=== PATIENT | female | born 1955 | race Caucasian/White ===

== ENCOUNTER 2019-11-12 20:03 | Emergency (ER) | payer SELFPAY ==
--- NOTE | 2019-11-12 20:14 | ED.PSYCH ---
HPI - Psych General Chief Complaint: Psychiatric Symptoms Stated Complaint: psych Time Seen by Provider: 11/12/19 20:05 Source: patient, RN notes reviewed and police Mode of arrival: EMS Limitations: no limitations History of Present Illness HPI Narrative: Pt is a 63 y/o female who presents to the ED, via EMS from home, with c/o behavioral changes that occurred earlier this afternoon. Pt has a hx of anxiety and schizophrenia. Pt thinks is and he is really alive. Due to pt?s psychosis, pt has a court order for the pt not to be at the residence that she shared with her spouse. Today the pt showed up at the house to get her belongings and her spouse called the police. Pt thought the police officers were not real police officers. Pt states that the men were at the house to kill her. Pt states that she was sitting in her living room whenever several men came into her house that she did not recognize. Pt states that she was served and was told that she needed to get out of the house. Pt states that her recently passed and she has been looking for his certificate. She notes that she went to the police station [employer], but there was nobody there. She notes that she went back home and the police came to her house and were aggressive towards her. Pt states that she told the police to shoot her. She states that she was frightened by the men and she requested that the men shoot her. She reports having a rash on her chest d/t having poison oak from carrying logs. Per police, pt's spouse is still alive and they state they talked to the spouse prior to the pt arriving to the ED. Pt was recently kicked out of her home. Pt and her spouse are in a divorce settlement. Police state that pt has been delusional. Police state the pt's spouse lives at home, but the pt does not live with him. Police note that the pt would come to her 's house and steal things. Pt tried to flee away from the police while at her 's house and again when police tried to get the pt into the ambulance. Police confirm the pt told the police officers to shoot her. Police state the pt's behavior has become more erratic. Pt also denies a cough, nasal discharge, nausea, vomiting, diarrhea, fever, chills, visual hallucinations, auditory hallucinations, homicidal ideation, and suicidal ideation. Pt states that she would like to refuse blood work. complaint: other (behavioral changes) Onset (ago): hour(s) Duration: constant Associated psychiatric symptoms: none Associated symptoms: denies other symptoms Related Data Allergies Allergy/AdvReac Type Severity Reaction Status Date / Time ETHER ALLEWRGY Allergy Unknown Uncoded 04/28/09 07:42 Review of Systems Review of Systems: All systems reviewed & are unremarkable except as noted in HPI and below Constitutional: Constitutional: Denies chills and Denies fever(s) ENT: Denies nasal discharge Respiratory: Respiratory: Denies cough Gastrointestinal: Gastrointestinal: Denies diarrhea, Denies nausea and Denies vomiting Integumentary/Breasts: Skin/Breast: Reports rash (on chest) Psychiatric: Psychiatric: Reports behavioral changes, Denies auditory hallucinations, Denies visual hallucinations, Denies homicidal ideation and Denies suicidal ideation PMFSH Past Medical History Medical History (Updated 11/13/19 @ 05:34 by Grayson Carrera MD) Anxiety Psychosis Schizophrenia Surgical History Surgical History (Updated 11/12/19 @ 20:21 by Carol Woods) H/O arthroscopy of left knee Hx of tonsillectomy Social History Social History (Updated 11/12/19 @ 20:21 by Carol Woods) Smoking status: Never smoker Second hand tobacco smoke exposure: No Alcohol intake: current Exam Const: General: healthy appearing, no acute distress, well developed and alert Orientation/consciousness: patient oriented x3 Limitations: no limitations HENMT: Head: normocephalic and atraumatic General nose exam: N
[2019-11-12 20:24] VITALS: BP 181/104; PULSE 85; RESP 20; TEMP 36.7; O2SAT 97
[2019-11-12 20:40] LABS: Basophils Absolute Auto 0.1 K/mm3 (0.0-0.1); Basophils Percent Auto 0.7 % (0.2-1.2); Eosinophils Absolute Auto 0.4 K/mm3 (0-0.3); Eosinophils Percent Auto 3.9 % (0-4.4); Hematocrit 39.2 % (37.0-47.0); Hemoglobin 12.6 g/dL (12.0-15.0); Immature Granulocyte Absolute 0.08 K/mm3 (0.00-0.031); Immature Granulocyte Percent A 0.8 % (0-0.5); Lymphocytes Absolute Auto 2.03 K/mm3 (0.9-3.2); Lymphocytes Percent Auto 20.1 % (18.3-44.2); Mean Corpuscular HGB Conc 32.1 g/dl (32-36); Mean Corpuscular Hemoglobin 29.8 pg (26-34); Mean Corpuscular Volume 92.7 fl (80-100); Mean Platelet Volume 9.3 fl (7.4-10.4); Monocytes Absolute Auto 0.5 K/mm3 (0.1-0.6); Monocytes Percent Auto 4.6 % (2.6-8.5); Neutrophils Absolute Auto 7.1 K/mm3 (1.3-6.7); Neutrophils Percent Auto 69.9 % (45.5-73.1); Platelet Count Result 462 k/mm3 (150-375); Red Blood Count 4.23 M/mm3 (4.2-5.4); Red Cell Distribution Width 14.2 % (11.5-14.5); White Blood Count 10.1 K/mm3 (4.5-10.0)
[2019-11-12 20:53] LABS: Alanine Aminotransferase 20 U/L (4-35); Albumin Level 4.7 g/dL (3.5-5.1); Alkaline Phosphatase 147 U/L (38-126); Aspartate Amino Transferase 22 U/L (14-36); Bilirubin,Total 0.3 mg/dL (0.2-1.3); Blood Urea Nitrogen 18 mg/dL (7-17); Calcium 9.2 mg/dL (8.4-10.2); Carbon Dioxide 26 mmol/L (22-30); Chloride 104 mmol/L (98-107); Estimated CRCL calculation 61 ml/min; Estimated Glomerular Filt Rate 56; Glucose 124 mg/dL (65-105); Potassium 4.1 mmol/L (3.4-5.0); Sodium 139 mmol/L (137-145)
[2019-11-12 20:54] LABS: Ethanol < 10 mg/dL (<10)
[2019-11-12 21:49] LABS: Add Urine Microscopic? YES; Appearance Urine Clear (Clear); Bacteria Urine Trace /hpf; Bilirubin Urine Negative (Negative); Blood Urine Negative (Negative); Color Urine Yellow (Yellow); Glucose Urine UA Negative (Negative); Ketones Urine Negative (Negative); Leukocyte Esterase Ur 1+ LEU/UL (Negative); Mucus Urine Rare /lpf; Nitrate Urine Negative (Negative); Protein Urine Negative (Negative); Specific Grav Ur 1.025 (1.001-1.035); Squamous Epithelial Cell Urine Few /hpf (Few); Urobilinogen Urine Negative mg/dL (<2.0)
[2019-11-12 22:09] LABS: Barbiturate Screen Urine Negative (Negative); Benzodiazepines Screen Urine Negative (Negative)
[2019-11-12 22:21] LABS: Amphetamine Screen Urine Negative (Negative)
[2019-11-12 22:24] LABS: Cannabinoid Screen Urine Negative (Negative); Cocaine Screen Urine Negative (Negative); Opiate Screen Urine Negative (Negative); Phencyclidine Screen Urine Negative (Negative)
[2019-11-12 22:37] LABS: Methadone Screen Urine Negative (Negative)
--- NOTE | 2019-11-12 22:39 | PC.NURSE ---
[facility] [phone] they will send someone out to evaluate pt
--- NOTE | 2019-11-13 02:00 | PC.NURSE ---
[facility] ([place] CALLED AND STATED THAT THEY HAVE NO [facility]EMALES BEDS AVAILABLE AT THIS TIME.
[2019-11-13 02:05] VITALS: BP 169/104; PULSE 86; RESP 16; TEMP 36.7; O2SAT 98
--- NOTE | 2019-11-13 02:06 | PC.NURSE ---
[facility] CALLED FOR INFORMATION ON PATIENT. SENT MEDICAL STABILITY FORM TO BE FILLED OUT AND FAXED BACK.
--- NOTE | 2019-11-13 02:07 | PC.NURSE ---
UNABLE TO GET A PAST MEDICAL HX OUT OF PATIENT OR ANY HOME MEDICATIONS FROM PATIENT AT THIS TIME. MADE AWARE.
--- NOTE | 2019-11-13 03:13 | PC.NURSE ---
[facility] STATES THAT PATIENTS BLOOD PRESSURE IS TOO HIGH AT THIS TIME. STATED THAT PT'S BP NEEDS TO BE LESS THAN 160/100 TO BE ACCEPTED. YESENIA FROM [facility] STATED THAT SHE WOULD CONTACT DOCTOR AT [facility].
[2019-11-13 03:23] VITALS: BP 129/71; PULSE 80; RESP 17; O2SAT 100
--- NOTE | 2019-11-13 04:31 | PC.NURSE ---
PT ACCEPTED TO [facility], DR PANTOJA.
[2019-11-13 04:40] VITALS: BP 133/74; PULSE 88; RESP 19; TEMP 37; O2SAT 100
--- NOTE | 2019-11-13 04:41 | PC.NURSE ---
REPORT GIVEN TO [facility] AT [facility], STATED TO CALL FOR AMBULANCE AT 0700, STATED BED WOULD BE READY THEN.
[2019-11-13 07:11] VITALS: BP 140/85; PULSE 80; RESP 14; O2SAT 100
== END 2019-11-13 07:57 ==
PROVIDERS: Emergency Provider Emergency Medicine; PCP Family Medicine
DX: F29 Unspecified psychosis not due to a substance or known physiological condition (principal); F41.9 Anxiety disorder, unspecified; F20.9 Schizophrenia, unspecified
CPT/HCPCS: 36415; 80053; 80307; 81001; 84443; 85025; 87086; 87088; 99285

== ENCOUNTER 2023-03-10 05:43 | Inpatient (IN) | payer MEDICARE, SELFPAY ==
[2023-03-10] VITALS (26 sets, daily range): BP systolic 72–132; BP diastolic 40–91; PULSE 85–118; RESP 10–20; TEMP 35.9–37.1; O2SAT 78–100
--- NOTE | ~2023-03-10 | US_ITS ---
US venous doppler [facility] DATE: 03/11/2023 10:51 INDICATION: History of deep venous thrombosis TECHNIQUE: Real-time and color flow imaging and Doppler analysis of the veins of the lower extremitie s COMPARISON: None FINDINGS: Right lower extremity: Right greater saphenous vein is patent. There is spontaneous and phasic flow and normal augmentation and color flow signal and normal compression of the right common femoral, femoral and popliteal veins . Thrombus is identified within the left greater saphenous vein, common femoral and femoral and poplite al IMPRESSION: Deep venous thrombosis of left lower extremity. Thrombus within the left greater saphenou s vein No evidence of deep venous fibrosis of right lower extremity Reviewed, dictated and finalized at [facility]. Reviewed, dictated and finalized at location [facility]. IMPRESSION: Deep venous thrombosis of left lower extremity. Thrombus within the left greater saphenous vein No evidence of deep venous fibrosis of right lower extremity
--- NOTE | ~2023-03-10 | CT_ITS ---
EXAMINATION: CT chest abdomen pelvis wo con DATE: 03/11/2023 10:31 INDICATION: Liver masses. TECHNIQUE: Computed tomography (CT) of the chest, abdomen, and pelvis was performed without intraveno us contrast. Automated exposure control and iterative reconstruction technique were employed. The dos e-length product was 1831.66 mGy-cm. COMPARISON: Ultrasound kidneys 03/10/2023, ultrasound pelvis 03/11/23 FINDINGS: CHEST CT: The lungs demonstrate mild atelectasis. Calcified left lung nodules and calcified left hilar lymph no sonia are consistent with old granulomatous disease. There are trace pleural effusions. The heart size is normal. There are coronary artery calcifications. No pericardial effusion. A right internal jugula r central venous catheter is seen with tip at the superior cavoatrial junction. There is severe cervi elizabeth spondylosis and moderate thoracic spondylosis. ABDOMEN/PELVIS CT: The liver demonstrates focal steatosis adjacent to the falciform ligament. The gallbladder is normal in size and contains a gallstone. 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 Calcifications in the spleen are consistent with old granulomatous disease. The pancreas and left adr enal gland are normal. There is a 13 mm mass in right adrenal gland measuring low attenuation, consis tent with an adenoma. There is mild right hydronephrosis. There is mild left hydronephrosis. There is asymmetric edema in left perinephric space. There is aortocaval, left para-aortic, bilateral externa l iliac lymphadenopathy. There is an umbilical hernia containing fat. There are no dilated loops of b owel. The appendix is not visualized. The bladder is decompressed by a Smith catheter. There is bladd er wall thickening. The uterus is enlarged. There is a subcutaneous mass in lower anterior abdominal wall, likely scar tissue. There is edema in the pelvic body wall and in the thighs, left worse than r ight. There is a small volume of ascites. There is severe lumbar spondylosis. IMPRESSION: 1. Retroperitoneal and pelvic lymphadenopathy suspicious for metastatic disease. 2. Mild bilateral hydronephrosis. 3. Enlarged uterus. Ultrasound demonstrates thickening of the endometrial complex suspicious for endo metrial carcinoma. 4. Small volume of ascites. 5. Asymmetric thigh edema secondary to left lower limb deep vein thrombosis as seen by ultrasound. 6. Wall thickening, which may be seen with cystitis. Correlate with urinalysis. 7. No correlate for the liver abnormalities seen by ultrasound, which may be secondary to the decreas ed sensitivity of a noncontrast CT. Abdomen MRI without and with contrast is recommended. Reviewed, dictated and finalized at location [facility]. IMPRESSION: 1. Retroperitoneal and pelvic lymphadenopathy suspicious for metastatic disease . 2. Mild bilateral hydronephrosis. 3. Enlarged uterus. Ultrasound demonstrates thickening of the endometrial compl ex suspicious for endometrial carcinoma. 4. Small volume of ascites. 5. Asymmetric thigh edema secondary to left lower limb deep vein thrombosis as seen by ultrasound. 6. Wall thickening, which may be seen with cystitis. Correlate with urinalysis. 7. No correlate for the liver abnormalities seen by ultrasound, which may be se condary to the decreased sensitivity of a noncontrast CT. Abdomen MRI without a nd with contrast is recommended.
--- NOTE | ~2023-03-10 | XR_ITS ---
Portable chest x-ray Comparison: None Clinical History: Shortness of breath Findings: Right-sided central venous line is in satisfactory positions. Lungs are clear, without foc al consolidation or pleural effusion. Cardiomediastinal silhouette is unremarkable. Bones and soft t issues are unremarkable. Impression: Clear lungs. Support line, as above. Reviewed, dictated and finalized at location M. Impression: Clear lungs. Support line, as above.
--- NOTE | ~2023-03-10 | US_ITS ---
EXAMINATION: US pelvic complete DATE: 03/11/2023 10:51 INDICATION: Endometrial thickening. TECHNIQUE: Multiple transabdominal sonographic images of the pelvis were obtained. COMPARISON: None. FINDINGS: The uterus measures 12.7 x 12.7 x 7.2 cm. There is a 4.8 cm parauterine mass that is most likely a morales bserosal fibroid. There is no free fluid in the pelvis. The endometrial complex measures 3.0 cm in th ickness. The ovaries are not visualized. IMPRESSION: 1. Thickened endometrial complex suspicious for endometrial carcinoma. 2. Uterine fibroid. 3. Ovaries not visualized. Reviewed, dictated and finalized at location E.
--- NOTE | ~2023-03-10 | CT_ITS ---
EXAMINATION: CT brain wo con DATE: 03/11/2023 12:25 INDICATION: Mental status change. Liver metastases. TECHNIQUE: Computed tomography (CT) of the head was performed without intravenous contrast. The mA wa s adjusted according to patient size. Iterative reconstruction technique was employed. Exam dose: 60 5.33 mGy-cm total exam DLP. COMPARISON: 06/21/2015 CT brain FINDINGS: No fracture or bone destruction of the cranial vault. The mastoid air cells and included pa ranasal sinuses are unremarkable. No intracranial mass lesion or hemorrhage or cerebrovascular accident. Prominent bilateral carotid si phon internal carotid artery calcifications. No midline shift or mass effect effect. No subdural or e pidural hematoma. IMPRESSION: Cerebral atherosclerosis; negative other significant intracranial abnormality Reviewed, dictated and finalized at [facility]. Reviewed, dictated and finalized at location A.
--- NOTE | ~2023-03-10 | US_ITS ---
EXAMINATION: US renal BI DATE: 03/10/2023 16:18 INDICATION: Abnormal kidney function tests. TECHNIQUE: Multiple ultrasound grayscale images of the kidneys were obtained. COMPARISON: None. FINDINGS: The right kidney measures 9.6 x 5.7 x 5.4 cm. The left kidney measures 8.4 x 5.1 x 3.9 cm. The kidney s demonstrate normal parenchymal echogenicity. There is a 2.0 cm cyst in left kidney. There is no hyd ronephrosis. The bladder is decompressed by a Smith catheter. There are hypoechoic masses in the live r measuring up to 3.3 cm. There are wall calcifications in the gallbladder. There is thickening in th e endometrial complex. IMPRESSION: 1. Mild atrophy of left kidney. No hydronephrosis. 2. Liver masses suspicious for metastatic disease. Abdomen CT or MRI without and with contrast is rec ommended. 3. Thickened endometrial complex. The differential diagnosis includes endometrial hyperplasia, polyp, and carcinoma. Pelvis ultrasound is recommended. Reviewed, dictated and finalized at location E. IMPRESSION: 1. Mild atrophy of left kidney. No hydronephrosis. 2. Liver masses suspicious for metastatic disease. Abdomen CT or MRI without an d with contrast is recommended. 3. Thickened endometrial complex. The differential diagnosis includes endometri al hyperplasia, polyp, and carcinoma. Pelvis ultrasound is recommended.
--- NOTE | ~2023-03-10 | CT_ITS ---
EXAMINATION: 1. US retroperitoneal limited 2. CT biopsy renal DATE: 03/17/2023 11:19 INDICATION: Acute kidney injury. TECHNIQUE: The procedure including the risks, benefits, and alternatives was discussed with the patie nt. Risks discussed included bleeding and infection. The patient verbalized understand of the risks a nd agreed to proceed. A timeout was performed to verify the patient's name, date of , and pro cedure to be performed. I performed real-time ultrasound of the kidneys, but a suitable biopsy window was not identified. The patient was then taken to the CT suite. The skin overlying the right kidney was prepped and draped in usual sterile fashion. Anesthetic was administered with 1% lidocaine subcu taneously. A 16 gauge outer needle was advanced under CT guidance to the kidney. An 18 gauge core bi opsy needle was then used to obtain 3 core biopsy specimens. The exam was terminated without waiting for the pathologist to assess the adequacy of the samples at the patient's request. The dose-length p roduct was 174.34 mGy-cm. The needle was removed and the entry site was cleaned and dressed. There w ere no immediate complications. FINDINGS: Ultrasound images demonstrate bilateral hydronephrosis. CT images demonstrate the outer needle tip adjacent to the right kidney. Again seen is bilateral hydr onephrosis. IMPRESSION: 1. CT-guided random right kidney core needle biopsy. 2. Mild bilateral hydronephrosis. Reviewed, dictated and finalized at location A. IMPRESSION: 1. CT-guided random right kidney core needle biopsy. 2. Mild bilateral hydronephrosis.
--- NOTE | 2023-03-10 06:28 | ECG_ITS ---
Measurements Intervals [place] Rate: 93 P: 41 MA: 161 QRS: 24 QRSD: 80 T: 32 QT: 357 QTc: 445 Interpretive Statements SINUS RHYTHM BORDERLINE ST-T WAVE ABNORMALITY- DIFFUSE LEADS BASELINE ARTIFACT- I, III, AVR, AVL, V2 BORDERLINE ECG NO PREVIOUS ECG AVAILABLE FOR COMPARISON Electronically Signed On 03-10-2023 6:53:00 CDT by Rome Gonsalez D.O.
[2023-03-10 07:01] LABS: Basophils Absolute Auto 0.1 K/mm3 (0.0-0.1); Basophils Percent Auto 0.5 % (0.2-1.2); Eosinophils Absolute Auto 0.1 K/mm3 (0-0.3); Eosinophils Percent Auto 0.5 % (0-4.4); Hematocrit 29.7 % (37.0-47.0); Hemoglobin 9.4 g/dL (12.0-15.0); Immature Granulocyte Percent A 1.5 % (0-0.5); Lymphocytes Absolute Auto 0.81 K/mm3 (0.9-3.2); Lymphocytes Percent Auto 6.3 % (18.3-44.2); Mean Corpuscular HGB Conc 31.6 g/dl (32-36); Mean Corpuscular Hemoglobin 26.9 pg (26-34); Mean Corpuscular Volume 85.1 fl (80-100); Mean Platelet Volume 8.8 fl (7.4-10.4); Monocytes Absolute Auto 0.8 K/mm3 (0.1-0.6); Monocytes Percent Auto 6.5 % (2.6-8.5); Neutrophils Absolute Auto 10.9 K/mm3 (1.3-6.7); Neutrophils Percent Auto 84.7 % (45.5-73.1); Platelet Count Result 534 k/mm3 (150-375); Red Blood Count 3.49 M/mm3 (4.2-5.4); Red Cell Distribution Width 29.4 % (11.5-14.5); White Blood Count 12.9 K/mm3 (4.5-10.0)
[2023-03-10 07:22] LABS: Alanine Aminotransferase 20 U/L (6-35); Albumin Level 3.7 g/dL (3.5-5.1); Alkaline Phosphatase 255 U/L (38-126); Anion Gap 13 mmol/L (8-16); Aspartate Amino Transferase 93 U/L (14-36); Bilirubin,Total 0.7 mg/dL (0.2-1.3); Blood Urea Nitrogen 54 mg/dL (7-17); Calcium 8.4 mg/dL (8.4-10.2); Carbon Dioxide 25 mmol/L (22-30); Chloride 86 mmol/L (98-107); Estimated CRCL calculation 12 ml/min; Estimated Glomerular Filt Rate 8; Glucose 94 mg/dL (65-110); Sodium 124 mmol/L (137-145)
[2023-03-10 07:23] LABS: Platelet Estimate Increased (Adequate)
[2023-03-10 07:24] LABS: Anisocytosis 1+ (NORMAL); Platelet Clumps Present; Schistocytes None Seen (NORMAL)
[2023-03-10 07:25] LABS: Microcytosis 1+ (NORMAL)
[2023-03-10 07:32] LABS: NT Pro B Type Natriuretic Pept 1880 pg/mL (19.9-100)
--- NOTE | 2023-03-10 07:45 | ED.GENADULT ---
HPI - General Adult General Chief complaint: Weakness Stated complaint: Renal Failure Time Seen by Provider: 03/10/23 06:01 History of Present Illness HPI narrative: Patient is a 67-year-old female who presents to the ER with concerns of weakness and renal failure. Patient reports that her ex- just drove her from [facility] to here and dropped her off. She had recently been hospitalized for renal failure and underwent hemodialysis for fluid removal. She reports she has been in otherwise good health chronically. Chart review shows that patient does have history of mental illness and has been seen here before. Patient reports that she has paperwork about her hospitalization in [place] however with her consent have gone through her person belongings and the only paperwork is [address] One is for her divorce and one for outstanding debt to [employer]. Patient reports prior to her hospitalization she was held against her will in a half-way cell for couple of weeks due to a case of mistaken identity. This cannot be confirmed. I asked patient if she was supposed to go to a mcc after her discharge from the hospital, she reports that this was discussed but did not come to fruition. Patient does not seem to be particularly able to care for herself as she was unable to get herself out of the car when she arrived here and she has been incontinent on herself with skin breakdown. Related Data Home Medications Medication Instructions Recorded Confirmed Unable to Obtain Home Medications 03/10/23 03/10/23 Allergies Allergy/AdvReac Type Severity Reaction Status Date / Time Anesthetics - Georgina Type- Allergy Nausea Verified 03/10/23 11:41 Parabens Iodinated Contrast Media Allergy Wheezing Verified 03/10/23 11:41 ETHER ALLEWRGY Allergy Unknown Wheezing Uncoded 03/10/23 11:41 Review of Systems Review of Systems: All systems reviewed & are unremarkable except as noted in HPI and below Constitutional: Constitutional: Denies chills, Denies fever(s) and Reports weakness ENT: Denies nasal congestion and Denies sore throat Cardiovascular: Cardiovascular: Denies chest pain, Denies rapid heart rate and Denies radiating jaw, neck or arm pain Respiratory: Respiratory: Denies cough and Denies dyspnea Gastrointestinal: Gastrointestinal: Denies abdominal pain, Denies nausea and Denies vomiting Genitourinary: Genitourinary: Denies nocturia, Denies dysuria and Reports urinary incontinence Neurologic: Denies syncope, Denies headache(s) and Denies focal weakness PMF Past Medical History Medical History (Updated 03/10/23 @ 18:41 by Grayson Carrera MD) Anxiety Psychosis Schizophrenia Surgical History Surgical History (Updated 11/12/19 @ 20:21 by Carol Woods) H/O arthroscopy of left knee Hx of tonsillectomy Family History Family History Mother Cerebrovascular accident Sibling Hepatitis C Father Acute myocardial infarction Social History Social History Smoking status: Never smoker Second hand tobacco smoke exposure: No Alcohol intake: never Alcohol use details: 1.5 glass of wine per day. Substance use type: other Other substance usage details: CBD Lack of Transportation: No Lack of Food: Never True Current Housing: I Have Housing Concerned About Future Housing: No Difficulty Paying Gas/Electric Bills: No Difficulty Paying for Meds: No Currently Unemployed: No Education: Master's Degree or Higher Difficulty w/ Childcare or Family Care: No Spiritual care concerns: No Exam Narrative: GENERAL: Well-appearing, morbidly obese, and in no acute distress. HEAD: Normocephalic, atraumatic. EYES: PERRL and EOMI. ENT: Mucous membranes moist. CHEST: Clear to auscultation. No respiratory distress. HEART: Regular rate and rhythm. Normal jay
[2023-03-10 07:47] LABS: INR 1.6; Prothrombin Time 20.3 Seconds (11.1-14.7)
[2023-03-10 07:48] LABS: Partial Thromboplastin Time 54.3 SECONDS (22.3-36.8)
--- NOTE | 2023-03-10 08:50 | PC.NURSE ---
pt not producing urine.
--- NOTE | 2023-03-10 12:30 | PM.IMHP ---
H&P: HPI History of Present Illness Date/Time: 03/10/23 12:30 Chief Complaint: Weakness Narrative: ED-HPI narrative: Patient is a 67-year-old female who presents to the ER with concerns of weakness and renal failure.? Patient reports that her ex- just drove her from [facility] to here and dropped her off.? She had recently been hospitalized for renal failure and underwent hemodialysis for fluid removal.? She reports she has been in otherwise good health chronically.? Chart review shows that patient does have history of mental illness and has been seen here before.? Patient reports that she has paperwork about her hospitalization in [place] however with her consent have gone through her person belongings and the only paperwork is [address].? One is for her divorce and one for outstanding debt to [employer].? Patient reports prior to her hospitalization she was held against her will in a shelter cell for couple of weeks due to a case of mistaken identity.? This cannot be confirmed.? I asked patient if she was supposed to go to a penitentiary after her discharge from the hospital, she reports that this was discussed but did not come to fruition.? Patient does not seem to be particularly able to care for herself as she was unable to get herself out of the car when she arrived here and she has been incontinent on herself with skin breakdown. Patient with a history of end-stage renal disease on hemodialysis and psychotic illness schizophrenia patient is poor historian unable to provide detailed review of symptoms or history, patient complains shortness of breath and generalized edema as patient has not received dialysis since he left [place] 3-4 days ago, upon arrival patient BUN is 54 and creatinine 5.6 potassium is 4, will give low-dose of IV Lasix 20 mg to help diurese the patient, patient will be seen by Nephrology and will need dialysis. Patient does have temporary catheter and patient will need permanent catheter with dialysis, patient denies any chest pain shortness of breath or palpitation, complains of being tired and weak, is clinically stable patient will benefit acute rehab will continue to monitor. Patient is admitted as inpatient will send in hospital for 2 midnights with volume overload, end-stage renal disease on hemodialysis Review of Systems Review of Systems: All systems reviewed & are unremarkable except as noted in HPI and below [facility] Past Medical History Medical History (Updated 03/10/23 @ 17:52 by Edouard Dimas MD) Anxiety Psychosis Schizophrenia Surgical History Surgical History (Updated 11/12/19 @ 20:21 by Carol Woods) H/O arthroscopy of left knee Hx of tonsillectomy Family History Family History Mother Cerebrovascular accident Sibling Hepatitis C Father Acute myocardial infarction Social History Social History Smoking status: Never smoker Second hand tobacco smoke exposure: No Alcohol intake: never Alcohol use details: 1.5 glass of wine per day. Substance use type: other Other substance usage details: CBD Lack of Transportation: No Lack of Food: Never True Current Housing: I Have Housing Concerned About Future Housing: No Difficulty Paying Gas/Electric Bills: No Difficulty Paying for Meds: No Currently Unemployed: No Education: Master's Degree or Higher Difficulty w/ Childcare or Family Care: No Spiritual care concerns: No Meds Home Medications and Allergies Home Medications Medication Instructions Recorded Confirmed Type Unable to Obtain Home Medications 03/10/23 03/10/23 History Allergies Allergy/AdvReac Type Severity Reaction Status Date / Time Anesthetics - Georgina Type- Allergy Nausea Verified 03/10/23 11:41 Parabens Iodinated Contrast Media Allergy Wheezing Verified 03/10/23 11:41 ETHER ALLEWRGY Omar
--- NOTE | 2023-03-10 13:12 | PCCCNOTE ---
ER referral for [facility] placement, patient admitted to floor prior to seeing. Admitted to 24-1, attempted to see on the floor but patient was sleeping.
[2023-03-10] MEDS: FUROSEMIDE INJ 40 MG/4 ML VIAL 20 MG IV PUSH (14:33)
[2023-03-10] MEDS: ACETAMINOPHEN 325 MG TABLET 650 MG PO (17:30)
[2023-03-10] MEDS: PIPERACILLIN/TAZ 2.25G/NS 50ML 2.25 GM/50 ML BAG IVPB (20:39)
--- NOTE | 2023-03-10 22:02 | PM.EVENT ---
Event Note Event Note Event Note: Rapid response was called to patient's room after she became unresponsive while staring out in space. Upon my arrival patient had non-rebreather on an assessment was in progress. Subjective: blank staring into space Objective: Patient is in bed extending into a space blank stare known responding non-rebreather mask on Vitals BP 76/48 pulse 118 General: Patient is laying in bed noted to have significant edema 4+ bilateral lower extremities Chest: Right clavicular phos Port-A-Cath in place Respiratory: Clear to auscultation bilaterally no wheezes rhonchi or crackles Cardiovascular: S1-S2 heard no murmur rubs or gallops Abdomen: Nontender nondistended no hepatosplenomegaly no rebound tenderness no rigidity Extremities: 4+ edema Central nervous system: Face is symmetric pupils are equal and reactive to light bilaterally EOM intact no focal sensorimotor deficit Skin: No cyanosis Assessment and plan: 1. Altered mental status: Patient had a brief episode of unresponsiveness nerve with blank stare into the space which resolved after non-rebreather face mask was placed on. Will continue to monitor no signs of focalization. 2. End-stage renal disease: On hemodialysis
[2023-03-10] MEDS: MIDODRINE HCL 2.5 MG TABLET 5 MG PO (22:25)
[2023-03-10] MEDS: MIDODRINE HCL 10 MG TABLET PO (22:25)
[2023-03-11] VITALS (18 sets, daily range): BP systolic 88–108; BP diastolic 43–58; PULSE 89–101; RESP 16–18; TEMP 35.5–37; O2SAT 96–97
--- NOTE | 2023-03-11 02:28 | PC.NURSE ---
pt removed equipment monitor phototypesetting and refused to put it back on
[2023-03-11] MEDS: PIPERACILLIN/TAZ 2.25G/NS 50ML 2.25 GM/50 ML BAG IVPB ×2 (04:10→20:15)
[2023-03-11 05:25] LABS: Albumin Level 2.9 g/dL (3.5-5.1); Anion Gap 10 mmol/L (8-16); Blood Urea Nitrogen 61 mg/dL (7-17); Calcium 7.6 mg/dL (8.4-10.2); Carbon Dioxide 26 mmol/L (22-30); Chloride 88 mmol/L (98-107); Estimated CRCL calculation 10 ml/min; Estimated Glomerular Filt Rate 6; Glucose 77 mg/dL (65-110); Magnesium 1.8 mg/dL (1.6-2.3); Potassium 4.6 mmol/L (3.4-5.0); Sodium 124 mmol/L (137-145)
[2023-03-11 05:28] LABS: Hematocrit 24.9 % (37.0-47.0); Mean Corpuscular HGB Conc 32.1 g/dl (32-36); Mean Corpuscular Hemoglobin 26.6 pg (26-34); Mean Corpuscular Volume 82.7 fl (80-100); Mean Platelet Volume 9.1 fl (7.4-10.4); Platelet Count Result 497 k/mm3 (150-375); Red Blood Count 3.01 M/mm3 (4.2-5.4); Red Cell Distribution Width 29.2 % (11.5-14.5); White Blood Count 13.1 K/mm3 (4.5-10.0)
[2023-03-11 06:00] LABS: Hepatitis B Surface Antigen Negative (Negative)
[2023-03-11 06:06] LABS: HAV RESULT Negative (Negative); Hepatitis B Core IgM Result Negative (Negative)
[2023-03-11 06:22] LABS: Hepatitis B Surface Anti Res Positive; Hepatitis C Virus Antibody Negative (Negative)
--- NOTE | 2023-03-11 09:07 | PM.IMPN ---
Progress Note: A&P Assessment and Plan (1) Volume overload: Code(s): E87.70 - Fluid overload, unspecified Status: Acute Assessment and Plan: ED-HPI narrative: Patient is a 67-year-old female who presents to the ER with concerns of weakness and renal failure.? Patient reports that her ex- just drove her from [facility] to here and dropped her off.? She had recently been hospitalized for renal failure and underwent hemodialysis for fluid removal.? She reports she has been in otherwise good health chronically.? Chart review shows that patient does have history of mental illness and has been seen here before.? Patient reports that she has paperwork about her hospitalization in [place] however with her consent have gone through her person belongings and the only paperwork is [address].? One is for her divorce and one for outstanding debt to [employer]? Patient reports prior to her hospitalization she was held against her will in a penitentiary cell for couple of weeks due to a case of mistaken identity.? This cannot be confirmed.? I asked patient if she was supposed to go to a assisted after her discharge from the hospital, she reports that this was discussed but did not come to fruition.? Patient does not seem to be particularly able to care for herself as she was unable to get herself out of the car when she arrived here and she has been incontinent on herself with skin breakdown. Patient with a history of end-stage renal disease on hemodialysis and psychotic illness schizophrenia patient is poor historian unable to provide detailed review of symptoms or history, patient complains shortness of breath and generalized edema as patient has not received dialysis since he left [place] 3-4 days ago, upon arrival patient BUN is 54 and creatinine 5.6 potassium is 4, will give low-dose of IV Lasix 20 mg to help diurese the patient, patient will be seen by Nephrology and will need dialysis. Patient does have temporary catheter and patient will need permanent catheter with dialysis, patient denies any chest pain shortness of breath or palpitation, complains of being tired and weak, is clinically stable patient will benefit acute rehab will continue to monitor. 03/11/2023: Overnight had an unresponsive episode. Hypotensive during that period. Will start midodrine q.8 hour. Mild leukocytosis. Blood culture x2 has been obtained which is pending at this time. H&H down to 8. Will add albumin infusion for hypotension. Hyponatremia with 124 is stable. This should help with treatment with dialysis. Nephrology on board for dialysis potentially today as tolerated. Renal ultrasound with liver masses suspicious for metastatic disease. Abdominal CT or MRI recommended thickened endometrial complex. Will order pelvic ultrasound. Allergic to contrast so will perform CT chest abdomen pelvis. No hydronephrosis noted chest x-ray with clear lungs. Patient on Zosyn empirically. Patient has a temporary dialysis catheter. She also reports history of DVT diagnosed 4 to 6 ago weeks ago. Will repeat ultrasound venous duplex none of those tests are available for me to review. These were all done in [place]. Her home medications are not obtained. She has anemia will get occult blood. Had on Protonix daily. She reports acute renal failure needing dialysis. Her creatinine was 1 back in 2020 here which is available in our records. She was set up as an outpatient basis however she moved to [place] unclear if she has set of anywhere manager social responsibility consultation. Unclear etiology for acute renal failure. (2) ESRD (end stage renal disease) on dialysis: Code(s): N18.6 - End stage renal disease; Z99.2 - Dependence on renal dialysis Status: Acute Assessment and Plan: Patient will be seen nephrology and will schedule dialysis possibly tomorrow, continue to monitor Subjective Date/time seen: 03/11/23 09:07 Review of Systems Review of Art
--- NOTE | 2023-03-11 11:13 | PM.CNNEP ---
Assessment and Plan Assessment and plan (1) Renal failure: Code(s): N19 - Unspecified kidney failure Status: Acute Assessment and Plan: the patient has renal failure. It is unclear if this is acute or chronic. She was here in 2019 and her creatinine was normal. The circumstances surrounding her imprisonment and hospitalization in [place] are unclear. We are trying to get records from [facility]. She will not allow the hospital/staff to contact her ex-. Taken at face value, it might be that she was dehydrated at the end of her imprisonment and went to the hospital and had renal failure. Perhaps she had rhabdomyolysis question it sounds like she did get some dialysis treatments. Certainly now her labs look like she needs another treatment today will go ahead and give her a dialysis treatment. (2) Volume overload: Code(s): E87.70 - Fluid overload, unspecified Status: Acute Assessment and Plan: The patient has lots of swelling. Etiology of this is unclear. Venous Dopplers are pending. She did have a CT of the abdomen which shows liver metastases. Official reports are pending. One might think that this is an issue with liver failure; cardiac issues can do this as well. Sleep apnea, valvular disorders, or poor LV function. Will check an echocardiogram. (3) Schizophrenia: Code(s): F20.9 - Schizophrenia, unspecified Status: Acute Assessment and Plan: Will try to get a list of her home medications from the hospital (4) Hypotension: Code(s): I95.9 - Hypotension, unspecified Status: Acute Assessment and Plan: blood pressure is low. This would support either heart or liver failure since she has so much swelling. Cortisol deficiency or hypothyroidism could do this as well. She is getting some midodrine. 15 mg q.8 hours might be too high a dose. Will try 10 mg Q 8 for now. We can give her some albumin and dialysis to support her blood pressure so that we can at least get her BUN creatinine down. (5) Mental status alteration: Code(s): R41.82 - Altered mental status, unspecified Status: Acute Assessment and Plan: the patient had a brief period of staring into space last evening. This may have been related to the low blood pressure. She does have appearance of liver Mets on her CT. So will get a CT brain to make sure she does not have something going on structurally in that region Such as Mets or bleeding. She will probably need an MRI of the brain at 1 point as well. History of Present Illness Reason for Consult Consult date: 03/11/23 Chief Complaint Chief complaint: ESRD, Volume Overload History of Present Illness Narrative: Lane is a very pleasant 67-year-old lady who has schizophrenia, low blood pressure, recent renal failure. The patient states that she was in [facility]. She was apparently arrested for mistaken identity and put in nursing home. She was in nursing home for several weeks and says that she did not get food or water for weeks. She ended up in the hospital in [place] where she had renal failure. A PermCath was placed and she had a few dialysis treatments. She apparently lives in [place] so her ex- brought her up to this area so the she could continue dialysis as an outpatient. He dropped her off at the emergency room here. In the emergency room she was evaluated and found to have lots of swelling. Labs showed high BUN and creatinine but normal potassium. She was on a little bit of oxygen. She was admitted. Overnight the patient had a spell where she stared blankly for a few minutes. At that time her blood pressure was even lower than it had been. She was given some midodrine. This morning she seems better. She denies diabetes or prior hypertension. She denies heart attack or stroke. She was healthy before all of this. Review of S
[2023-03-11 12:21] LABS: Immature Reticulocyte Fraction 27.4 % (3.0-15.9); Reticulocyte Hemoglobin Conten 31.6 pg (28.2-35.7); Reticulocyte Percent 3.71 % (0.7-4.3); Reticulocytes Absolute 0.12 M/mm3 (0.02-0.1)
[2023-03-11 12:29] LABS: Creatine Kinase 94 U/L (30-135); Lactate Dehydrogenase 391 U/L (120-246)
[2023-03-11] MEDS: PANTOPRAZOLE SODIUM IV 40 MG VIAL IV PUSH (12:36)
[2023-03-11] MEDS: MIDODRINE HCL 10 MG TABLET PO ×2 (12:36→17:17)
[2023-03-11 12:37] LABS: Complement C3 93 mg/dL (88-165)
[2023-03-11 13:32] LABS: Erythrocyte Sedimentation Rate > 140 mm/hr (0-20)
--- NOTE | 2023-03-11 13:41 | PM.PNNEP ---
Subjective Date/time seen: 03/11/23 13:41 Interval history: Patient is on dialysis and tolerating it well. She was seen at 1:20 p.m. Objective Data Vital Signs Vital Signs: Vital Signs - 24 hr 03/10/23 13:50 03/10/23 17:13 03/10/23 19:30 Temperature 96.7 F L 98.1 F Pulse Rate 94 101 H Respiratory Rate 16 16 Blood Pressure 91/40 L 85/52 L 91/50 L Pulse Oximetry 100 100 Oxygen Delivery Oxygen Flow Rate 03/10/23 20:58 03/10/23 21:04 03/10/23 20:57 Temperature 98.7 F Pulse Rate 118 H 114 H 118 H Respiratory Rate 20 18 Blood Pressure 72/40 L 89/57 L 72/40 L Pulse Oximetry 78 L 78 L Oxygen Delivery Nasal Cannula Oxygen Flow Rate 2 03/10/23 21:05 03/10/23 21:08 03/11/23 00:00 Temperature Pulse Rate 95 Respiratory Rate 16 Blood Pressure 87/57 L Pulse Oximetry 99 99 Oxygen Delivery Non-Rebreather Mask Nasal Cannula Oxygen Flow Rate 15 2 03/10/23 20:00 03/11/23 04:52 Temperature 98 F Pulse Rate 95 91 Respiratory Rate 16 18 Blood Pressure 93/48 L Pulse Oximetry 99 96 Oxygen Delivery Nasal Cannula Oxygen Flow Rate 2 Intake/Output Intake/Output: Intake & Output 03/08/23 03/09/23 03/10/23 03/11/23 23:59 23:59 23:59 23:59 Intake Total 290 220 Output Total 10 Balance 280 220 Meds/Results Medications: Active Medications Generic Name Dose Route Start Last Admin Trade Name Diogenesq PRN Reason Stop Dose Admin Acetaminophen 650 mg 03/10/23 09:24 03/10/23 17:30 Acetaminophen 325 Mg Tablet PO 650 mg Q4H PRN Administration Mild Pain (1-3) or Fever Hydrocodone Bitart/Acetaminophen 1 tab 03/10/23 09:24 Hydrocodone/Acetaminophen (*Crx) 5-325 Mg Tablet PO Q4H PRN Pain Rated 4-6 Piperacillin Sod/Tazobactam Sod 2.25 gm in 50 mls @ 100 mls/hr 03/10/23 20:00 03/11/23 12:40 Zosyn 2.25 Gm/Ns 50 Ml IVPB Not Given Q8H LEX Albumin Human 50 mls @ 50 mls/hr 03/11/23 12:00 Albutein IVPB Q6HR LEX Albumin Human 50 mls @ 999 mls/hr 03/11/23 11:26 Albutein IVPB 03/12/23 11:25 Q10M PRN HYPOTENSION Midodrine 10 mg 03/11/23 09:00 03/11/23 12:36 Midodrine Hcl 10 Mg Tablet PO 10 mg TID LEX Administration Ondansetron HCl 4 mg 03/10/23 09:24 Ondansetron Inj 4 Mg/2 Ml Vial IV PUSH Q4H PRN Nausea Pantoprazole Sodium 40 mg 03/11/23 09:45 03/11/23 12:36 Pantoprazole Sodium Iv 40 Mg Vial IV PUSH 40 mg QAM LEX Administration Perflutren Lipid Microsphere 0 ml 03/11/23 11:26 Perflutren Lipid Microspheres 1.5 Ml Vial Diluted To 10 Ml Total Volume IV PUSH 03/13/23 11:27 ONCE PRN adequate visualization Protocol Radiology Results: ITS Impressions Chest X-Ray 03/10/23 07:13 Impression: Clear lungs. Support line, as above. Renal Ultrasound 03/10/23 16:23 IMPRESSION: 1. Mild atrophy of left kidney. No hydronephrosis. 2. Liver masses suspicious for metastatic disease. Abdomen CT or MRI without and with contrast is recommended. 3. Thickened endometrial complex. The differential diagnosis includes endometrial hyperplasia, polyp, and carcinoma. Pelvis ultrasound is recommended. Head CT 03/11/23 13:16 IMPRESSION: Cerebral atherosclerosis; negative other significant intracranial abnormality Labs Labs: Laboratory Results - last 24 hr 03/11/23 03/11/23 04:42 12:06 WBC 13.1 H RBC 3.01 L Hgb 8.0 L Hct 24.9 L MCV 82.7 MCH 26.6 MCHC 32.1 RDW 29.2 H Plt Count 497 H MPV 9.1 ESR > 140 H Absolute Retic 0.12 H Percent Retic 3.71 Immature Retic Fraction 27.4 H Retic Hgb Content 31.6 Sodium 124 L Potassium 4.6 Chloride 88 L Carbon Dioxide 26 Anion Gap 10 BUN 61 H Creatinine 6.60 H Estim Creat Clear Calc 10 Estimated GFR 6 L Glucose 77 Calcium 7.6 L Phosphorus 6.0 H Magnesium 1.8 Lactate Dehydrogenase 391 H Total Creatine Kinase 94 Albumin 2.9 L R
[2023-03-11 13:53] LABS: Iron 29 ug/dL (37-170)
--- NOTE | 2023-03-11 13:56 | PC.NURSE ---
Unable to obtain urine specimens at this time. Patient not producing urine.
[2023-03-11 14:01] LABS: Percent Iron Saturation 16 % (20-50)
[2023-03-11 14:04] LABS: Vitamin D 25 Hydroxy < 12.8 ng/mL
[2023-03-11] MEDS: SODIUM CHLORIDE 0.9% IV 1,000 ML 999 ML IV CONT (14:52)
[2023-03-11] MEDS: ALBUMIN HUMAN 25% 12.5 GM/50ML 50 ML IVPB ×3 (14:53→23:54)
[2023-03-11 15:48] LABS: Basophils Absolute Auto 0.1 K/mm3 (0.0-0.1); Basophils Percent Auto 0.8 % (0.2-1.2); Eosinophils Absolute Auto 0.1 K/mm3 (0-0.3); Eosinophils Percent Auto 0.6 % (0-4.4); Hematocrit 27.3 % (37.0-47.0); Hemoglobin 8.6 g/dL (12.0-15.0); Immature Granulocyte Absolute 0.16 K/mm3 (0.00-0.031); Immature Granulocyte Percent A 1.1 % (0-0.5); Lymphocytes Absolute Auto 0.89 K/mm3 (0.9-3.2); Lymphocytes Percent Auto 6.3 % (18.3-44.2); Mean Corpuscular HGB Conc 31.5 g/dl (32-36); Mean Corpuscular Hemoglobin 26.5 pg (26-34); Mean Platelet Volume 8.5 fl (7.4-10.4); Monocytes Absolute Auto 0.9 K/mm3 (0.1-0.6); Monocytes Percent Auto 6.5 % (2.6-8.5); Neutrophils Absolute Auto 11.9 K/mm3 (1.3-6.7); Neutrophils Percent Auto 84.7 % (45.5-73.1); Platelet Count Result 470 k/mm3 (150-375); Red Blood Count 3.25 M/mm3 (4.2-5.4); Red Cell Distribution Width 29.6 % (11.5-14.5); White Blood Count 14.1 K/mm3 (4.5-10.0)
[2023-03-11 15:57] LABS: INR 1.5; Prothrombin Time 19.3 Seconds (11.1-14.7)
[2023-03-11 16:00] LABS: Partial Thromboplastin Time 51.1 SECONDS (22.3-36.8)
[2023-03-11 16:04] LABS: Platelet Estimate Increased (Adequate)
[2023-03-11 16:05] LABS: Anisocytosis 2+ (NORMAL); Ovalocytes 1+ (NORMAL); Schistocytes None Seen (NORMAL); Target Cells 1+ (NORMAL)
[2023-03-11 16:46] LABS: Free T4 Free Thyroxine Reflex 0.75 ng/dL (0.78-2.19)
[2023-03-11] MEDS: HEPARIN SOD/D5W 100 UNITS/ML 25,000 UNITS/250 ML BAG 15 UNITS IV CONT (17:12)
--- NOTE | 2023-03-11 18:05 | PC.NURSE ---
Spoke to Pharmacist Javier regarding Albumin administration. Last dose was received at 1453 and wanted to clarify if next scheduled dose at 1800 should be re-timed. Per pharmacist, hang next dose at 1900.
[2023-03-11 18:53] LABS: IFOB Positive Control Positive; Immunochemical Fecal Occult Bl Positive (N)
[2023-03-11 19:25] LABS: Appearance Urine Turbid (Clear); Bilirubin Urine 1+ (Negative); Blood Urine 2+ (Negative); Color Urine Red (Yellow); Glucose Urine UA Negative (Negative); Ketones Urine 1+ mg/dL (Negative); Leukocyte Esterase Ur Negative LEU/UL (Negative); Nitrate Urine Negative (Negative); Protein Urine 3+ mg/dL (Negative); Urobilinogen Urine 0.2 mg/dL (<2.0)
[2023-03-11 19:31] LABS: Toxigenic C. Diff NEGATIVE (NEGATIVE)
[2023-03-11] MEDS: ACETAMINOPHEN 325 MG TABLET 650 MG PO (19:31)
[2023-03-11 19:32] LABS: Add Urine Microscopic? YES; RBC Urine >100 /hpf (0-2); Squamous Epithelial Cell Urine Few /hpf (Few); WBC Urine 0-5 /hpf (0-3)
[2023-03-11 19:33] LABS: Bacteria Urine Trace /hpf
[2023-03-11 19:47] LABS: Creatinine Urine 67.3 mg/dL
[2023-03-11 20:07] LABS: Sodium Urine Random 108 meq/L
[2023-03-11 21:01] LABS: Total Protein Urine Random > 600 mg/dL
[2023-03-12] VITALS (8 sets, daily range): BP systolic 89–103; BP diastolic 52–55; PULSE 85–92; RESP 18–20; TEMP 36–36.4; O2SAT 97–98
[2023-03-12 00:17] LABS: Partial Thromboplastin Time 156.5 SECONDS (22.3-36.8)
--- NOTE | 2023-03-12 00:59 | PC.NURSE ---
per PTT results, heparin infusion held for 1 hour starting at 00:30
[2023-03-12] MEDS: PIPERACILLIN/TAZ 2.25G/NS 50ML 2.25 GM/50 ML BAG IVPB ×3 (05:17→20:34)
[2023-03-12] MEDS: ALBUMIN HUMAN 25% 12.5 GM/50ML 50 ML IVPB ×3 (05:18→17:26)
[2023-03-12 07:12] LABS: Basophils Absolute Auto 0.1 K/mm3 (0.0-0.1); Basophils Percent Auto 0.9 % (0.2-1.2); Eosinophils Absolute Auto 0.3 K/mm3 (0-0.3); Eosinophils Percent Auto 2.6 % (0-4.4); Hematocrit 23.9 % (37.0-47.0); Hemoglobin 7.4 g/dL (12.0-15.0); Immature Granulocyte Absolute 0.28 K/mm3 (0.00-0.031); Immature Granulocyte Percent A 2.4 % (0-0.5); Lymphocytes Absolute Auto 0.85 K/mm3 (0.9-3.2); Lymphocytes Percent Auto 7.3 % (18.3-44.2); Mean Corpuscular Hemoglobin 26.3 pg (26-34); Mean Corpuscular Volume 85.1 fl (80-100); Mean Platelet Volume 8.5 fl (7.4-10.4); Monocytes Absolute Auto 0.8 K/mm3 (0.1-0.6); Monocytes Percent Auto 6.7 % (2.6-8.5); Neutrophils Absolute Auto 9.3 K/mm3 (1.3-6.7); Neutrophils Percent Auto 80.1 % (45.5-73.1); Platelet Count Result 453 k/mm3 (150-375); Red Blood Count 2.81 M/mm3 (4.2-5.4); Red Cell Distribution Width 29.9 % (11.5-14.5); White Blood Count 11.7 K/mm3 (4.5-10.0)
[2023-03-12 07:34] LABS: Alanine Aminotransferase 15 U/L (6-35); Albumin Level 3.1 g/dL (3.5-5.1); Alkaline Phosphatase 191 U/L (38-126); Anion Gap 10 mmol/L (8-16); Aspartate Amino Transferase 70 U/L (14-36); Bilirubin,Total 0.6 mg/dL (0.2-1.3); Blood Urea Nitrogen 38 mg/dL (7-17); Calcium 7.5 mg/dL (8.4-10.2); Carbon Dioxide 29 mmol/L (22-30); Chloride 92 mmol/L (98-107); Creatine Kinase 81 U/L (30-135); Estimated CRCL calculation 15 ml/min; Estimated Glomerular Filt Rate 9; Glucose 104 mg/dL (65-110); Magnesium 1.8 mg/dL (1.6-2.3); Potassium 3.5 mmol/L (3.4-5.0); Sodium 131 mmol/L (137-145)
[2023-03-12 07:37] LABS: Partial Thromboplastin Time 100.5 SECONDS (22.3-36.8)
[2023-03-12 07:40] LABS: Anisocytosis 2+ (NORMAL); Hypochromasia 1+ (NORMAL); Macrocytosis 1+ (NORMAL); Platelet Clumps Present
[2023-03-12 07:41] LABS: Platelet Estimate Increased (Adequate); Schistocytes Rare (NORMAL); Target Cells 1+ (NORMAL)
[2023-03-12] MEDS: LEVOTHYROXINE SODIUM 50 MCG TABLET PO (08:41)
[2023-03-12] MEDS: MIDODRINE HCL 10 MG TABLET PO ×3 (08:42→17:26)
[2023-03-12] MEDS: PANTOPRAZOLE SODIUM IV 40 MG VIAL IV PUSH (08:42)
--- NOTE | 2023-03-12 10:05 | WPDGICN ---
Assessment and Plan Assessment and plan (1) Acute on chronic blood loss anemia: Code(s): D62 - Acute posthemorrhagic anemia Status: Acute Assessment and Plan: probably anemia is from end stage renal disease, also possible endometrial cancer (will need rn obgyn evaluation) she is on heparin gtt at this point, hold off on endoscopy evaluation until can be put on hold for few hours no overt gib and she has other reason to be anemic (2) ESRD (end stage renal disease) on dialysis: Code(s): N18.6 - End stage renal disease; Z99.2 - Dependence on renal dialysis Status: Acute Assessment and Plan: on dialysis (3) DVT of leg (deep venous thrombosis): Code(s): I82.409 - Acute embolism and thrombosis of unspecified deep veins of unspecified lower extremity Status: Acute Assessment and Plan: on heparin drip (4) Abnormal endometrial ultrasound: Code(s): R93.5 - Abnormal findings on diagnostic imaging of other abdominal regions, including retroperitoneum Status: Acute Assessment and Plan: will need rn obgyn evaluation (5) Volume overload: Code(s): E87.70 - Fluid overload, unspecified Status: Acute (6) Schizophrenia: Code(s): F20.9 - Schizophrenia, unspecified Status: Acute GI Consult Note Consult date/time: 03/12/23 10:05 Reason for consult: fobt+, anemia HPI: Flores Mora is a 67 year old female with a history of renal disease on hemodialysis and schizophrenia. Based on records her ex- just drove her from [facility] to here and dropped her off.? She had recently been hospitalized for renal failure and underwent hemodialysis for fluid removal. Patient reports prior to her hospitalization she was held against her will in a shelter cell for several weeks weeks due to a case of mistaken identity.? This cannot be confirmed. A PermCath was placed and she had a few dialysis treatments.?Finally her ex- brought her up to this area so the she could continue dialysis as an outpatient and he dropped her off at the emergency room here. She was found to have significant edema, high BUN and creatinine and continue with dialysis, hgb 7-8, also DVT left leg and now is on heparin gtt. FOBT + but no overt gib, she denies scopes. Imaging showed lymph nodes and consideration of mets as source and also enlarge uterus then pelvic ultrasound concerning for possible endometrial malignancy. Review of Systems Constitutional: Constitutional: Denies chills Eyes: Eyes: Denies blurry vision ENT: Reports Normal hearing present Cardiovascular: Cardiovascular: Reports leg edema Respiratory: Respiratory: Denies cough Gastrointestinal: Gastrointestinal: Denies abdominal pain Musculoskeletal: Musculoskeletal: Denies neck pain Integumentary/Breasts: Skin/Breast: Denies rash Neurologic: Denies confusion [facility] Past Medical History Medical History (Updated 03/12/23 @ 10:12 by Solis Piedra MD) Abnormal endometrial ultrasound Acute on chronic blood loss anemia Anxiety DVT of leg (deep venous thrombosis) Psychosis Schizophrenia Surgical History Surgical History H/O arthroscopy of left knee Hx of tonsillectomy Family History Family History Mother Cerebrovascular accident Sibling Hepatitis C Father Acute myocardial infarction Social History Social History Smoking status: Never smoker Second hand tobacco smoke exposure: No Alcohol intake: never Alcohol use details: 1.5 glass of wine per day. Substance use type: other Other substance usage details: CBD Lack of Transportation: No Lack of Food: Never True Current Housing: I Have Housing Concerned About Future Housing: No Difficulty Paying Gas/Electric Bills: No Difficulty Paying for Meds: No
[2023-03-12 10:24] LABS: Free T4 Free Thyroxine Reflex 0.66 ng/dL (0.78-2.19)
--- NOTE | 2023-03-12 10:43 | PM.PNNEP ---
Progress Note: A&P Assessment and Plan (1) Renal failure: Code(s): N19 - Unspecified kidney failure Status: Acute Assessment and Plan: the patient has renal failure. It is unclear if this is acute or chronic. renal sonogram shows mild atrophy on the left. ESR greater than 140. Complements are normal so far UA shows red color with lots of protein. Urine protein is greater than 9g/gCr urine electrolytes are non pre renal She was here in 2019 and her creatinine was normal. It is unclear whether this is acute or chronic renal insufficiency. He does have a smallish kidney on the left but otherwise no anatomical issues. She has multiple pelvic issues going on. 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 This cancer could be causing bilateral hydronephrosis. Her urine is reddish brown. This could be ATN or possible have some erosion of the cancer into her bladder. She has a high sed rate which could be from the cancer or could indicate an inflammatory disease. The large amount of protein in the urine also suggests some sort of a glomerulonephritis. At this point will get Urology involved. Consider scoping to see what is going on the bladder causing the red urine. Language Assistant has been consulted for the endometrial issue. Long discussion with the patient. (2) Volume overload: Code(s): E87.70 - Fluid overload, unspecified Status: Acute Assessment and Plan: The patient has lots of swelling. Venous Dopplers do show a DVT on the left but not on the right. she is getting anticoagulants for this. Etiology of bilateral edema Could be due to retroperitoneal carcinomatosis, liver issues with the masses there, or the renal failure. Her low blood pressure makes it more likely that the former 2 options would be more likely than the latter option alone. Will continue to try to remove fluid on dialysis and use albumin for support. (3) Schizophrenia: Code(s): F20.9 - Schizophrenia, unspecified Status: Acute Assessment and Plan: Will try to get a list of her home medications from the hospital (4) Hypotension: Code(s): I95.9 - Hypotension, unspecified Status: Acute Assessment and Plan: blood pressure is low. This would support either heart or liver failure since she has so much swelling. Cortisol level is normal. TSH is elevated. She was started on levothyroxine. She is on midodrine for blood pressure support. (5) Mental status alteration: Code(s): R41.82 - Altered mental status, unspecified Status: Acute Assessment and Plan: the patient had a brief period of staring into space Night before last. Possibly related to the low blood pressure? CT brain was negative for issues that would cause this. (6) Erythropoietin deficiency anemia: Code(s): D63.1 - Anemia in chronic kidney disease Status: Acute Assessment and Plan: hemoglobin dropped a little bit. Iron level is low. Will give her iron and Epogen. (7) Renal osteodystrophy: Code(s): N25.0 - Renal osteodystrophy Status: Acute Assessment and Plan: Phosphorus level is high. Will give calcium acetate since her calcium level is a little bit on the low side. Her vitamin-D is low as well so will give some of this. Subjective Date/time seen: 03/12/23 10:43 Interval history: The patient feels better than she has in days. She denies any chest pain or shortness of breath Review of Systems Cardiovascular: Cardiovascular: Reports no additional cardiovascular complaints Respiratory: Respiratory: Reports no additional respiratory complaints Gastrointestinal: Gastrointestinal: Reports no additional gastrointestinal complaints Genitourinary: Genitourinary: Reports no additional female genitourinary complaints Exam Narrative:
[2023-03-12] MEDS: ERGOCALCIFEROL 50,000 UNITS CAPSULE 50000 UNITS PO (11:34)
[2023-03-12] MEDS: IRON SUCROSE COMPLEX 200 MG in SODIUM CHLORIDE 0.9% IV 50 ML 120 MG IVPB (11:34)
[2023-03-12] MEDS: CALCIUM ACETATE 667 MG TABLET 1334 MG PO ×2 (11:35→17:26)
[2023-03-12] MEDS: HEPARIN SOD/D5W 100 UNITS/ML 25,000 UNITS/250 ML BAG 13 UNITS IV CONT (11:35)
--- NOTE | 2023-03-12 11:42 | PM.IMPN ---
Progress Note: A&P Assessment and Plan (1) Volume overload: Code(s): E87.70 - Fluid overload, unspecified Status: Acute Assessment and Plan: ED-HPI narrative: Patient is a 67-year-old female who presents to the ER with concerns of weakness and renal failure.? Patient reports that her ex- just drove her from [facility] to here and dropped her off.? She had recently been hospitalized for renal failure and underwent hemodialysis for fluid removal.? She reports she has been in otherwise good health chronically.? Chart review shows that patient does have history of mental illness and has been seen here before.? Patient reports that she has paperwork about her hospitalization in [place] however with her consent have gone through her person belongings and the only paperwork is [address].? One is for her divorce and one for outstanding debt to [employer].? Patient reports prior to her hospitalization she was held against her will in a fdc cell for couple of weeks due to a case of mistaken identity.? This cannot be confirmed.? I asked patient if she was supposed to go to a senior care after her discharge from the hospital, she reports that this was discussed but did not come to fruition.? Patient does not seem to be particularly able to care for herself as she was unable to get herself out of the car when she arrived here and she has been incontinent on herself with skin breakdown. Patient with a history of end-stage renal disease on hemodialysis and psychotic illness schizophrenia patient is poor historian unable to provide detailed review of symptoms or history, patient complains shortness of breath and generalized edema as patient has not received dialysis since he left [place] 3-4 days ago, upon arrival patient BUN is 54 and creatinine 5.6 potassium is 4, will give low-dose of IV Lasix 20 mg to help diurese the patient, patient will be seen by Nephrology and will need dialysis. Patient does have temporary catheter and patient will need permanent catheter with dialysis, patient denies any chest pain shortness of breath or palpitation, complains of being tired and weak, is clinically stable patient will benefit acute rehab will continue to monitor. 03/11/2023: Overnight had an unresponsive episode. Hypotensive during that period. Will start midodrine q.8 hour. Mild leukocytosis. Blood culture x2 has been obtained which is pending at this time. H&H down to 8. Will add albumin infusion for hypotension. Hyponatremia with 124 is stable. This should help with treatment with dialysis. Nephrology on board for dialysis potentially today as tolerated. Renal ultrasound with liver masses suspicious for metastatic disease. Abdominal CT or MRI recommended thickened endometrial complex. Will order pelvic ultrasound. Allergic to contrast so will perform CT chest abdomen pelvis. No hydronephrosis noted chest x-ray with clear lungs. Patient on Zosyn empirically. Patient has a temporary dialysis catheter. She also reports history of DVT diagnosed 4 to 6 ago weeks ago. Will repeat ultrasound venous duplex none of those tests are available for me to review. These were all done in [place]. Her home medications are not obtained. She has anemia will get occult blood. Had on Protonix daily. She reports acute renal failure needing dialysis. Her creatinine was 1 back in 2019 here which is available in our records. She was set up as an outpatient basis however she moved to [place] unclear if she has set of anywhere social security assessor consultation. Unclear etiology for acute renal failure. 03/12/2023: Patient presented with generalized weakness and management renal failure. 03/10/2023: An unresponsive episode. Hypotensive during that period. CT head negative for any acute findings. Started on midodrine q.8 hour. Mild leukocytosis. Blood culture x2 has been obtained which is pending at this time. H&H down to 8. Added albumin infusion for h
[2023-03-12 12:02] LABS: T4 Thyroxine 3.05 ug/dL (5.53-11.0)
[2023-03-12 14:31] LABS: Partial Thromboplastin Time 123.3 SECONDS (22.3-36.8)
--- NOTE | 2023-03-12 15:08 | PC.NURSE ---
Heparin gtt @ 0745 for titration and verified by second RN Tracy Mitchell. New bag initiated @ 1135 and rate stayed the same. PTT verified @ 1446 and titrated per protocol. Pharmacist Javier edited order to clarify titration protocol from units/hr to ml/hr. When ordered edited, initial bag scan deleted.
[2023-03-12] MEDS: ACETAMINOPHEN 325 MG TABLET 650 MG PO (20:36)
[2023-03-12 21:24] LABS: Partial Thromboplastin Time 63.2 SECONDS (22.3-36.8)
[2023-03-12] MEDS: HEPARIN SODIUM 5,000 UNITS/ML VIAL 3500 UNITS IV PUSH (22:15)
[2023-03-13] VITALS (22 sets, daily range): BP systolic 90–112; BP diastolic 38–62; PULSE 73–102; RESP 16–20; TEMP 35.2–37.1; O2SAT 97–98; BMI 51.2
[2023-03-13] MEDS: ALBUMIN HUMAN 25% 12.5 GM/50ML 50 ML IVPB ×4 (00:41→18:43)
[2023-03-13] MEDS: ACETAMINOPHEN 325 MG TABLET 650 MG PO ×5 (01:20→23:10)
[2023-03-13] MEDS: PIPERACILLIN/TAZ 2.25G/NS 50ML 2.25 GM/50 ML BAG IVPB (03:13)
[2023-03-13 03:23] LABS: Partial Thromboplastin Time 90.3 SECONDS (22.3-36.8)
[2023-03-13 03:24] LABS: Alanine Aminotransferase 17 U/L (6-35); Albumin Level 3.3 g/dL (3.5-5.1); Alkaline Phosphatase 201 U/L (38-126); Anion Gap 13 mmol/L (8-16); Aspartate Amino Transferase 56 U/L (14-36); Bilirubin,Total 0.6 mg/dL (0.2-1.3); Blood Urea Nitrogen 42 mg/dL (7-17); Calcium 7.6 mg/dL (8.4-10.2); Carbon Dioxide 23 mmol/L (22-30); Chloride 94 mmol/L (98-107); Estimated CRCL calculation 13 ml/min; Estimated Glomerular Filt Rate 8; Glucose 95 mg/dL (65-110); Magnesium 1.9 mg/dL (1.6-2.3); Phosphorus 3.7 mg/dL (2.5-4.5); Potassium 3.6 mmol/L (3.4-5.0); Sodium 130 mmol/L (137-145)
--- NOTE | 2023-03-13 07:41 | PM.PNNEP ---
Progress Note: A&P Assessment and Plan (1) Renal failure: Code(s): N19 - Unspecified kidney failure Status: Acute Assessment and Plan: the patient has renal failure. It is unclear if this is acute or chronic. renal sonogram shows mild atrophy on the left. ESR greater than 140. Complements are normal so far Serology and immunofixation are pending UA shows red color with lots of protein. Visually the urine looks muddy brown Urine protein is greater than 9g/gCr urine electrolytes are non pre renal She was here in 2019 and her creatinine was normal. It is unclear whether this is acute or chronic renal insufficiency. He does have a smallish kidney on the left but otherwise no anatomical issues. Obstruction is a possibility. hydronephrosis is present but mild. Will check with Urology. ATN is a possibility. Has muddy brown urine. Inflammatory disease is a possibility with her high sed rate. However the sed rate could be from the cancer. Will get another dialysis today. (2) Volume overload: Code(s): E87.70 - Fluid overload, unspecified Status: Acute Assessment and Plan: The patient has lots of swelling. Venous Dopplers do show a DVT on the left but not on the right. she is getting anticoagulants for this. Etiology of bilateral edema? Renal failure continue dialysis Heart failure echo was ordered Retroperitoneal process Will continue to try to remove fluid on dialysis and use albumin for support. (3) Schizophrenia: Code(s): F20.9 - Schizophrenia, unspecified Status: Acute Assessment and Plan: Will try to get a list of her home medications from the hospital (4) Hypotension: Code(s): I95.9 - Hypotension, unspecified Status: Acute Assessment and Plan: blood pressure is low. This would support either heart or liver failure since she has so much swelling. Cortisol level is normal. TSH is elevated. She was started on levothyroxine. She is on midodrine for blood pressure support. This limits how much fluid we can get off of her (5) Mental status alteration: Code(s): R41.82 - Altered mental status, unspecified Status: Acute Assessment and Plan: the patient had a brief period of staring into space Night before last. Possibly related to the low blood pressure? CT brain was negative for issues that would cause this. No recurrence (6) Erythropoietin deficiency anemia: Code(s): D63.1 - Anemia in chronic kidney disease Status: Acute Assessment and Plan: hemoglobin dropped a little bit. Iron level is low. On iron and Epogen. (7) Renal osteodystrophy: Code(s): N25.0 - Renal osteodystrophy Status: Acute Assessment and Plan: Phosphorus level is high. On calcium plus vitamin-D Subjective Date/time seen: 03/13/23 07:41 Interval history: Patient is awake. Feeling okay. No chest pain or shortness of Still has lots of swelling Exam Narrative: WDWN in NAD skin no rash or subQ nodules head ncat lungs clear cor reg no rub or gallop abd BS+ nontender and soft ext 2+ bilateral lower extremity edema. Objective Data Vital Signs Vital Signs: Vital Signs - 24 hr 03/12/23 08:39 03/12/23 08:00 03/12/23 12:00 Temperature Pulse Rate 87 85 Respiratory Rate Blood Pressure Pulse Oximetry 98 Oxygen Delivery Nasal Cannula Oxygen Flow Rate 2 03/12/23 14:00 03/12/23 16:00 03/12/23 20:26 Temperature 97.6 F 96.8 F L Pulse Rate 92 85 87 Respiratory Rate 19 20 Blood Pressure 90/54 L 103/55 L Pulse Oximetry 97 98 Oxygen Delivery Oxygen Flow Rate 03/12/23 20:00 03/12/23 20:00 03/13/23 00:00 Temperature Pulse Rate 90 90 87 Respiratory Rate 20 Blood Pressure Pulse Oximetry 98 Oxygen Delivery Nasal Cannula Oxygen Flow Rate 2 03/13/23 03:16 03/13/23 04:00 Te
[2023-03-13] MEDS: MIDODRINE HCL 10 MG TABLET PO ×3 (08:13→17:36)
[2023-03-13] MEDS: HEPARIN SOD/D5W 100 UNITS/ML 25,000 UNITS/250 ML BAG 13 UNITS IV CONT (08:58)
[2023-03-13 09:01] LABS: Hematocrit 24.4 % (37.0-47.0); Hemoglobin 7.6 g/dL (12.0-15.0); Mean Corpuscular HGB Conc 31.1 g/dl (32-36); Mean Corpuscular Hemoglobin 27.3 pg (26-34); Mean Corpuscular Volume 87.8 fl (80-100); Mean Platelet Volume 8.6 fl (7.4-10.4); Platelet Count Result 475 k/mm3 (150-375); Red Blood Count 2.78 M/mm3 (4.2-5.4); Red Cell Distribution Width 30.3 % (11.5-14.5); White Blood Count 10.4 K/mm3 (4.5-10.0)
[2023-03-13 09:18] LABS: Partial Thromboplastin Time 95.9 SECONDS (22.3-36.8)
[2023-03-13 09:39] LABS: Band Neutrophils Percent 3 % (0-6); Basophils Percent Manual 1 % (0-1); Eosinophils Absolute Manual 0.72 K/mm3 (0.02-0.5); Eosinophils Percent Manual 7 % (0-4); Lymphocytes Absolute Manual 0.72 K/mm3 (1.1-4.5); Monocytes Percent Manual 1 % (3-9); Neutrophils Absolute Manual 8.73 K/mm3 (1.7-7.2); Neutrophils Percent Manual 81 % (46-73); Nucleated Red Blood Cells 1 %; Platelet Estimate Increased (Adequate); Total Cells Counted 100
[2023-03-13 09:40] LABS: Hypochromasia 3+ (NORMAL); Polychromasia 1+ (NORMAL); Schistocytes None Seen (NORMAL)
[2023-03-13 09:41] LABS: Ovalocytes 1+ (NORMAL)
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
[2023-03-13] MEDS: SODIUM CHLORIDE 0.9% IV 1,000 ML 999 ML IV CONT (10:21)
--- NOTE | 2023-03-13 12:19 | WPDGIPROGNO ---
Progress Note: A&P Assessment and Plan (1) ESRD (end stage renal disease) on dialysis: Code(s): N18.6 - End stage renal disease; Z99.2 - Dependence on renal dialysis Status: Acute Assessment and Plan: on dialysis (2) Acute on chronic blood loss anemia: Code(s): D62 - Acute posthemorrhagic anemia Status: Acute Assessment and Plan: this probably is multifactorial from renal failure, edema, possible endometrial malignancy no previous colonoscopy but she is still on heparin gtt because new diagnosis of left leg DVT we can perform colonoscopy when can safely hold blood thinners- no overt gib right now (3) Abnormal endometrial ultrasound: Code(s): R93.5 - Abnormal findings on diagnostic imaging of other abdominal regions, including retroperitoneum Status: Acute Assessment and Plan: needs gynecology evaluation (4) Erythropoietin deficiency anemia: Code(s): D63.1 - Anemia in chronic kidney disease Status: Acute (5) Volume overload: Code(s): E87.70 - Fluid overload, unspecified Status: Acute (6) Schizophrenia: Code(s): F20.9 - Schizophrenia, unspecified Status: Acute Subjective Date/time seen: 03/13/23 12:19 Interval history: she is comfortable and getting dialysis right now, denies overt gib Review of Systems Review of Systems: All systems reviewed & are unremarkable except as noted in HPI and below Exam Const: General: comfortable Other: chronically ill appearing HENMT: Face/Nose/Sinus: Normal nares present Eyes: General: appearance normal, both eyes and all related structures Neck: Neck: no JVD Chest: Other: HD catheter in place in rt chest Resp: Auscultation: clear to auscultation bilaterally Cardio: Rate: regular rate Rhythm: regular rhythm GI: Inspection: non-distended GI Palp: Yes Soft to palpation and No Tenderness to palpation present (GI) Auscultation: normal bowel sounds Skin: General skin exam: normal color Neuro: Speech: normal speech Extrem: General: pedal edema (3 + edema) bilaterally Psych: Mental Status: mental status grossly normal Objective Data Vital Signs Vital Signs: Vital Signs - 24 hr 03/12/23 14:00 03/12/23 16:00 03/12/23 20:26 Temperature 97.6 F 96.8 F L Pulse Rate 92 85 87 Respiratory Rate 19 20 Blood Pressure 90/54 L 103/55 L Pulse Oximetry 97 98 Oxygen Delivery Oxygen Flow Rate 03/12/23 20:00 03/12/23 20:00 03/13/23 00:00 Temperature Pulse Rate 90 90 87 Respiratory Rate 20 Blood Pressure Pulse Oximetry 98 Oxygen Delivery Nasal Cannula Oxygen Flow Rate 2 03/13/23 03:16 03/13/23 04:00 03/13/23 08:43 Temperature 97.1 F L Pulse Rate 85 73 81 Respiratory Rate 20 Blood Pressure 102/58 L 95/53 L Pulse Oximetry 97 Oxygen Delivery Oxygen Flow Rate 03/13/23 09:00 03/13/23 08:35 03/13/23 09:20 Temperature 98.1 F Pulse Rate 86 85 79 Respiratory Rate 16 Blood Pressure 92/48 L 98/51 L 94/44 L Pulse Oximetry Oxygen Delivery Oxygen Flow Rate 03/13/23 08:35 03/13/23 09:40 03/13/23 10:00 Temperature Pulse Rate 85 79 Respiratory Rate Blood Pressure 94/47 L 92/48 L Pulse Oximetry Oxygen Delivery Oxygen Flow Rate 2 03/13/23 10:20 03/13/23 10:40 03/13/23 11:00 Temperature Pulse Rate 78 83 85 Respiratory Rate Blood Pressure 92/50 L 94/53 L 95/54 L Pulse Oximetry Oxygen Delivery Oxygen Flow Rate 03/13/23 11:20 03/13/23 11:40 03/13/23 12:00 Temperature Pulse Rate 89 89 92 Respiratory Rate Blood Pressure 91/49 L 92/46 L 112/49 L Pulse Oximetry Oxygen Delivery Oxygen Flow Rate 03/13/23 08:00 Temperature Pulse Rate 85 Respiratory Rate Blood Pressure Pulse Oximetry Oxygen Delivery Oxygen Flow Rate Intake/Output Intake/Output: Intake & Output 03/10/23 03/11/23 03/12/23 03/13/23 23:59 23:59 23:59 23:59 I
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
[2023-03-13] MEDS: CALCIUM ACETATE 667 MG TABLET 1334 MG PO ×2 (13:21→17:36)
[2023-03-13] MEDS: PANTOPRAZOLE SODIUM IV 40 MG VIAL IV PUSH (13:22)
--- NOTE | 2023-03-13 14:03 | PM.CNGS ---
Assessment and Plan Assessment and plan (1) DVT of leg (deep venous thrombosis): Code(s): I82.409 - Acute embolism and thrombosis of unspecified deep veins of unspecified lower extremity Status: Acute Assessment and Plan: currently no clear indication for filter placed, patient has been on anticoagulation without obvious bleeding, with continue heparin drip for now with cessation for procedures, plan to continue anticoagulation with Eliquis once procedures are done, we will follow along for now (2) Abnormal endometrial ultrasound: Code(s): R93.5 - Abnormal findings on diagnostic imaging of other abdominal regions, including retroperitoneum Status: Acute Assessment and Plan: head refrigeration engineer following, will likely need biopsy (3) ESRD (end stage renal disease) on dialysis: Code(s): N18.6 - End stage renal disease; Z99.2 - Dependence on renal dialysis Status: Acute Assessment and Plan: continue hemodialysis per Nephrology History of Present Illness Consult details Consult date: 03/13/23 Reason for consult: other (IVC filter) Requesting physician: Mohan Briones MD Narrative: The patient is a 67-year-old female with multiple medical issues including schizophrenia, end-stage renal disease, possible pelvic malignancy, bilateral hydronephrosis, now with DVT being anticoagulated. The patient with anemia and a slow downward trend in her H&H. Of note, the patient has no obvious bleeding. General surgery consulted for evaluation possible filter placement. Review of Systems Review of Systems: All systems reviewed & are unremarkable except as noted in HPI and below PMFSH Past Medical History Medical History Abnormal endometrial ultrasound Acute on chronic blood loss anemia Anxiety DVT of leg (deep venous thrombosis) Psychosis Schizophrenia Surgical History Surgical History H/O arthroscopy of left knee Hx of tonsillectomy Family History Family History Mother Cerebrovascular accident Sibling Hepatitis C Father Acute myocardial infarction Social History Social History Smoking status: Never smoker Second hand tobacco smoke exposure: No Alcohol intake: never Alcohol use details: 1.5 glass of wine per day. Substance use type: other Other substance usage details: CBD Lack of Transportation: No Lack of Food: Never True Current Housing: I Have Housing Concerned About Future Housing: No Difficulty Paying Gas/Electric Bills: No Difficulty Paying for Meds: No Currently Unemployed: No Education: Master's Degree or Higher Difficulty w/ Childcare or Family Care: No Spiritual care concerns: No Meds Home Medications and Allergies Home Medications Medication Instructions Recorded Confirmed Type Eliquis 5 mg PO BID 03/11/23 03/11/23 History calcium acetate 667 mg PO TID 03/11/23 03/11/23 History Allergies Allergy/AdvReac Type Severity Reaction Status Date / Time Anesthetics - Georgina Type- Allergy Nausea Verified 03/10/23 11:41 Parabens Iodinated Contrast Media Allergy Wheezing Verified 03/10/23 11:41 ETHER ALLEWRGY Allergy Unknown Wheezing Uncoded 03/10/23 11:41 Vital Signs Vital Signs - 24 hr 03/12/23 16:00 03/12/23 20:26 03/12/23 20:00 Temperature 36.0 C L Pulse Rate 85 87 90 Respiratory Rate 20 Blood Pressure 103/55 L Pulse Oximetry 98 Oxygen Delivery Oxygen Flow Rate 03/12/23 20:00 03/13/23 00:00 03/13/23 03:16 Temperature 36.2 C L Pulse Rate 90 87 85 Respiratory Rate 20 20 Blood Pressure 102/58 L Pulse Oximetry 98 97 Oxygen Delivery Nasal Cannula Oxygen Flow Rate 2 03/13/23 04:00 03/13/23 08:43 03/13/23 09:00 Temperature Pulse Rate 73 81 86 Respiratory Rate
[2023-03-13] MEDS: IRON SUCROSE COMPLEX 200 MG in SODIUM CHLORIDE 0.9% IV 50 ML 120 MG IVPB (14:34)
[2023-03-13] MEDS: TOLNAFTATE 1% POWDER 45 GM BTL 1 APPLIC TOPICAL ×2 (14:44→20:00)
--- NOTE | 2023-03-13 19:18 | WPDCN ---
Assessment and Plan Assessment and plan (1) Abnormal endometrial ultrasound: Code(s): R93.5 - Abnormal findings on diagnostic imaging of other abdominal regions, including retroperitoneum Status: Acute Assessment and Plan: A: Thickened endometrium, pelvic lymphadenopathy, multiple liver masses, DVT/bilateral PE, and elevated CA-125, all suspicious for endometrial malignancy. P: If endometrial sampling proves possible in the hospital bed, that could help facilitate her diagnosis and treatment. As above, she declined my exam today. I will see her tomorrow and try again. HPI Data of Consult Date/Time: 03/13/23 18:15 Requesting Physician: Emily Winters DO Primary Care Provider: Magno PickardMD Consult Narrative Narrative: 67 y/o nulligravida with end stage renal disease, mental illness, and a lower extremity DVT. She has an abnormally thickened endometrium and pelvic lymphadenopathy seen on CT, and a renal ultrasound exam which noted numerous hypoechoic foci in the liver suggestive of metastatic disease. I reviewed records from a recent hospital stay in [place] in January, where she was hospitalized for sepsis and bilateral pulmonary emboli, and had also been recently incarcerated. During that hospital stay, she was found to have a uterine mass. A CA-125 was reportedly elevated, though I cannot find the actual level documented. I was asked to see the patient to consider an endometrial sampling to aid in diagnosis. The patient says she has had no vaginal bleeding. She says she has pain in her lower abdomen. She declines an exam / endometrial sampling this evening, saying she has too much pain. She says she will make time for me tomorrow. Review of Systems Review of Systems: All systems reviewed & are unremarkable except as noted in HPI and below PMFSH Past Medical History Medical History Abnormal endometrial ultrasound Acute on chronic blood loss anemia Anxiety DVT of leg (deep venous thrombosis) Psychosis Schizophrenia Surgical History Surgical History H/O arthroscopy of left knee Hx of tonsillectomy Family History Family History Mother Cerebrovascular accident Sibling Hepatitis C Father Acute myocardial infarction Social History Social History Smoking status: Never smoker Second hand tobacco smoke exposure: No Alcohol intake: never Alcohol use details: 1.5 glass of wine per day. Substance use type: other Other substance usage details: CBD Lack of Transportation: No Lack of Food: Never True Current Housing: I Have Housing Concerned About Future Housing: No Difficulty Paying Gas/Electric Bills: No Difficulty Paying for Meds: No Currently Unemployed: No Education: Master's Degree or Higher Difficulty w/ Childcare or Family Care: No Spiritual care concerns: No Meds Home Medications and Allergies Home Medications Medication Instructions Recorded Confirmed Type Eliquis 5 mg PO BID 03/11/23 03/11/23 History calcium acetate 667 mg PO TID 03/11/23 03/11/23 History Allergies Allergy/AdvReac Type Severity Reaction Status Date / Time Anesthetics - [place]ina Type- Allergy Nausea Verified 03/10/23 11:41 Parabens Iodinated Contrast Media Allergy Wheezing Verified 03/10/23 11:41 ETHER ALLEWRGY Allergy Unknown Wheezing Uncoded 03/10/23 11:41 Vital Signs Vital Signs - 24 hr 03/12/23 20:26 03/12/23 20:00 03/12/23 20:00 Temperature 36.0 C L Pulse Rate 87 90 90 Respiratory Rate 20 20 Blood Pressure 103/55 L Pulse Oximetry 98 98 Oxygen Delivery Nasal Cannula Oxygen Flow Rate 2 03/13/23 00:00 03/13/23 03:16 03/13/23 04:00 Temperature 36.2 C L Pulse Rate 87 85 73 Respiratory Rate 20
[2023-03-14] VITALS (12 sets, daily range): BP systolic 104–126; BP diastolic 55–61; PULSE 77–93; RESP 16–20; TEMP 36.1–36.7; O2SAT 94–100
--- NOTE | 2023-03-14 | ECHO_ITS ---
Patient Info Name: Flores Mora Age: 67 years : 1955 Gender: Female Ht: 64 in Wt: 275 lbs BSA: 2.45 m2 HR: 83 bpm BP: 102 / 58 mmHg Heart Rhythm: Sinus Rhythm Technical Quality: Poor Exam Date: 03/14/2023 11:57 AM Exam Location: [facility] Patient Status: Inpatient Admit Date: 03/11/2023 Staff Ordering Physician: Oscar Barker MD Audiometric Technician: Yu Fan RDCS Attending Provider: Emily Winters DO Referring Physician: Mj MCCALL; Exam Type: CA echo dop color flow w con Study Info Indications - SEVERE EDEMA - HYPOTENSION Complete two-dimensional, color flow and Doppler transthoracic echocardiogram is performed with contrast to opacify the left ventricle and to improve the deliniation of the left ventricle endocardial borders. Contrast/Agitated Saline Contrast/Ag. Saline: Definity Amount: 4.00 ml Administered By: Yu Fan RDCS Existing IV Access: Yes IV Access Condition: patent with no signs of infiltration Reason for Poor Study: poor echocardiographic windows Summary 1. Left ventricular chamber dimension is normal. 2. Left ventricular systolic function is normal, estimated at 60-65%. 3. There is mildly increased left ventricular wall thickness. 4. The left ventricular diastolic function is grade I diastolic dysfunction. 5. Left atrial chamber dimension is mildly enlarged. 6. Right ventricular chamber dimension is mildly enlarged. 7. There is mild aortic valve calcification. 8. There is mild mitral valve regurgitation. 9. There is mild tricuspid valve regurgitation. 10. Mild pulmonary hypertension, estimated pulmonary arterial systolic pressure is 40 mmHg. Left Ventricle Left ventricular chamber dimension is normal. Left ventricular systolic function is normal, estimated at 60-65%. There is mildly increased left ventricular wall thickness. The left ventricular diastolic function is grade I diastolic dysfunction. Right Ventricle Right ventricular chamber dimension is mildly enlarged. Right ventricular systolic function is normal. Left Atria Left atrial chamber dimension is mildly enlarged. Right Atria Right atrial chamber dimension is normal. Atrial Septum Intact interatrial septum visualized by color flow imaging. Aortic Valve The aortic valve is probable trileaflet. There is trace aortic valve regurgitation. There is mild aortic valve calcification. Pulmonic Valve The pulmonic valve is normal. There is no pulmonic valve stenosis. There is trace pulmonic regurgitation. Mitral Valve The mitral valve has normal leaflets. There is no mitral valve stenosis. There is mild mitral valve regurgitation. Tricuspid Valve The tricuspid valve leaflets are normal. There is no significant tricuspid valve stenosis. There is mild tricuspid valve regurgitation. Mild pulmonary hypertension, estimated pulmonary arterial systolic pressure is 40 mmHg. Pericardium/Pleural The pericardium appears normal. Inferior Vena Cava Dilated inferior vena cava with >50% collapse upon inspiration consistent with normal right atrial pressure, 10 mmHg. Aorta The aortic root size at the sinus of Valsalva is normal. Left Ventricular Outflow Tract Name Value Normal LVOT 2D LVOT Diameter 2.18 cm
[2023-03-14] MEDS: ALBUMIN HUMAN 25% 12.5 GM/50ML 50 ML IVPB ×5 (00:22→23:49)
[2023-03-14] MEDS: LIDOCAINE 5% PATCH 1 PATCH TRANSDERM ×2 (02:22→08:48)
[2023-03-14] MEDS: HEPARIN SOD/D5W 100 UNITS/ML 25,000 UNITS/250 ML BAG 13 UNITS IV CONT ×2 (04:39→23:52)
[2023-03-14] MEDS: LEVOTHYROXINE SODIUM 50 MCG TABLET PO (05:38)
[2023-03-14] MEDS: ACETAMINOPHEN 325 MG TABLET 650 MG PO ×3 (05:38→20:29)
[2023-03-14 06:01] LABS: Hematocrit 24.2 % (37.0-47.0); Hemoglobin 7.4 g/dL (12.0-15.0); Mean Corpuscular HGB Conc 30.6 g/dl (32-36); Mean Corpuscular Hemoglobin 26.9 pg (26-34); Mean Platelet Volume 9.1 fl (7.4-10.4); Platelet Count Result 538 k/mm3 (150-375); Red Blood Count 2.75 M/mm3 (4.2-5.4); Red Cell Distribution Width 30.9 % (11.5-14.5); White Blood Count 15.8 K/mm3 (4.5-10.0)
[2023-03-14 06:08] LABS: Partial Thromboplastin Time 103.1 SECONDS (22.3-36.8)
[2023-03-14 06:14] LABS: Albumin Level 3.3 g/dL (3.5-5.1); Anion Gap 9 mmol/L (8-16); Blood Urea Nitrogen 25 mg/dL (7-17); Carbon Dioxide 30 mmol/L (22-30); Chloride 97 mmol/L (98-107); Estimated CRCL calculation 18 ml/min; Estimated Glomerular Filt Rate 12; Glucose 91 mg/dL (65-110); Magnesium 1.9 mg/dL (1.6-2.3); Phosphorus 2.7 mg/dL (2.5-4.5); Potassium 3.2 mmol/L (3.4-5.0); Sodium 136 mmol/L (137-145)
[2023-03-14] MEDS: TOLNAFTATE 1% POWDER 45 GM BTL 1 APPLIC TOPICAL ×2 (08:36→21:48)
[2023-03-14] MEDS: IRON SUCROSE COMPLEX 200 MG in SODIUM CHLORIDE 0.9% IV 50 ML 120 MG IVPB (08:36)
[2023-03-14] MEDS: MIDODRINE HCL 10 MG TABLET PO ×3 (08:36→18:06)
[2023-03-14] MEDS: PANTOPRAZOLE SODIUM IV 40 MG VIAL IV PUSH (08:36)
[2023-03-14] MEDS: CALCIUM ACETATE 667 MG TABLET 1334 MG PO ×3 (08:36→18:05)
[2023-03-14] MEDS: PERFLUTREN LIPID MICROSPHERES 1.5 ML VIAL DILUTED TO 10 ML TOTAL VOLUME IV PUSH (12:20)
--- NOTE | 2023-03-14 13:35 | PM.PNGS ---
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 complete, pt does not want filter at this point Subjective Subjective Date/Time Seen: 03/14/23 13:35 Interval history: no acute issues overnight, pt reports she does not really want any procedures done at this point, no acute bleeding Review of Systems Review of Systems: All systems reviewed & are unremarkable except as noted in HPI and below Exam Const: General: cooperative, comfortable, no acute distress, ill appearing and obese Resp: Auscultation: diminished lung sounds Cardio: Rate: regular rate Rhythm: regular rhythm GI: Inspection: normal to inspection and distended GI Palp: Yes abdominal tenderness, Yes Soft to palpation, Yes Tenderness to palpation present (GI), No Guarding due to palpation present (GI) and No Rigid due to palpation Objective Data Vital Signs Vital Signs: Vital Signs - 24 hr 03/13/23 14:24 03/13/23 16:00 03/13/23 19:38 Temperature 36.3 C L 36.8 C Pulse Rate 102 H 94 94 Respiratory Rate 16 20 Blood Pressure 108/56 L 90/62 L Pulse Oximetry 98 98 Oxygen Delivery Oxygen Flow Rate Fraction of Inspired Oxygen 03/13/23 20:00 03/14/23 04:48 03/13/23 20:00 Temperature 36.1 C L Pulse Rate 91 88 Respiratory Rate 20 Blood Pressure 104/59 L Pulse Oximetry 98 Oxygen Delivery Nasal Cannula Oxygen Flow Rate 1.5 Fraction of Inspired Oxygen 03/14/23 00:00 03/14/23 04:00 03/14/23 08:22 Temperature Pulse Rate 93 86 Respiratory Rate Blood Pressure Pulse Oximetry 94 Oxygen Delivery Room Air Oxygen Flow Rate Fraction of Inspired Oxygen 21 03/14/23 11:15 Temperature Pulse Rate Respiratory Rate Blood Pressure Pulse Oximetry Oxygen Delivery Room Air Oxygen Flow Rate Fraction of Inspired Oxygen Intake/Output Intake/Output: Intake & Output 03/11/23 03/12/23 03/13/23 03/14/23 23:59 23:59 23:59 23:59 Intake Total 660 2200 1180 640 Output Total 2450 50 3000 0 Balance -1790 2150 -1820 640 Meds/Results Medications: Active Medications Generic Name Dose Route Start Last Admin Trade Name Freq PRN Reason Stop Dose Admin Acetaminophen 650 mg 03/10/23 09:24 03/14/23 12:42 Acetaminophen 325 Mg Tablet PO 650 mg Q4H PRN Administration Pain or Fever Calcium Acetate 1,334 mg 03/12/23 12:00 03/14/23 12:43 Calcium Acetate 667 Mg Tablet PO 1,334 mg TIDWM LEX Administration Epoetin Kendrick-epbx 8,000 units/ 10,000 units 03/13/23 14:00 03/13/23 10:20 Epoetin Kendrick-epbx 2,000 units IV PUSH 10,000 units [id number]@1400 [facility] Administration Ergocalciferol 50,000 units 03/12/23 11:30 03/12/23 11:34 Ergocalciferol 50,000 Units Capsule PO 50,000 units [email or web address]@0900 LEX Administration Heparin Sodium (Porcine) 3,500 units 03/11/23 15:00 03/12/23 22:15 Heparin Sodium 5,000 Units/Ml Vial IV PUSH 3,500 units PRN PRN Administration aPTT 55 - 70 seconds Heparin Sodium (Porcine) 6,500 units 03/11/23 15:00 Heparin Sodium 5,000 Units/Ml Vial IV PUSH PRN PRN aPTT less than 55 seconds Albumin Human 50 mls @ 50 mls/hr 03/11/23 12:00 03/14/23 12:42 Albutein IVPB 50 mls/hr Q6HR LEX Administration Heparin Sodium/Dextrose 25,000 units in 250 mls @ 13 mls/hr 03/11/23 15:00 03/14/23 04:43 Heparin Sodium/D5w 100 Units/Ml IV CONT Not Given .[id number] [facility] Protocol 1,300 UNITS/HR Iron Sucrose 200 mg/ Sodium 60 mls @ 120 mls/hr 03/12/23 12:00 03/14/23 08:36 Chloride IVPB 03/16/23 09:29 120 mls/hr QAM LEX Administration Levothyroxine Sodium 50 mcg 03/12/23 07:45 03/14/23 05:38 Levothy
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
--- NOTE | 2023-03-14 14:35 | PM.PNNEP ---
Progress Note: A&P Assessment and Plan (1) Renal failure: Code(s): N19 - Unspecified kidney failure Status: Acute Assessment and Plan: the patient has renal failure. It is unclear if this is acute or chronic. renal sonogram shows mild atrophy on the left. ESR greater than 140. Complements are normal so far Serology and immunofixation are pending UA shows red color with lots of protein. Visually the urine looks muddy brown Urine protein is greater than 9g/gCr urine electrolytes are non pre renal She was here in 2019 and her creatinine was normal. It is unclear whether this is acute or chronic renal insufficiency. He does have a smallish kidney on the left but otherwise no anatomical issues. Obstruction is a possibility. hydronephrosis is present but mild. Await Urology input ATN is a possibility. Has muddy brown urine. The course is rather protracted for ATN though. Inflammatory disease is a possibility with her high sed rate. However the sed rate could be from the cancer. Await serology. Will get another dialysis tomorrow (2) Volume overload: Code(s): E87.70 - Fluid overload, unspecified Status: Acute Assessment and Plan: The patient has lots of swelling. Venous Dopplers do show a DVT on the left but not on the right. she is getting anticoagulants for this. Etiology of bilateral edema? Renal failure certainly contributing continue dialysis Heart failure echo is done and report is Pendintg Retroperitoneal process? Will continue to try to remove fluid on dialysis and use albumin for support. (3) Schizophrenia: Code(s): F20.9 - Schizophrenia, unspecified Status: Acute Assessment and Plan: Will try to get a list of her home medications from the hospital (4) Hypotension: Code(s): I95.9 - Hypotension, unspecified Status: Acute Assessment and Plan: blood pressure is low. This would support either heart or liver failure since she has so much swelling. Cortisol level is normal. TSH is elevated. She was started on levothyroxine. She is on midodrine for blood pressure support. Echo is pending Will use albumin and midodrine to try to get some fluid off. (5) Mental status alteration: Code(s): R41.82 - Altered mental status, unspecified Status: Acute Assessment and Plan: the patient had a brief period of staring into space Night before last. Possibly related to the low blood pressure? CT brain was negative for issues that would cause this. No recurrence (6) Erythropoietin deficiency anemia: Code(s): D63.1 - Anemia in chronic kidney disease Status: Acute Assessment and Plan: hemoglobin dropped a little bit. Iron level is low. On iron and Epogen. (7) Renal osteodystrophy: Code(s): N25.0 - Renal osteodystrophy Status: Acute Assessment and Plan: Phosphorus level is normal now On calcium plus vitamin-D Subjective Date/time seen: 03/14/23 14:35 Interval history: Patient is awake. Feeling okay. Lying flat in bed. She tried to get up in a chair and did so but with great difficulty. ?The swelling needs to go way ? Exam Narrative: WDWN in NAD skin no rash head ncat lungs clear bilaterally cor reg no rub or gallop abd BS+ nontender and soft ext 2+ bilateral lower extremity edema. Objective Data Vital Signs Vital Signs: Vital Signs - 24 hr 03/13/23 16:00 03/13/23 19:38 03/13/23 20:00 Temperature 98.2 F Pulse Rate 94 94 Respiratory Rate 20 Blood Pressure 90/62 L Pulse Oximetry 98 Oxygen Delivery Nasal Cannula Oxygen Flow Rate 1.5 Fraction of Inspired Oxygen 03/14/23 04:48 03/13/23 20:00 03/14/23 00:00 Temperature 97 F L Pulse Rate 91 88 93 Respiratory Rate 20 Blood Pressure 104/59 L Pulse Oximetry 98 Oxygen Delivery Oxygen Flow Rate Fraction
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
[2023-03-14] MEDS: HYDROcodone/acetaminophen (*CRX) 5-325 MG TABLET 1 TAB PO ×2 (18:05→23:36)
[2023-03-15] VITALS (21 sets, daily range): BP systolic 93–120; BP diastolic 43–67; PULSE 74–100; RESP 16–18; TEMP 36.5–37.1; O2SAT 94–97
[2023-03-15] MEDS: HYDROcodone/acetaminophen (*CRX) 5-325 MG TABLET 1 TAB PO ×4 (05:07→20:39)
[2023-03-15] MEDS: ALBUMIN HUMAN 25% 12.5 GM/50ML 50 ML IVPB ×3 (05:23→23:38)
[2023-03-15] MEDS: ACETAMINOPHEN 325 MG TABLET 650 MG PO ×2 (06:17→15:14)
[2023-03-15] MEDS: LEVOTHYROXINE SODIUM 50 MCG TABLET PO (06:20)
[2023-03-15 07:07] LABS: Basophils Absolute Auto 0.1 K/mm3 (0.0-0.1); Basophils Percent Auto 0.9 % (0.2-1.2); Eosinophils Absolute Auto 0.6 K/mm3 (0-0.3); Eosinophils Percent Auto 3.7 % (0-4.4); Hematocrit 24.9 % (37.0-47.0); Hemoglobin 7.4 g/dL (12.0-15.0); Immature Granulocyte Percent A 4.6 % (0-0.5); Lymphocytes Absolute Auto 1.74 K/mm3 (0.9-3.2); Lymphocytes Percent Auto 11.5 % (18.3-44.2); Mean Corpuscular HGB Conc 29.7 g/dl (32-36); Mean Corpuscular Hemoglobin 26.7 pg (26-34); Mean Corpuscular Volume 89.9 fl (80-100); Mean Platelet Volume 8.6 fl (7.4-10.4); Monocytes Percent Auto 6.5 % (2.6-8.5); Neutrophils Absolute Auto 11.1 K/mm3 (1.3-6.7); Neutrophils Percent Auto 72.8 % (45.5-73.1); Nucleated Red Blood Cells Perc 0.1 % (0.0-0.2); Platelet Count Result 493 k/mm3 (150-375); Red Blood Count 2.77 M/mm3 (4.2-5.4); Red Cell Distribution Width 31.6 % (11.5-14.5); White Blood Count 15.2 K/mm3 (4.5-10.0)
[2023-03-15 07:16] LABS: Alanine Aminotransferase 15 U/L (6-35); Albumin Level 3.6 g/dL (3.5-5.1); Alkaline Phosphatase 296 U/L (38-126); Anion Gap 11 mmol/L (8-16); Aspartate Amino Transferase 64 U/L (14-36); Bilirubin,Total 0.8 mg/dL (0.2-1.3); Blood Urea Nitrogen 32 mg/dL (7-17); Calcium 8.5 mg/dL (8.4-10.2); Carbon Dioxide 29 mmol/L (22-30); Chloride 96 mmol/L (98-107); Estimated CRCL calculation 14 ml/min; Estimated Glomerular Filt Rate 9; Glucose 89 mg/dL (65-110); Magnesium 1.9 mg/dL (1.6-2.3); Phosphorus 2.5 mg/dL (2.5-4.5); Potassium 3.5 mmol/L (3.4-5.0); Sodium 136 mmol/L (137-145)
[2023-03-15 07:19] LABS: Partial Thromboplastin Time 91.5 SECONDS (22.3-36.8)
[2023-03-15 08:13] LABS: Anisocytosis 2+ (NORMAL); Hypochromasia 2+ (NORMAL); Large Platelets Present; Ovalocytes 1+ (NORMAL); Platelet Clumps Present; Platelet Estimate Increased (Adequate); Schistocytes None Seen (NORMAL)
--- NOTE | 2023-03-15 08:53 | PCOTNOTE ---
The patient treatment was not able to be completed on 03/15 @ 8:53 patient went to HD. Will attempt again after lunch. Will plan to continue treatment per plan of care.
[2023-03-15] MEDS: SODIUM CHLORIDE 0.9% IV 1,000 ML 999 ML IV CONT (11:12)
--- NOTE | 2023-03-15 13:04 | PM.PNNEP ---
Progress Note: A&P Assessment and Plan (1) Renal failure: Code(s): N19 - Unspecified kidney failure Status: Acute Assessment and Plan: the patient has renal failure. It is unclear if this is acute or chronic. renal sonogram shows mild atrophy on the left. ESR greater than 140. Complements are normal so far Serology and immunofixation are pending UA shows red color with lots of protein. Visually the urine looks muddy brown Urine protein is greater than 9g/gCr urine electrolytes are non pre renal She was here in 2019 and her creatinine was normal. It is unclear whether this is acute or chronic renal insufficiency. He does have a smallish kidney on the left but otherwise no anatomical issues. Obstruction is a possibility. hydronephrosis is present but mild. Await Urology input ATN is a possibility. Has muddy brown urine. The course is rather protracted for ATN though. Inflammatory disease is a possibility with her high sed rate. However the sed rate could be from the cancer. Await serology. Dialysis is underway. (2) Volume overload: Code(s): E87.70 - Fluid overload, unspecified Status: Acute Assessment and Plan: The patient has lots of swelling. Venous Dopplers do show a DVT on the left but not on the right. she is getting anticoagulants for this. Etiology of bilateral edema? Renal failure certainly contributing continue dialysis Heart failure echo is done and report is Pendintg Retroperitoneal process? Trying to remove fluid with dialysis. (3) Schizophrenia: Code(s): F20.9 - Schizophrenia, unspecified Status: Acute Assessment and Plan: Will try to get a list of her home medications from the hospital (4) Hypotension: Code(s): I95.9 - Hypotension, unspecified Status: Acute Assessment and Plan: blood pressure is better today. Echo does not show much. Not much protein in the urine. CT shows the retroperitoneal involvement of likely metastatic cancer. Will continue to try to take fluid off using midodrine albumin to help. (5) Mental status alteration: Code(s): R41.82 - Altered mental status, unspecified Status: Acute Assessment and Plan: the patient had a brief period of staring into space Night before last. Possibly related to the low blood pressure? CT brain was negative for issues that would cause this. No recurrence (6) Erythropoietin deficiency anemia: Code(s): D63.1 - Anemia in chronic kidney disease Status: Acute Assessment and Plan: On iron and Epogen. (7) Renal osteodystrophy: Code(s): N25.0 - Renal osteodystrophy Status: Acute Assessment and Plan: Follow phosphorus Subjective Date/time seen: 03/15/23 13:04 Interval history: Patient is awake. she is having left abd pain. it comes and goes. same as it was. she wants pain meds She is on dialysis and tolerating it well. She was seen at 10:00 a.m.. Blood pressure is doing pretty well. Will go for 3L today if tolerated by her blood pressure. Will use albumin and she is on midodrine as well. Exam Narrative: WDWN in NAD skin no rash head ncat lungs clear bilaterally cor reg no rub or gallop abd BS+ tender where it hurt. She will not let me palpate it. ext 2+ bilateral lower extremity edema. Objective Data Vital Signs Vital Signs: Vital Signs - 24 hr 03/14/23 14:47 03/14/23 16:00 03/14/23 16:53 Temperature 98.1 F Pulse Rate 86 77 Respiratory Rate 16 Blood Pressure 107/55 L Pulse Oximetry 98 Oxygen Delivery Room Air 03/14/23 17:51 03/14/23 20:18 03/14/23 23:36 Temperature 97.5 F L 97.6 F 97.9 F Pulse Rate 89 84 84 Respiratory Rate 20 16 16 Blood Pressure 115/61 118/61 126/60 Pulse Oximetry 95 99 100 Oxygen Delivery 03/14/23 20:30 03/15/23 05:07 03/14/23 20:00 Temperature 97.8 F Pulse R
--- NOTE | 2023-03-15 13:34 | PM.IMPN ---
Progress Note: A&P Assessment and Plan (1) ESRD (end stage renal disease) on dialysis: Code(s): N18.6 - End stage renal disease; Z99.2 - Dependence on renal dialysis Status: Acute Assessment and Plan: Patient with a history of end-stage renal disease on hemodialysis and psychotic illness schizophrenia patient is poor historian unable to provide detailed review of symptoms or history, patient complains shortness of breath and generalized edema as patient has not received dialysis since she left [place] 3-4 days ago, upon arrival patient BUN is 54 and creatinine 5.6 nephrology consulted. Etiology of ESRD is unclear Intermittently Lasix as blood pressure allows Patient has temporary dialysis catheter. Care coordination working to get patient set up with an appropriate living situation and dialysis as an outpatient. (2) Volume overload: Code(s): E87.70 - Fluid overload, unspecified Status: Acute Assessment and Plan: Likely due to her compilation of chronic problems such as end-stage renal disease, diastolic heart failure, etc. Intermittent diuresis as blood pressure allows. Daily weight Monitor serum electrolytes. (3) Hypotension: Code(s): I95.9 - Hypotension, unspecified Status: Acute Assessment and Plan: 03/11/2023: Overnight had an unresponsive episode. Hypotensive during that period. Will start midodrine q.8 hour. continue to monitor pressures. (4) Metastatic cancer: Code(s): C79.9 - Secondary malignant neoplasm of unspecified site Status: Suspected Assessment and Plan: patient was found to have what appeared to be metastatic disease present on her liver during a renal ultrasound. CT abdomen pelvis suspicious for endometrial cancer. Pelvis ultrasound with thickened endometrial complex suspicious for endometrial carcinoma. SALES MERCHANDISING SPECIALIST consulted. Biopsy performed on 03/15/23. Pathology results pending. (5) DVT of leg (deep venous thrombosis): Code(s): I82.409 - Acute embolism and thrombosis of unspecified deep veins of unspecified lower extremity Status: Acute Assessment and Plan: She also reports history of DVT diagnosed 4 to 6 ago weeks ago. Bilateral lower extremity ultrasound positive for DVT in the left lower extremity. patient was started on Eliquis at the time but then transition to heparin while in the hospital and case of a Surgery resume Eliquis once discharged. (6) Erythropoietin deficiency anemia: Code(s): D63.1 - Anemia in chronic kidney disease Status: Acute Assessment and Plan: She has anemia. H&H slightly downtrending. No obvious blood in stool. FOBT did come back positive. Added on Protonix. GI consulted. Patient refused to have colonoscopy performed during this hospitalization. GI encouraged her to follow-up in their office if she changes her mind and they signed off on this patient. Continue to monitor H&H. (7) Schizophrenia: Code(s): F20.9 - Schizophrenia, unspecified Status: Acute Assessment and Plan: so far have not been able to get hold of patient's home medication list. Subjective Date/time seen: 03/15/23 13:34 Interval history: I saw the patient while she was getting dialysis. Patient states that she does have discomfort over her uterus and states I have female parts associated kind of pain . Patient states that her feet have been uncomfortable because she has been wearing socks and she does not like to wear socks. She does have pretty significantly swelling in the lower extremities bilaterally. She denies any nausea, vomiting, chest pain, shortness a breath, dizziness or lightheadedness. Review of Systems Review of Systems: All systems reviewed & are unremarkable except as noted in HPI and below Exam Narrative: GENERAL: Comfortable, no acute distress HENMT: moist mucous membranes EYES: EOM intact b/l NECK: no lymph
--- NOTE | 2023-03-15 13:39 | PCOTNOTE ---
Patient refused treatment this session. Patient stated not on dialysis days patient was supine in the bed with 15 degrees head elevation. Patient requested pain medication. Nursing was notified.
[2023-03-15] MEDS: CALCIUM ACETATE 667 MG TABLET 1334 MG PO ×2 (14:00→16:38)
[2023-03-15] MEDS: MIDODRINE HCL 10 MG TABLET PO ×2 (14:00→16:38)
[2023-03-15] MEDS: PANTOPRAZOLE SODIUM IV 40 MG VIAL IV PUSH (14:00)
[2023-03-15] MEDS: LIDOCAINE 5% PATCH 1 PATCH TRANSDERM (14:02)
[2023-03-15] MEDS: IRON SUCROSE COMPLEX 200 MG in SODIUM CHLORIDE 0.9% IV 50 ML 120 MG IVPB (14:03)
[2023-03-15] MEDS: TOLNAFTATE 1% POWDER 45 GM BTL 1 APPLIC TOPICAL ×2 (14:11→20:41)
[2023-03-15] MEDS: HEPARIN SOD/D5W 100 UNITS/ML 25,000 UNITS/250 ML BAG 13 UNITS IV CONT (16:39)
[2023-03-15 20:18] LABS: Kappa\\Lambda Light Chains 1.12 (0.26-1.65); Lambda Light Chain 112.6 mg/L (5.7-26.3)
[2023-03-16] VITALS (12 sets, daily range): BP systolic 104–128; BP diastolic 60–72; PULSE 60–101; RESP 16–18; TEMP 36.4–37.6; O2SAT 93–98
[2023-03-16] MEDS: HYDROcodone/acetaminophen (*CRX) 5-325 MG TABLET 1 TAB PO ×5 (00:52→18:06)
[2023-03-16] MEDS: ALBUMIN HUMAN 25% 12.5 GM/50ML 50 ML IVPB ×4 (05:26→23:35)
[2023-03-16 05:38] LABS: Hematocrit 26.6 % (37.0-47.0); Hemoglobin 7.9 g/dL (12.0-15.0); Mean Corpuscular HGB Conc 29.7 g/dl (32-36); Mean Corpuscular Volume 90.8 fl (80-100); Mean Platelet Volume 8.9 fl (7.4-10.4); Platelet Count Result 478 k/mm3 (150-375); Red Blood Count 2.93 M/mm3 (4.2-5.4); Red Cell Distribution Width 32.4 % (11.5-14.5); White Blood Count 17.8 K/mm3 (4.5-10.0)
[2023-03-16 05:47] LABS: Partial Thromboplastin Time 94.3 SECONDS (22.3-36.8)
[2023-03-16 06:02] LABS: Alanine Aminotransferase 16 U/L (6-35); Albumin Level 3.5 g/dL (3.5-5.1); Alkaline Phosphatase 411 U/L (38-126); Anion Gap 10 mmol/L (8-16); Aspartate Amino Transferase 80 U/L (14-36); Bilirubin,Total 0.9 mg/dL (0.2-1.3); Blood Urea Nitrogen 20 mg/dL (7-17); Calcium 8.5 mg/dL (8.4-10.2); Carbon Dioxide 34 mmol/L (22-30); Chloride 95 mmol/L (98-107); Estimated CRCL calculation 19 ml/min; Estimated Glomerular Filt Rate 13; Glucose 110 mg/dL (65-110); Magnesium 1.8 mg/dL (1.6-2.3); Phosphorus 1.3 mg/dL (2.5-4.5); Potassium 3.3 mmol/L (3.4-5.0); Sodium 139 mmol/L (137-145)
[2023-03-16] MEDS: LEVOTHYROXINE SODIUM 50 MCG TABLET PO (06:20)
[2023-03-16 07:04] LABS: Hepatitis B Core Ab Total Nonreactive (Nonreactive)
--- NOTE | 2023-03-16 08:22 | PM.PNNEP ---
Progress Note: A&P Assessment and Plan (1) Renal failure: Code(s): N19 - Unspecified kidney failure Status: Acute Assessment and Plan: the patient has renal failure. It is unclear if this is acute or chronic. renal sonogram shows mild atrophy on the left. ESR greater than 140. Complements are normal so far Serology and immunofixation are pending UA shows red color with lots of protein. Visually the urine looks muddy brown Urine protein is greater than 9g/gCr urine electrolytes are non pre renal She was here in 2019 and her creatinine was normal. It is unclear whether this is acute or chronic renal insufficiency. He does have a smallish kidney on the left but otherwise no anatomical issues. Obstruction is a possibility. hydronephrosis is present but mild. Await Urology input ATN and and inflammation could be occurring as well. Dialysis is underway. (2) Volume overload: Code(s): E87.70 - Fluid overload, unspecified Status: Acute Assessment and Plan: The patient has lots of swelling. It has improved with dialysis. Venous Dopplers do show a DVT on the left but not on the right. she is getting anticoagulants for this. Etiology of bilateral edema? Renal failure certainly contributing continue dialysis Heart failure echo is done and report shows findings but not enough to cause all the swelling. Retroperitoneal process? Trying to remove fluid with dialysis. (3) Schizophrenia: Code(s): F20.9 - Schizophrenia, unspecified Status: Acute Assessment and Plan: Will try to get a list of her home medications from the hospital (4) Hypotension: Code(s): I95.9 - Hypotension, unspecified Status: Acute Assessment and Plan: blood pressure is better today. Echo does not show much. Not much protein in the urine. CT shows the retroperitoneal involvement of likely metastatic cancer. Will continue to try to take fluid off using midodrine and albumin to help. Yesterday 3L were removed and the patient feels better. (5) Mental status alteration: Code(s): R41.82 - Altered mental status, unspecified Status: Acute Assessment and Plan: the patient had a brief period of staring into space Night before last. Possibly related to the low blood pressure? CT brain was negative for issues that would cause this. No recurrence (6) Erythropoietin deficiency anemia: Code(s): D63.1 - Anemia in chronic kidney disease Status: Acute Assessment and Plan: On iron and Epogen. (7) Renal osteodystrophy: Code(s): N25.0 - Renal osteodystrophy Status: Acute Assessment and Plan: Phosphorus level is low today. Will stop the calcium acetate. Subjective Date/time seen: 03/16/23 08:22 Interval history: Patient is awake. Patient looks a lot better. Is in less distress. She says her legs are a lot less swollen Exam Narrative: WDWN in NAD skin no rash or subQ nodules head ncat lungs clear bilaterally cor reg no rub or gallop abd BS+ tender where it hurt. She will not let me palpate it. ext 1-2+ bilateral lower extremity edema. Objective Data Vital Signs Vital Signs: Vital Signs - 24 hr 03/15/23 08:33 03/15/23 09:22 03/15/23 09:40 Temperature 98.0 F Pulse Rate 87 83 88 Respiratory Rate 18 Blood Pressure 119/65 118/63 109/51 L Pulse Oximetry Oxygen Delivery 03/15/23 10:00 03/15/23 10:20 03/15/23 10:40 Temperature Pulse Rate 91 96 92 Respiratory Rate Blood Pressure 107/54 L 102/57 L 120/59 L Pulse Oximetry Oxygen Delivery 03/15/23 11:00 03/15/23 11:20 03/15/23 11:40 Temperature Pulse Rate 98 93 98 Respiratory Rate Blood Pressure 103/56 L 114/52 L 94/43 L Pulse Oximetry Oxygen Delivery 03/15/23 12:20 03/15/23 12:00 03/15/23 13:05 Temperature 98.2 F Pulse Rate 97 97 95 Respi
[2023-03-16] MEDS: MIDODRINE HCL 10 MG TABLET PO ×3 (10:02→18:05)
[2023-03-16] MEDS: TOLNAFTATE 1% POWDER 45 GM BTL 1 APPLIC TOPICAL ×2 (10:04→20:23)
[2023-03-16] MEDS: LIDOCAINE 5% PATCH 1 PATCH TRANSDERM (10:05)
[2023-03-16] MEDS: POTASSIUM/PHOSPHORUS/SODIUM 1.5 GM PACKET 1 PACKET PO (10:08)
[2023-03-16] MEDS: PANTOPRAZOLE SODIUM IV 40 MG VIAL IV PUSH (10:10)
[2023-03-16] MEDS: IRON SUCROSE COMPLEX 200 MG in SODIUM CHLORIDE 0.9% IV 50 ML 120 MG IVPB (10:11)
--- NOTE | 2023-03-16 10:52 | PCPTNOTE ---
Patient refused treatment this session due to pain. Patient reported she did not want to do therapy today because of pain and that her doctor said she can refuse therapy today.
[2023-03-16] MEDS: HEPARIN SOD/D5W 100 UNITS/ML 25,000 UNITS/250 ML BAG 13 UNITS IV CONT (12:04)
--- NOTE | 2023-03-16 14:44 | PM.IMPN ---
Progress Note: A&P Assessment and Plan (1) ESRD (end stage renal disease) on dialysis: Code(s): N18.6 - End stage renal disease; Z99.2 - Dependence on renal dialysis Status: Acute Assessment and Plan: Patient with a history of end-stage renal disease on hemodialysis and psychotic illness schizophrenia patient is poor historian unable to provide detailed review of symptoms or history, patient complains shortness of breath and generalized edema as patient has not received dialysis since she left [place] 3-4 days ago, upon arrival patient BUN is 54 and creatinine 5.6 nephrology consulted. Etiology of ESRD is unclear Intermittently Lasix as blood pressure allows Patient has temporary dialysis catheter. Care coordination working to get patient set up with an appropriate living situation and dialysis as an outpatient. (2) Volume overload: Code(s): E87.70 - Fluid overload, unspecified Status: Acute Assessment and Plan: Likely due to her compilation of chronic problems such as end-stage renal disease, diastolic heart failure, etc. Intermittent diuresis as blood pressure allows. Daily weight Monitor serum electrolytes. (3) Hypotension: Code(s): I95.9 - Hypotension, unspecified Status: Acute Assessment and Plan: 03/11/2023: Overnight had an unresponsive episode. Hypotensive during that period. Will start midodrine q.8 hour. continue to monitor pressures. (4) Metastatic cancer: Code(s): C79.9 - Secondary malignant neoplasm of unspecified site Status: Suspected Assessment and Plan: patient was found to have what appeared to be metastatic disease present on her liver during a renal ultrasound. CT abdomen pelvis suspicious for endometrial cancer. Pelvis ultrasound with thickened endometrial complex suspicious for endometrial carcinoma. INDUSTRIAL ELECTRICIAN JOURNEYMAN consulted. Endometrial biopsy performed on 03/15/23. Pathology results pending. (5) DVT of leg (deep venous thrombosis): Code(s): I82.409 - Acute embolism and thrombosis of unspecified deep veins of unspecified lower extremity Status: Acute Assessment and Plan: She also reports history of DVT diagnosed 4 to 6 ago weeks ago. Bilateral lower extremity ultrasound positive for DVT in the left lower extremity. patient was started on Eliquis at the time but then transition to heparin while in the hospital and case of a Surgery resume Eliquis once discharged. (6) Erythropoietin deficiency anemia: Code(s): D63.1 - Anemia in chronic kidney disease Status: Acute Assessment and Plan: She has anemia. H&H slightly downtrending. No obvious blood in stool. FOBT did come back positive. Added on Protonix. GI consulted. Patient refused to have colonoscopy performed during this hospitalization. GI encouraged her to follow-up in their office if she changes her mind and they signed off on this patient. Continue to monitor H&H. (7) Schizophrenia: Code(s): F20.9 - Schizophrenia, unspecified Status: Acute Assessment and Plan: so far have not been able to get hold of patient's home medication list. Subjective Date/time seen: 03/16/23 14:44 Interval history: Patient lying in bed with ex- at her bedside. I answered both her Ex husbands questions regarding her care. I also discussed this case with Nephrology and they suspect the patient may possibly need a renal biopsy to determine why a she has acute on chronic kidney Failure. She states that she is still having some pain in her abdomen around where her uterus is. other than pain she does not have many complaints. She is still pretty edematous and dialysis is helping with this. She has not received scheduled Lasix due to ELPIDIO. patient has been accepted for placement and waiting insurance authorization at this time. Review of Systems Review of Systems: All systems reviewed & are unrema
--- NOTE | 2023-03-16 15:21 | P.PNCROSS_ITS ---
Event Note Event Note Event Note: the patient and I talked at length. It is still unclear why her kidneys are l jaime this. I think it would be a good idea to get a kidney biopsy to see the possibility of recovery. There might be a disorder that could use some treatment to make the kidneys better as well. we discussed the process of the biopsy. We also discussed the risk, i.e. bleeding, 1 in 100 chance of bleeding requiring a blood transfusion ( since her hemoglobin is so low this chance is higher), 1 in 500-1000 chance of bleeding enough to require somebody going in to stop the bleeding or removal of the kidney. we also discussed the benefits, assessment of the likelihood would of her kidney function improving and also discovery of a disease which might need a particular treatment. We discussed alternative which would be just to continue dialysis and hope that the kidneys recover. We discussed at length. the patient opts to get the kidney biopsy.
[2023-03-16] MEDS: ALBUTEROL SULFATE (*SP) AEROSOL 1 PUFF 2 PUFF INHALATION (16:16)
[2023-03-16 17:34] LABS: Complement Total CH50 58 U/mL (31-60)
[2023-03-16] MEDS: ACETAMINOPHEN 325 MG TABLET 650 MG PO (18:05)
[2023-03-16] MEDS: ONDANSETRON INJ 4 MG/2 ML VIAL IV PUSH (20:28)
[2023-03-17] VITALS (10 sets, daily range): BP systolic 107–154; BP diastolic 66–74; PULSE 88–104; RESP 16–22; TEMP 36.4–37.1; O2SAT 92–97
[2023-03-17] MEDS: HYDROcodone/acetaminophen (*CRX) 5-325 MG TABLET 1 TAB PO ×3 (00:46→19:33)
[2023-03-17] MEDS: ALBUTEROL SULFATE (*SP) AEROSOL 1 PUFF 2 PUFF INHALATION ×2 (00:57→16:01)
[2023-03-17 06:41] LABS: CA-125 183 U/mL (<35)
[2023-03-17 07:06] LABS: INR 1.1; Partial Thromboplastin Time 88.3 SECONDS (22.3-36.8); Prothrombin Time 14.8 Seconds (11.1-14.7)
[2023-03-17 07:46] LABS: Alanine Aminotransferase 16 U/L (6-35); Albumin Level 3.7 g/dL (3.5-5.1); Alkaline Phosphatase 507 U/L (38-126); Anion Gap 10 mmol/L (8-16); Aspartate Amino Transferase 80 U/L (14-36); Bilirubin,Total 1.1 mg/dL (0.2-1.3); Blood Urea Nitrogen 25 mg/dL (7-17); Calcium 8.4 mg/dL (8.4-10.2); Carbon Dioxide 35 mmol/L (22-30); Chloride 93 mmol/L (98-107); Estimated CRCL calculation 16 ml/min; Estimated Glomerular Filt Rate 10; Glucose 92 mg/dL (65-110); Magnesium 1.8 mg/dL (1.6-2.3); Phosphorus 1.9 mg/dL (2.5-4.5); Potassium 3.8 mmol/L (3.4-5.0); Sodium 138 mmol/L (137-145)
--- NOTE | 2023-03-17 08:12 | PCOTNOTE ---
Patient refused treatment this session due to pain and nausea. Patient stated I'm not doing this day, you can leave. Tell PT I don't want them either .
[2023-03-17 09:26] LABS: Hematocrit 26.9 % (37.0-47.0); Hemoglobin 7.9 g/dL (12.0-15.0); Mean Corpuscular HGB Conc 29.4 g/dl (32-36); Mean Corpuscular Hemoglobin 27.2 pg (26-34); Mean Corpuscular Volume 92.8 fl (80-100); Mean Platelet Volume 9.8 fl (7.4-10.4); Platelet Count Result 477 k/mm3 (150-375); Red Cell Distribution Width 33.8 % (11.5-14.5)
[2023-03-17] MEDS: TOLNAFTATE 1% POWDER 45 GM BTL 1 APPLIC TOPICAL ×2 (10:04→20:30)
[2023-03-17] MEDS: PANTOPRAZOLE SODIUM IV 40 MG VIAL IV PUSH (10:05)
--- NOTE | 2023-03-17 10:51 | PM.PNNEP ---
Progress Note: A&P Assessment and Plan (1) Renal failure: Code(s): N19 - Unspecified kidney failure Status: Acute Assessment and Plan: the patient has renal failure. It is unclear if this is acute or chronic. renal sonogram shows mild atrophy on the left. ESR greater than 140. Complements are normal so far Serology and immunofixation are pending UA shows red color with lots of protein. Visually the urine looks muddy brown Urine protein is greater than 9g/gCr urine electrolytes are non pre renal She was here in 2019 and her creatinine was normal. It is unclear whether this is acute or chronic renal insufficiency. He does have a smallish kidney on the left but otherwise no anatomical issues. Urology saw the patient on the and felt that she was not obstructed. ATN and and inflammation could be occurring as well. She is going to get a renal biopsy. Will do dialysis tomorrow. (2) Volume overload: Code(s): E87.70 - Fluid overload, unspecified Status: Acute Assessment and Plan: The patient has lots of swelling. It has improved with dialysis. Venous Dopplers do show a DVT on the left but not on the right. she is getting anticoagulants for this. Etiology of bilateral edema? Renal failure certainly contributing continue dialysis Heart failure echo is done and report shows findings but not enough to cause all the swelling. Retroperitoneal process? Working on getting the fluid off with dialysis. Will also try some diuretics. Will start these after the biopsy is done (3) Schizophrenia: Code(s): F20.9 - Schizophrenia, unspecified Status: Acute Assessment and Plan: Will try to get a list of her home medications from the hospital (4) Hypotension: Code(s): I95.9 - Hypotension, unspecified Status: Acute Assessment and Plan: blood pressure is better today. Echo does not show much. Not much protein in the urine. CT shows the retroperitoneal involvement of likely metastatic cancer. She is on midodrine. Albumin to help fluid removed (5) Mental status alteration: Code(s): R41.82 - Altered mental status, unspecified Status: Acute Assessment and Plan: No recurrence (6) Erythropoietin deficiency anemia: Code(s): D63.1 - Anemia in chronic kidney disease Status: Acute Assessment and Plan: On iron and Epogen. (7) Renal osteodystrophy: Code(s): N25.0 - Renal osteodystrophy Status: Acute Assessment and Plan: Phosphorus level is low today. Will stop the calcium acetate. Subjective Date/time seen: 03/17/23 10:51 Interval history: Patient is awake. She does not want to rehab today. She has some nausea today. She is still willing to do the biopsy. Leg swelling is improved Exam Narrative: WDWN in NAD skin no rash or subQ nodules head ncat lungs clear cor reg no rub or gallop abd BS+ nontender ext 1-2+ bilateral lower extremity edema. Objective Data Vital Signs Vital Signs: Vital Signs - 24 hr 03/16/23 12:30 03/16/23 12:00 03/16/23 16:00 Temperature 97.8 F 97.6 F Pulse Rate 69 92 94 Respiratory Rate 16 16 Blood Pressure 118/66 114/60 Pulse Oximetry 98 97 Oxygen Delivery Fraction of Inspired Oxygen 03/16/23 16:18 03/16/23 16:00 03/16/23 19:28 Temperature 97.7 F Pulse Rate 101 H 94 94 Respiratory Rate 18 16 Blood Pressure 113/66 Pulse Oximetry 98 Oxygen Delivery Fraction of Inspired Oxygen 03/16/23 20:00 03/16/23 23:33 03/16/23 20:00 Temperature 99.6 F Pulse Rate 94 88 89 Respiratory Rate 16 16 Blood Pressure 104/60 Pulse Oximetry 98 93 Oxygen Delivery Room Air Fraction of Inspired Oxygen 21 03/17/23 00:46 03/17/23 00:57 Temperature Pulse Rate 97 Respiratory Rate 22 H Blood Pressure 107/67 Pulse Oximetry Oxygen Delivery Fraction of Inspired
--- NOTE | 2023-03-17 11:01 | PCNWS ---
Weekly nutritional screen. Patient is tolerating current diet with adequate intake. No weight loss reported. No nutritional needs at this time.
[2023-03-17] MEDS: ALBUMIN HUMAN 25% 12.5 GM/50ML 50 ML IVPB ×2 (13:14→17:53)
--- NOTE | 2023-03-17 13:21 | PM.IMPN ---
Progress Note: A&P Assessment and Plan (1) ESRD (end stage renal disease) on dialysis: Code(s): N18.6 - End stage renal disease; Z99.2 - Dependence on renal dialysis Status: Acute Assessment and Plan: Patient with a history of end-stage renal disease on hemodialysis and psychotic illness schizophrenia patient is poor historian unable to provide detailed review of symptoms or history, patient complains shortness of breath and generalized edema as patient has not received dialysis since she left [place] 3-4 days ago, upon arrival patient BUN is 54 and creatinine 5.6 nephrology consulted. Etiology of ESRD is unclear Intermittently Lasix as blood pressure allows Patient has temporary dialysis catheter. Care coordination working to get patient set up with an appropriate living situation and dialysis as an outpatient. (2) Volume overload: Code(s): E87.70 - Fluid overload, unspecified Status: Acute Assessment and Plan: Likely due to her compilation of chronic problems such as end-stage renal disease, diastolic heart failure, etc. Intermittent diuresis as blood pressure allows. Daily weight Monitor serum electrolytes. (3) Hypotension: Code(s): I95.9 - Hypotension, unspecified Status: Acute Assessment and Plan: 03/11/2023: Overnight had an unresponsive episode. Hypotensive during that period. Will start midodrine q.8 hour. continue to monitor pressures. (4) Metastatic cancer: Code(s): C79.9 - Secondary malignant neoplasm of unspecified site Status: Suspected Assessment and Plan: patient was found to have what appeared to be metastatic disease present on her liver during a renal ultrasound. CT abdomen pelvis suspicious for endometrial cancer. Pelvis ultrasound with thickened endometrial complex suspicious for endometrial carcinoma. FINGER WAVER consulted. Endometrial biopsy performed on 03/15/23. Pathology results pending. (5) DVT of leg (deep venous thrombosis): Code(s): I82.409 - Acute embolism and thrombosis of unspecified deep veins of unspecified lower extremity Status: Acute Assessment and Plan: She also reports history of DVT diagnosed 4 to 6 ago weeks ago. Bilateral lower extremity ultrasound positive for DVT in the left lower extremity. patient was started on Eliquis at the time but then transition to heparin while in the hospital and case of a Surgery resume Eliquis once discharged. (6) Erythropoietin deficiency anemia: Code(s): D63.1 - Anemia in chronic kidney disease Status: Acute Assessment and Plan: She has anemia. H&H slightly downtrending. No obvious blood in stool. FOBT did come back positive. Added on Protonix. GI consulted. Patient refused to have colonoscopy performed during this hospitalization. GI encouraged her to follow-up in their office if she changes her mind and they signed off on this patient. Continue to monitor H&H. (7) Schizophrenia: Code(s): F20.9 - Schizophrenia, unspecified Status: Acute Assessment and Plan: so far have not been able to get hold of patient's home medication list. Subjective Date/time seen: 03/17/23 13:21 Interval history: Still waiting for placement for outpatient dialysis And rehab. Patient undergoing renal biopsy today. Discussed with Nephrology and they are okay with patient discharging as soon as outpatient therapy is set up. Patient is not wanting her with PT and OT due to her pain. otherwise no new changes. Review of Systems Review of Systems: All systems reviewed & are unremarkable except as noted in HPI and below Exam Narrative: GENERAL: Comfortable, no acute distress HENMT: moist mucous membranes EYES: EOM intact b/l NECK: no lymphadenopathy RESPIRATORY: clear to auscultation CARDIO: RRR GI: soft, nontender, bowel sounds present SKIN: yeasty maceration present under the skin folds of t
--- NOTE | 2023-03-17 14:25 | PCPTNOTE ---
Patient refused treatment this session. Patient reported she does not want PT services while at the hospital and that she will start therapy once she goes to a rehab facility. Attempted to educate patient on the importance of working with therapy while in the hospital, patient refuse education and continued to refuse. Patient stated again she does not want PT services while in the hospital, and that all she needed was to do the PT evaluation to go to rehab.
[2023-03-17 17:49] LABS: INR 1.1; Prothrombin Time 14.7 Seconds (11.1-14.7)
[2023-03-17 17:50] LABS: Partial Thromboplastin Time 42.8 SECONDS (22.3-36.8)
[2023-03-17] MEDS: FUROSEMIDE 80 MG TABLET PO (17:52)
[2023-03-17] MEDS: MIDODRINE HCL 10 MG TABLET PO (17:52)
[2023-03-17] MEDS: HEPARIN SOD/D5W 100 UNITS/ML 25,000 UNITS/250 ML BAG 13 UNITS IV CONT (18:16)
[2023-03-17] MEDS: DOCUSATE SODIUM 100 MG CAPSULE PO (20:29)
[2023-03-18] VITALS (18 sets, daily range): BP systolic 100–157; BP diastolic 52–77; PULSE 71–118; RESP 16–17; TEMP 35.8–37; O2SAT 93
--- NOTE | 2023-03-18 05:43 | PM.GYNPNOP ---
CIRCULAR SAW FILER - A/P Assessment and plan (1) Metastatic cancer: Code(s): C79.9 - Secondary malignant neoplasm of unspecified site Status: Suspected Assessment and Plan: Likely metastatic cancer. Cross covering for Dr. Garner. Endometrial biopsy done was nondiagnostic CA125 elevated. Rec. referral to Reactor Service Operator-Oncology at [facility] (Dr. Clifton) or [facility] upon discharge for further evaluation. Dr. Garner's office can help coordinate next week. Time Spent With Patient Time: Total time spent is greater than 50% in coordination of care (as documented) at patient's floor/unit and/or counseling patient: Time with patient: less than 15 minutes CIRCULAR SAW FILER- PN:Subj Post-Op Subjective Date/time seen: 03/18/23 05:43 CIRCULAR SAW FILER - PN: Obj Data Vital Signs Vital Signs: Vital Signs - 24 hr 03/17/23 08:00 03/17/23 13:15 03/17/23 10:01 Temperature 97.6 F 97.6 F Pulse Rate 88 99 Respiratory Rate 20 20 Blood Pressure 118/70 118/66 Pulse Oximetry 97 96 Oxygen Delivery Room Air 03/17/23 08:00 03/17/23 12:00 03/17/23 16:00 Temperature Pulse Rate 95 95 99 Respiratory Rate Blood Pressure Pulse Oximetry Oxygen Delivery 03/17/23 16:00 03/17/23 19:32 03/17/23 19:52 Temperature 97.6 F 97.6 F Pulse Rate 102 H 66 Respiratory Rate 20 16 Blood Pressure 120/71 132/69 151/43 H Pulse Oximetry 95 98 Oxygen Delivery 03/17/23 19:59 03/17/23 20:00 03/17/23 23:41 Temperature 97.7 F 98.7 F Pulse Rate 104 H 97 Respiratory Rate 16 16 Blood Pressure 133/74 154/66 H Pulse Oximetry 92 96 Oxygen Delivery Room Air 03/17/23 20:00 03/18/23 00:00 03/18/23 04:00 Temperature 98.3 F Pulse Rate 102 H 95 99 Respiratory Rate 16 Blood Pressure 129/71 Pulse Oximetry 93 Oxygen Delivery Intake/Output Intake/Output: Intake & Output 03/15/23 03/16/23 03/17/23 03/18/23 23:59 23:59 23:59 23:59 Intake Total 770 2122 700 400 Output Total 2211 25 50 50 Balance -1441 4893 650 350 Meds/Results Medications: Active Medications Generic Name Dose Route Start Last Admin Trade Name Freq PRN Reason Stop Dose Admin Acetaminophen 650 mg 03/10/23 09:24 03/16/23 18:05 Acetaminophen 325 Mg Tablet PO 650 mg Q4H PRN Administration Pain or Fever Hydrocodone Bitart/Acetaminophen 1 tab 03/14/23 14:22 03/17/23 19:33 Hydrocodone/Acetaminophen (*Crx) 5-325 Mg Tablet PO 1 tab Q4H PRN Administration Pain Rated 7-10 Albuterol 2 puff 03/16/23 15:15 03/17/23 16:01 Albuterol Sulfate (*Sp) Aerosol 1 Puff INHALATION 2 puff Q6HRT PRN Administration Shortness Of Breath Docusate Sodium 100 mg 03/17/23 21:00 03/17/23 20:29 Docusate Sodium 100 Mg Capsule PO 100 mg Q12HR LEX Administration Epoetin Kendrick 10,000 units 03/17/23 14:00 03/17/23 13:34 Epoetin Kendrick 10,000 Units/Ml Vial IV PUSH Not Given [id number] [facility] Ergocalciferol 50,000 units 03/12/23 11:30 03/12/23 11:34 Ergocalciferol 50,000 Units Capsule PO 50,000 units Meza@0900 LEX Administration Furosemide 80 mg 03/17/23 17:00 03/17/23 17:52 Furosemide 80 Mg Tablet PO 80 mg BID LEX Administration Heparin Sodium (Porcine) 3,500 units 03/11/23 15:00 03/12/23 22:15 Heparin Sodium 5,000 Units/Ml Vial IV PUSH 3,500 units PRN PRN Administration aPTT 55 - 70 seconds Heparin Sodium (Porcine) 6,500 units 03/11/23 15:00 Heparin Sodium 5,000 Units/Ml Vial IV PUSH PRN PRN aPTT less than 55 seconds Albumin Human 50 mls @ 50 mls/hr 03/11/23 12:00 03/18/23 03:00 Albutein IVPB Not Given Q6HR LEX Heparin Sodium/Dextrose 25,000 units in 250 mls @ 13 mls/hr 03/11/23 15:00 03/18/23 00:49 Heparin Sodium/D5w 100 Units/Ml IV CONT 1,300 units/hr .[id number] LEX 13 mls/hr Titration Protocol 1,300 UNITS/HR Albumin Human 50 mls @ 999 mls/hr 03/17/23 10:54 Albutein IVPB 03/18/23 10:53 Q10M PRN HYPOTENSION Levo
[2023-03-18] MEDS: ALBUMIN HUMAN 25% 12.5 GM/50ML 50 ML IVPB ×2 (07:34→11:55)
[2023-03-18] MEDS: LEVOTHYROXINE SODIUM 50 MCG TABLET PO (07:35)
[2023-03-18 07:36] LABS: Hematocrit 27.7 % (37.0-47.0); Hemoglobin 8.4 g/dL (12.0-15.0); Mean Corpuscular HGB Conc 30.3 g/dl (32-36); Mean Corpuscular Hemoglobin 28.4 pg (26-34); Mean Corpuscular Volume 93.6 fl (80-100); Mean Platelet Volume 9.2 fl (7.4-10.4); Platelet Count Result 357 k/mm3 (150-375); Red Blood Count 2.96 M/mm3 (4.2-5.4); Red Cell Distribution Width 33.8 % (11.5-14.5); White Blood Count 18.5 K/mm3 (4.5-10.0)
[2023-03-18 07:56] LABS: Alanine Aminotransferase 17 U/L (6-35); Albumin Level 3.9 g/dL (3.5-5.1); Alkaline Phosphatase 657 U/L (38-126); Anion Gap 11 mmol/L (8-16); Aspartate Amino Transferase 91 U/L (14-36); Bilirubin,Total 1.3 mg/dL (0.2-1.3); Blood Urea Nitrogen 31 mg/dL (7-17); Calcium 8.5 mg/dL (8.4-10.2); Carbon Dioxide 32 mmol/L (22-30); Chloride 92 mmol/L (98-107); Estimated CRCL calculation 12 ml/min; Estimated Glomerular Filt Rate 8; Glucose 103 mg/dL (65-110); Magnesium 1.9 mg/dL (1.6-2.3); Phosphorus 1.8 mg/dL (2.5-4.5); Potassium 3.8 mmol/L (3.4-5.0); Sodium 135 mmol/L (137-145)
[2023-03-18 08:03] LABS: Partial Thromboplastin Time 66.9 SECONDS (22.3-36.8)
[2023-03-18] MEDS: HYDROcodone/acetaminophen (*CRX) 5-325 MG TABLET 1 TAB PO (08:53)
--- NOTE | 2023-03-18 10:32 | PM.PNNEP ---
Progress Note: A&P Assessment and Plan (1) Renal failure: Code(s): N19 - Unspecified kidney failure Status: Acute Assessment and Plan: the patient has renal failure. It is unclear if this is acute or chronic. renal sonogram shows mild atrophy on the left. ESR greater than 140. Complements are normal so far Serology and immunofixation are pending UA shows red color with lots of protein. Visually the urine looks muddy brown Urine protein is greater than 9g/gCr urine electrolytes are non pre renal She was here in 2019 and her creatinine was normal. Still determining whether this is acute or chronic renal failure. The muddy brown urine makes 1 consider an acute process. She had a biopsy yesterday. This will help us with this issue. She is getting dialysis now and will continue 3 times a week. (2) Volume overload: Code(s): E87.70 - Fluid overload, unspecified Status: Acute Assessment and Plan: The patient has lots of swelling. It has improved with dialysis. Venous Dopplers do show a DVT on the left but not on the right. she is getting anticoagulants for this. Continue to remove fluid. (3) Schizophrenia: Code(s): F20.9 - Schizophrenia, unspecified Status: Acute Assessment and Plan: Will try to get a list of her home medications from the hospital (4) Hypotension: Code(s): I95.9 - Hypotension, unspecified Status: Acute Assessment and Plan: blood pressure is improved. One hundred twenty-nine right now! Echo does not show much. Not much protein in the urine. CT shows the retroperitoneal involvement of likely metastatic cancer. She is on midodrine. Albumin to help fluid removal (5) Mental status alteration: Code(s): R41.82 - Altered mental status, unspecified Status: Acute Assessment and Plan: No recurrence (6) Erythropoietin deficiency anemia: Code(s): D63.1 - Anemia in chronic kidney disease Status: Acute Assessment and Plan: She finished her iron and continues the Epogen. (7) Renal osteodystrophy: Code(s): N25.0 - Renal osteodystrophy Status: Acute Assessment and Plan: Phosphorus level is low still. She is off the calcium acetate. Subjective Date/time seen: 03/18/23 10:32 Interval history: Patient is awake. Patient is on dialysis and tolerating it well. Her blood pressure is okay. We are removing about 3500cc. She was seen at 10:15 a.m. The patient had her kidney biopsy yesterday. The procedure went well she says. This is pending. Exam Narrative: WDWN in NAD skin no rash or subQ nodules head ncat lungs clear bilaterally cor reg no rub or gallop abd BS+ nontender and soft ext 1-2+ bilateral lower extremity edema. Objective Data Vital Signs Vital Signs: Vital Signs - 24 hr 03/17/23 13:15 03/17/23 12:00 03/17/23 16:00 Temperature 97.6 F Pulse Rate 99 95 99 Respiratory Rate 20 Blood Pressure 118/66 Pulse Oximetry 96 Oxygen Delivery 03/17/23 16:00 03/17/23 19:32 03/17/23 19:52 Temperature 97.6 F 97.6 F Pulse Rate 102 H 66 Respiratory Rate 20 16 Blood Pressure 120/71 132/69 151/43 H Pulse Oximetry 95 98 Oxygen Delivery 03/17/23 19:59 03/17/23 20:00 03/17/23 23:41 Temperature 97.7 F 98.7 F Pulse Rate 104 H 97 Respiratory Rate 16 16 Blood Pressure 133/74 154/66 H Pulse Oximetry 92 96 Oxygen Delivery Room Air 03/17/23 20:00 03/18/23 00:00 03/18/23 04:00 Temperature 98.3 F Pulse Rate 102 H 95 99 Respiratory Rate 16 Blood Pressure 129/71 Pulse Oximetry 93 Oxygen Delivery 03/18/23 04:00 Temperature Pulse Rate 93 Respiratory Rate Blood Pressure Pulse Oximetry Oxygen Delivery Intake/Output Intake/Output: Intake & Output 03/15/23 03/16/23 03/17/23 03/18/23 23:59 23:59 23:59 23:59 Intake Total 770 2122 750 520 Output Total 1431
--- NOTE | 2023-03-18 10:59 | PM.DS ---
DS: Admitting Diagnosis Discharge Date 03/18/23 Admitting Diagnosis end stage renal disease DS: Discharge Diagnosis Discharge Diagnosis (1) ESRD (end stage renal disease) on dialysis: Code(s): N18.6 - End stage renal disease; Z99.2 - Dependence on renal dialysis Status: Acute Assessment and Plan: Patient with a history of end-stage renal disease on hemodialysis and psychotic illness schizophrenia patient is poor historian unable to provide detailed review of symptoms or history, patient complains shortness of breath and generalized edema as patient has not received dialysis since she left [place] 3-4 days ago, upon arrival patient BUN is 54 and creatinine 5.6 nephrology consulted. Etiology of ESRD is unclear Intermittently Lasix as blood pressure allows Patient has temporary dialysis catheter. Care coordination working to get patient set up with an appropriate living situation and dialysis as an outpatient. (2) Volume overload: Code(s): E87.70 - Fluid overload, unspecified Status: Acute Assessment and Plan: Likely due to her compilation of chronic problems such as end-stage renal disease, diastolic heart failure, etc. Intermittent diuresis as blood pressure allows. Daily weight Monitor serum electrolytes. (3) Hypotension: Code(s): I95.9 - Hypotension, unspecified Status: Acute Assessment and Plan: 03/11/2023: Overnight had an unresponsive episode. Hypotensive during that period. Will start midodrine q.8 hour. continue to monitor pressures. (4) Metastatic cancer: Code(s): C79.9 - Secondary malignant neoplasm of unspecified site Status: Suspected Assessment and Plan: patient was found to have what appeared to be metastatic disease present on her liver during a renal ultrasound. CT abdomen pelvis suspicious for endometrial cancer. Pelvis ultrasound with thickened endometrial complex suspicious for endometrial carcinoma. AIR MARSHAL consulted. Endometrial biopsy performed on 03/15/23. Pathology results to be followed up with customer quality specialist (5) DVT of leg (deep venous thrombosis): Code(s): I82.409 - Acute embolism and thrombosis of unspecified deep veins of unspecified lower extremity Status: Acute Assessment and Plan: She also reports history of DVT diagnosed 4 to 6 ago weeks ago. Bilateral lower extremity ultrasound positive for DVT in the left lower extremity. patient was started on Eliquis at the time but then transition to heparin while in the hospital and case of a Surgery resume Eliquis once discharged. (6) Erythropoietin deficiency anemia: Code(s): D63.1 - Anemia in chronic kidney disease Status: Acute Assessment and Plan: She has anemia. H&H slightly downtrending. No obvious blood in stool. FOBT did come back positive. Added on Protonix. GI consulted. Patient refused to have colonoscopy performed during this hospitalization. GI encouraged her to follow-up in their office if she changes her mind and they signed off on this patient. Continue to monitor H&H. (7) Schizophrenia: Code(s): F20.9 - Schizophrenia, unspecified Status: Acute Assessment and Plan: so far have not been able to get hold of patient's home medication list. DS: Summary Hospital Course Hospital Course: This is a 67-year-old female with a past medical history of recent diagnosis of DVT 4-6 weeks prior to ED presentation and schizophrenia the presented to the ED on 03/10/2023 due to weakness and renal failure. Is unclear if patient renal disease is acute or chronic. She recently [facility] where they found a DVT and placed a temporary catheter and she underwent dialysis there. When she traveled back to [place] she went 3-4 days without having dialysis and upon presentation her BUN and creatinine were 54/ 5.6. Her lower extremities extremely edematous. Nephrology consulted. Etiology of end-stage renal
[2023-03-18] MEDS: ALBUTEROL SULFATE (*SP) AEROSOL 1 PUFF 2 PUFF INHALATION (12:18)
[2023-03-18] MEDS: EPOETIN ALFA 10,000 UNITS/ML VIAL 10000 UNITS IV PUSH (12:30)
[2023-03-18] MEDS: polyethylene glycoL 3350 17 GM POWD.PACK PO (13:49)
[2023-03-18] MEDS: MIDODRINE HCL 10 MG TABLET PO (13:49)
[2023-03-18] MEDS: PANTOPRAZOLE SODIUM IV 40 MG VIAL IV PUSH (13:49)
[2023-03-18] MEDS: LIDOCAINE 5% PATCH 1 PATCH TRANSDERM (13:49)
[2023-03-18] MEDS: TOLNAFTATE 1% POWDER 45 GM BTL 1 APPLIC TOPICAL (13:51)
== END 2023-03-18 17:24 | DRG 987 ==
LOC: ANHED 06:55 → ANH2MED 10:16
PROVIDERS: Family Medicine; Internal Medicine; Internal Medicine Nephrology; Obstetrics & Gynecology; Admitting Provider Student in an Organized Health Care Education/Training Program; Emergency Provider Emergency Medicine; PCP Family Medicine; Visit Provider Internal Medicine Critical Care Medicine
DX: E87.79 Other fluid overload (principal); N18.6 End stage renal disease; I50.32 Chronic diastolic (congestive) heart failure; I13.0 Hypertensive heart and chronic kidney disease with heart failure and stage 1 through stage 4 chronic kidney disease, or unspecified chronic kidney disease; N17.9 Acute kidney failure, unspecified; Z68.42 Body mass index [BMI] 45.0-49.9, adult; D62 Acute posthemorrhagic anemia; N13.30 Unspecified hydronephrosis; I82.412 Acute embolism and thrombosis of left femoral vein; I82.432 Acute embolism and thrombosis of left popliteal vein; I82.492 Acute embolism and thrombosis of other specified deep vein of left lower extremity; Z91.158 Patient's noncompliance with renal dialysis for other reason; D63.1 Anemia in chronic kidney disease; F41.9 Anxiety disorder, unspecified; F20.9 Schizophrenia, unspecified; E66.01 Morbid (severe) obesity due to excess calories; Z99.2 Dependence on renal dialysis; E86.0 Dehydration; N25.0 Renal osteodystrophy; E87.1 Hypo-osmolality and hyponatremia; R93.5 Abnormal findings on diagnostic imaging of other abdominal regions, including retroperitoneum; I95.9 Hypotension, unspecified
CPT/HCPCS: 36415; 50200; 70450; 71045; 71250; 74176; 76775; 76856; 77012; 80053; 80069; 80074; 81001; 81050; 82274; 82306; 82533; 82550; 82570; 82728; 83540; 83550; 83615; 83735; 83880; 83883; 84100; 84156; 84300; 84436; 84439; 84443; 84480; 85025; 85027; 85046; 85610; 85652; 85730; 86038; 86160; 86162; 86304; 86334; 86335; 86704; 86706; 87040; 87340; 87493; 88300; 88305; 88313; 88329; 88342; 88346; 88348; 88350; 93005; 93970; 94640; 96374; 96375; 97110; 97161; 97165; 97530; 97535; 99285; A9270; C8929; C9113; G0257; G0378; J1644; J1756; J1940; J2405; J2543; J7030; P9047; Q4081; Q5105; Q9957

== ENCOUNTER 2023-03-20 14:05 | Inpatient (IN) | payer MEDICARE, SELFPAY ==
[2023-03-20] VITALS (35 sets, daily range): BP systolic 106–182; BP diastolic 53–135; PULSE 97–110; RESP 14–21; TEMP 36–36.2; O2SAT 88–97; BMI 50.2
--- NOTE | ~2023-03-20 | US_ITS ---
US renal BI 03/21/2023 15:44 Procedure: Realtime transabdominal ultrasound of the kidneys and bladder. Indication: Hydronephrosis. Comparison: CT dated 03/20/2023 Findings: Renal echotexture is diffusely heterogeneous with multiple ill-defined hypoechoic masses th roughout the liver. There is mild bilateral hydronephrosis. No solid renal masses. The right kidney m easures 9.3 cm and left kidney measures 9.1 cm. There is a Smith catheter in the bladder which is dec ompressed. There is ascites. Impression: 1: Multiple ill-defined hypoechoic masses of the liver, not appreciated on noncontrast CT dated 2022. Findings suspicious for metastatic disease. Recommend correlation with CT or MRI without and wi th contrast. 2: Mild bilateral hydronephrosis. 3: Ascites. Reviewed, dictated and finalized at location A. Impression: 1: Multiple ill-defined hypoechoic masses of the liver, not appreciated on nonc ontrast CT dated 03/20/2023. Findings suspicious for metastatic disease. Recomme nd correlation with CT or MRI without and with contrast. 2: Mild bilateral hydronephrosis. 3: Ascites.
--- NOTE | ~2023-03-20 | XR_ITS ---
EXAMINATION: XR fluoroscopy no charge DATE: 03/28/2023 15:00 CDT INDICATION: BILAT FLANK PAIN . TECHNIQUE: 3 fluoroscopic images of the abdomen and pelvis were obtained during fluoroscopy performed by the surgeon. I was not present in the operating room. Fluoroscopy exposure time was 4.9 seconds. Air Kerma 2.21 mGy. DAP [id number] mGym2. COMPARISON: CT abdomen pelvis 03/27/2023 FINDINGS: Degenerative change in the spine. Normal partially visualized bowel gas pattern. No radiopaque foreig n body. IMPRESSION: Imaging documentation of fluoroscopy. Please refer to the operative note for complete procedural deta ils . Reviewed, dictated and finalized at location K. IMPRESSION: Imaging documentation of fluoroscopy. Please refer to the operative note for co mplete procedural details .
--- NOTE | ~2023-03-20 | CT_ITS ---
EXAMINATION: CT abdomen pelvis wo con DATE: 03/27/2023 18:04 INDICATION: hematuria, clots TECHNIQUE: Computed tomography (CT) of the abdomen and pelvis was performed without intravenous contr ast. Automated exposure control and iterative reconstruction technique were employed. The dose-length product was 1662.27 mGy-cm. COMPARISON: None. FINDINGS: Lower thorax: Bibasilar atelectasis. Moderate left and small right pleural effusions. Enlarged subphr enic lymph nodes. Liver: Hepatomegaly and cirrhotic changes. Biliary/Gallbladder: Cholelithiasis. No bile duct dilation. Pancreas: Severe pancreatic atrophy. Spleen: Granulomatous calcifications Adrenals:No mass. Kidneys: Bilateral atrophy, greater on the left, left upper pole scar, mild bilateral hydronephrosis. GI tract: No small or large bowel dilation. Normal appendix. Mesentery/Peritoneum: Perihepatic, mesenteric, and left lateral conal fascia and paracolic gutter flu id. Retroperitoneum: No mass. Atherosclerotic abdominal aortic and/or arterial calcifications. Large jay toneal lymphadenopathy. Pelvis: Enlarged lobulated appearing uterus. Urinary bladder decompressed by a Smith catheter but prashant ears to contain hyperdense material. Pelvic lymphadenopathy. Soft Tissues: Severe subcutaneous edema in the trunk. Bilateral inguinal lymphadenopathy. Bones: No acute osseous finding. IMPRESSION: The bladder is decompressed by a Smith catheter and therefore is poorly evaluated. Hyperdense intralu kamini material may represent blood/clot as noted in the given history. Moderate left and small right pleural effusions. Cirrhosis. Portal gallbladder. Mild bilateral hydron ephrosis. Moderate ascites. Retroperitoneal, pelvic, and subphrenic lymphadenopathy. Grossly stable l arge pelvic mass likely representing an abnormal uterus. Reviewed, dictated and finalized at location K. IMPRESSION: The bladder is decompressed by a Smith catheter and therefore is poorly evaluat ed. Hyperdense intraluminal material may represent blood/clot as noted in the g iven history. Moderate left and small right pleural effusions. Cirrhosis. Portal gallbladder. Mild bilateral hydronephrosis. Moderate ascites. Retroperitoneal, pelvic, and subphrenic lymphadenopathy. Grossly stable large pelvic mass likely representin g an abnormal uterus.
--- NOTE | ~2023-03-20 | US_ITS ---
US arterial ankle brachial ind INDICATION: Discoloration of the lower extremities TECHNIQUE: Segmental pressures and plethysmographic and Doppler waveforms of the brachial and lower e xtremity arteries were obtained. COMPARISON: None. FINDINGS: Right and left brachial artery pressures of 86 mm Hg and 84 mm Hg, respectively, are concordant (norm al difference <= 30 mmHg). The right ankle-brachial index (MARIELA) is 1.14 (normal >= 0.9-1.0). The right great toe-brachial index (TBI) is 0.4 (normal >= 0.60). The left MARIELA is 1.97. The left TBI is 0.4. IMPRESSION: 1. Normal bilateral ankle-brachial indices. 2: Diminished bilateral toe brachial indices consistent with mild peripheral arterial disease. Reviewed, dictated and finalized at location A. IMPRESSION: 1. Normal bilateral ankle-brachial indices. 2: Diminished bilateral toe brachial indices consistent with mild peripheral a rterial disease.
--- NOTE | ~2023-03-20 | CT_ITS ---
EXAMINATION: CT abdomen pelvis wo con DATE: 03/20/2023 15:56 INDICATION: Abdominal pain TECHNIQUE: Computed tomography (CT) of the abdomen and pelvis was performed without intravenous contr ast. Automated exposure control and iterative reconstruction technique were employed. The dose-length product was 1635.07 mGy-cm. COMPARISON: 03/11/2023 FINDINGS: Bilateral small posteriorly layering pleural effusions with associated compressive atelectasis in the dependent lower lobes. Heart size is normal. Atherosclerotic coronary artery calcifications. Enlarge ment of the central pulmonary arteries consistent with pulmonary arterial hypertension. Small amount of ascites scattered throughout the abdomen and pelvis. Partially calcified gallstone within the norm al sized gallbladder which demonstrates diffuse mural calcification (porcelain gallbladder). No peric holecystic inflammatory stranding to suggest acute cholecystitis. Multiple splenic calcific lesions c onsistent with old granulomatous disease. Pancreas and bilateral adrenal glands are normal. Again see n is mild bilateral hydronephrosis. There is asymmetric cortical atrophy at the upper pole of the lef t kidney. There is also asymmetric left perinephric stranding and crescentic soft tissue density in t he left pararenal space predominantly anteriorly. Again seen is extensive retroperitoneal lymphadenop athy beginning caudally along the bilateral external iliac chains and extending cephalad with multipl e enlarged aortocaval and left periaortic lymph nodes. There are also a few mildly enlarged bilateral anterior subphrenic lymph nodes. No bowel obstruction. Normal appendix. Lobular margins to the enlar ged uterus. Bladder wall thickening further exaggerated by decompressed state. No free intraperineal gas. Subcutaneous edema about the flanks and more prominently at the pelvis and proximal thighs. Rabia re lumbar spondylosis. IMPRESSION: 1. Retroperitoneal, subphrenic and pelvic lymphadenopathy suspicious for either lymphoma or metastati c disease. 2. Small bilateral pleural effusions and small amount of ascites. 3. Unchanged mild bilateral hydronephrosis. 4. unchanged asymmetric nonspecific left perirenal stranding and thickened tissue in the left pararen al space which is of indeterminate etiology or significance. 5. Enlarged uterus with lobular contours which could be due to uterine fibroids however ultrasound re portedly demonstrated thickening of the endometrial complex which raises concern for endometrial carc inoma. 6. Thickened bladder wall during part to partially decompressed state but with differential including cystitis either acute or chronic. 7. 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 Reviewed, dictated and finalized at location A. IMPRESSION: 1. Retroperitoneal, subphrenic and pelvic lymphadenopathy suspicious for either lymphoma or metastatic disease. 2. Small bilateral pleural effusions and small amount of ascites. 3. Unchanged mild bilateral hydronephrosis. 4. unchanged asymmetric nonspecific left perirenal stranding and thickened tiss ue in the left pararenal space which is of indeterminate etiology or significan ce. 5. Enlarged uterus with lobular contours which could be due to uterine fibroids however ultrasound reportedly demonstrated thickening of the endometrial compl ex which raises concern for endometrial carcinoma. 6. Thickened bladder wall during part to partially decompressed state but with differential including cystitis either acute or chronic. 7. Cholelithiasis and diffuse gallbladder wall calcification (porcelain gallbla dder).
[2023-03-20 14:35] LABS: Appearance Urine Cloudy (Clear); Bilirubin Urine 2+ (Negative); Blood Urine 3+ (Negative); Color Urine Red (Yellow); Glucose Urine UA Trace mg/dL (Negative); Ketones Urine Trace mg/dL (Negative); Leukocyte Esterase Ur 1+ LEU/UL (Negative); Nitrate Urine Negative (Negative); Protein Urine 3+ mg/dL (Negative); Urobilinogen Urine 0.2 mg/dL (<2.0); pH Urine 8.5 (5.0-9.0)
[2023-03-20 14:45] LABS: Bacteria Urine 3+ /hpf; Need Manual Microscopic Reviewed; Non Pathogenic Casts 0-2; RBC Urine >100 /hpf (0-2); Squamous Epithelial Cell Urine None seen /hpf (Few); WBC Urine >100 /hpf
[2023-03-20 14:47] LABS: Add Urine Microscopic? YES
[2023-03-20] MEDS: MORPHINE SULFATE INJ (*CRX) 10 MG/ML AMP 4 MG IM (15:38)
[2023-03-20] MEDS: Please add drug allergy info to patient profile. 1 EACH XX (15:39)
[2023-03-20 15:41] LABS: Hematocrit 29.5 % (37.0-47.0); Hemoglobin 8.8 g/dL (12.0-15.0); Mean Corpuscular HGB Conc 29.8 g/dl (32-36); Mean Corpuscular Hemoglobin 28.7 pg (26-34); Mean Corpuscular Volume 96.1 fl (80-100); Mean Platelet Volume 9.6 fl (7.4-10.4); Platelet Count Result 302 k/mm3 (150-375); Red Blood Count 3.07 M/mm3 (4.2-5.4); Red Cell Distribution Width 34.2 % (11.5-14.5); White Blood Count 19.7 K/mm3 (4.5-10.0)
[2023-03-20 15:51] LABS: Alanine Aminotransferase 19 U/L (6-35); Albumin Level 3.7 g/dL (3.5-5.1); Alkaline Phosphatase 954 U/L (38-126); Anion Gap 14 mmol/L (8-16); Aspartate Amino Transferase 134 U/L (14-36); Bilirubin,Total 1.3 mg/dL (0.2-1.3); Blood Urea Nitrogen 35 mg/dL (7-17); Calcium 8.4 mg/dL (8.4-10.2); Carbon Dioxide 30 mmol/L (22-30); Chloride 90 mmol/L (98-107); Estimated CRCL calculation 15 ml/min; Estimated Glomerular Filt Rate 10; Glucose 97 mg/dL (65-110); Potassium 4.2 mmol/L (3.4-5.0); Sodium 134 mmol/L (137-145)
[2023-03-20 16:00] LABS: Band Neutrophils Percent 2 % (0-6); Eosinophils Absolute Manual 0.19 K/mm3 (0.02-0.5); Eosinophils Percent Manual 1 % (0-4); Lymphocytes Absolute Manual 2.16 K/mm3 (1.1-4.5); Monocytes Absolute Manual 1.18 K/mm3 (0.1-0.90); Monocytes Percent Manual 6 % (3-9); Neutrophils Absolute Manual 16.15 K/mm3 (1.7-7.2); Neutrophils Percent Manual 80 % (46-73); Total Cells Counted 100
[2023-03-20 16:01] LABS: Platelet Estimate Adequate (Adequate); Schistocytes None Seen (NORMAL)
[2023-03-20 16:02] LABS: Hypochromasia 1+ (NORMAL)
[2023-03-20 16:03] LABS: Anisocytosis 3+ (NORMAL)
[2023-03-20 16:04] LABS: Polychromasia 1+ (NORMAL)
--- NOTE | 2023-03-20 16:10 | ED.FEMALEGU ---
HPI - Female Genitourinary General Chief complaint: Urogenital-Female Stated complaint: hematuria Time Seen by Provider: 03/20/23 15:14 History of Present Illness HPI Narrative: Pt presents with complaints of suprapubic abdominal pain. Pt was recently admitted to hospital for 10 days and just discharged. Pt has ESRD, thickened endometrium with biopsy pending. Pt says morphine works for her pain but tramadol she is on is not working. Pt just came up from [place] but says she is from this area. Related Data Allergies Allergy/AdvReac Type Severity Reaction Status Date / Time povidone-iodine Allergy Intermediate Rash Verified 03/20/23 15:36 [From Betadine] ether Allergy Vomiting Verified 03/20/23 15:36 iohexol Allergy Anaphylaxis Verified 03/20/23 15:35 [From contrast - CT, X-RAY] Review of Systems Review of Systems: All systems reviewed & are unremarkable except as noted in HPI and below Exam Const: General: healthy appearing Nutritional Appearance: well nourished Orientation/consciousness: patient oriented x3 Limitations: behavioral limitations HENMT: Head: normal to inspection Eyes: EOM: EOMs intact bilaterally Chest: Chest palpation & inspection: normal inspection of the chest Resp: Effort & Inspection: normal respiratory effort Auscultation: clear to auscultation bilaterally Cardio: Rate: regular rate Rhythm: regular rhythm GI: GI Palp: Yes Soft to palpation and Yes Tenderness to palpation present (GI) (suprapubic) Auscultation: normal bowel sounds Skin: General skin exam: normal color Rashes: no rashes Neuro: General: patient oriented x3, moves all extremities, no meningeal signs, no focal motor deficits and CN's II-XI intact bilaterally Cranial nerves: Yes Nystagmus not present Speech: normal speech Extrem: General: normal to inspection and no clubbing, cyanosis or edema Psych: Appearance: grossly normal Mental Status: mental status grossly normal Affect: normal affect Attitude: cooperative Course Vital Signs Vital signs: Vital Signs Temperature 97.2 F L 03/20/23 14:06 Pulse Rate 103 H 03/20/23 14:06 Respiratory Rate 18 03/20/23 14:06 Blood Pressure 140/88 03/20/23 14:06 Pulse Oximetry 93 03/20/23 14:06 Oxygen Delivery Room Air 03/20/23 14:06 Temperature 97.2 F L 03/20/23 14:06 Pulse Rate 106 H 03/20/23 19:37 Respiratory Rate 16 03/20/23 19:37 Blood Pressure 117/62 03/20/23 19:37 Pulse Oximetry 92 03/20/23 19:37 Oxygen Delivery Room Air 03/20/23 14:06 MDM - Female Genitourinary MDM Narrative Medical decision making narrative: pt has elevated wbc and renal insufficiency on labs (similar to prior) pt has UTI. given antibiotics. discussed with Baylee Pena and agrees to admit Lab Data 03/20/23 15:37 03/20/23 15:37 Labs: Lab Results 03/20/23 03/20/23 Range/Units 14:19 15:37 WBC 19.7 H (4.5-10.0) K/mm3 RBC 3.07 L (4.2-5.4) M/mm3 Hgb 8.8 L (12.0-15.0) g/dL Hct 29.5 L (37.0-47.0) % MCV 96.1 (80-100) fl MCH 28.7 (26-34) pg MCHC 29.8 L (32-36) g/dl RDW 34.2 H (11.5-14.5) % Plt Count 302 (150-375) k/mm3 MPV 9.6 (7.4-10.4) fl Immature Gran % (Auto) Not Reportable Neut % (Auto) Not Reportable Lymph % (Auto) Not Reportable Mcmullen % (Auto) Not Reportable Eos % (Auto) Not Reportable Baso % (Auto) Not Reportable Lymph # (Auto) Not Reportable Mcmullen # (Auto) Not Reportable Eos # (Auto) Not Reportable Baso # (Auto) Not Reportable Abs Immat Gran (auto) Not Reportable Absolute Neuts (auto) Not Reportable Absolute Nucleated RBC Not Reportable Total Counted 100 Neutrophils % (Manual) 80 H (46-73) % Band Neutrophils % 2 (0-6) % Lymphocytes % (Manual) 11.0 L (18-44) % Monocytes % (Manual) 6 (3-9) % Eosinophils % (Manual) 1 (0-4) % Nucleated RBC % Not Reportable Abs Neuts (Manual) 16.15 H (1.7-7
--- NOTE | 2023-03-20 17:22 | PM.IMHP ---
H&P: HPI History of Present Illness Date/Time: 03/20/23 17:45 Chief Complaint: Hematuria. Narrative: This is a 67-year-old female who presented to the emergency department via EMS from [facility] for evaluation of hematuria. The patient is known to the hospitalist service from a recent admission and in fact she was discharged from this facility yesterday. She is originally from this area and spent the last several months in [place] and just prior to her return she reports being admitted at a hospital in [place] for acute kidney failure requiring temporary dialysis. Her ex- drove her back to the area several weeks ago and brought her to the hospital due to severe volume overload. She was found to have a left lower extremity DVT and was started on Eliquis. Endometrial biopsy was performed due to abnormal findings noted on CT and unfortunately the sample was not diagnostic. Dialysis catheter was inserted and she had a renal biopsy which showed evidence of acute tubular injury. Dialysis was initiated and she was discharged to [facility] yesterday after. She was discharged with a Smith catheter which was removed this morning and since that time she reports difficulties urinating and severe pain in her bladder with bloody urine containing clots. She was afebrile on arrival to the ED. Urine was grossly bloody and three-way Smith catheter has been inserted for CBI. She complains of dysuria and pain in the suprapubic region. She denies fever, chills, sweats, nausea, vomiting, and diarrhea. Review of Systems Review of Systems: Twelve systems were reviewed and are negative except for as per HPI. [facility] Past Medical History Medical History (Updated 03/21/23 @ 15:10 by Baylee Weinstein PA-C) Abnormal endometrial ultrasound Endometrial biopsy nondiagnostic in February 2023. Acute kidney injury Renal biopsy in February 2023 showed acute tubular injury. Anxiety Deep vein thrombosis of left lower extremity (02/2023) Morbid obesity Porcelain gallbladder Psychosis Schizophrenia Surgical History Surgical History (Updated 03/21/23 @ 15:10 by Baylee Weinstein PA-C) History of arthroscopy of left knee History of tonsillectomy Family History Family History Mother Cerebrovascular accident Sibling Hepatitis C Father Acute myocardial infarction Social History Social History (Updated 03/21/23 @ 15:11 by Baylee Weinstein PA-C) Social History: Surrogate medical decision maker: Hector Mora, ex-. Code status: Full code. Smoking status: Never smoker Second hand tobacco smoke exposure: No Alcohol intake: never Alcohol use details: 1.5 glass of wine per day. Substance use: never Substance use type: other Other substance usage details: CBD Lack of Transportation: No Lack of Food: Never True Current Housing: I Have Housing Concerned About Future Housing: No Difficulty Paying Gas/Electric Bills: No Difficulty Paying for Meds: No Currently Unemployed: No Education: Grade School Difficulty w/ Childcare or Family Care: No Additional living arrangements comments: Lives in [place]. Additional occupation/education comments: PhD in nursing. Spiritual care concerns: No Meds Home Medications and Allergies Home Medications Medication Instructions Recorded Confirmed Type Eliquis 5 mg PO BID 03/11/23 03/21/23 History calcium acetate 667 mg PO TID 03/11/23 03/21/23 History albuterol sulfate 90 mcg/actuation 2 puff inhalation Q6HRT PRN 03/18/23 03/21/23 Rx aerosol inhaler (Proventil HFA) Shortness Of Breath #1 g docusate sodium 100 mg capsule 100 mg PO Q12HR #60 caps 03/18/23 03/21/23 Rx furosemide 80 mg tablet 80 mg PO BID #30 tabs 03/18/23 03/21/23 Rx levothyroxine 50 mcg tablet 50 mcg PO DAILY@0630 #30 tabs 03/18/23 03/21/23 Rx (Synthroid) midodrine 10 mg tablet 10 mg PO TID #60 tabs 03/18/23 03/21/23 Rx pantopr
[2023-03-20] MEDS: MORPHINE SULFATE (*CRX) 4 MG/ML INJ IV PUSH (17:54)
--- NOTE | 2023-03-20 18:09 | PC.NURSE ---
Patient refusing to be turned and clean linens placed under patient. patient says I want to rest . Will attempt to clean patient up when patient ready.
[2023-03-21] VITALS (22 sets, daily range): BP systolic 92–181; BP diastolic 31–77; PULSE 70–120; RESP 12–20; TEMP 35.9–37.2; O2SAT 92–93
[2023-03-21] MEDS: HYDROcodone/acetaminophen (*CRX) 5-325 MG TABLET 1 TAB PO ×4 (00:56→21:02)
[2023-03-21] MEDS: MORPHINE SULFATE (*CRX) 4 MG/ML INJ IV PUSH ×2 (03:09→07:59)
--- NOTE | 2023-03-21 03:49 | ADMGEN ---
This patient, Flores Mora, was admitted to [facility] Surg Room 306-02. Patient/family oriented to hospital policies and general routines including ID bracelet, bed and alarms, visiting hours, pain management, procedures, bathroom and other care routines, personal items, smoking policy, room service/diet, and visiting hours. Information on how to activate the Rapid Response Team has been discussed. Patient/Family are encouraged to report perceived risks to care and to ask questions if they do not understand what they are told or what they should do.
[2023-03-21 06:02] LABS: Hematocrit 28.9 % (37.0-47.0); Hemoglobin 8.4 g/dL (12.0-15.0); Mean Corpuscular HGB Conc 29.1 g/dl (32-36); Mean Corpuscular Volume 96.3 fl (80-100); Mean Platelet Volume 9.7 fl (7.4-10.4); Platelet Count Result 302 k/mm3 (150-375); Red Cell Distribution Width 33.7 % (11.5-14.5)
[2023-03-21 06:08] LABS: Alanine Aminotransferase 19 U/L (6-35); Albumin Level 3.6 g/dL (3.5-5.1); Alkaline Phosphatase 1082 U/L (38-126); Anion Gap 12 mmol/L (8-16); Aspartate Amino Transferase 129 U/L (14-36); Bilirubin,Total 1.2 mg/dL (0.2-1.3); Blood Urea Nitrogen 36 mg/dL (7-17); Calcium 8.1 mg/dL (8.4-10.2); Carbon Dioxide 30 mmol/L (22-30); Chloride 91 mmol/L (98-107); Estimated CRCL calculation 12 ml/min; Estimated Glomerular Filt Rate 8; Glucose 96 mg/dL (65-110); Potassium 4.6 mmol/L (3.4-5.0); Sodium 133 mmol/L (137-145)
--- NOTE | 2023-03-21 10:30 | PCPTNOTE ---
Attempted PT evaluation, pt refused stating she was on bedrest. Pt educated that she was not on bedrest, but continued to refuse. Will follow.
--- NOTE | 2023-03-21 10:33 | PCOTNOTE ---
Pt. has adamantly refused therapy in the past, per nursing at this time, pt. unwilling to work with therapy. Following.
--- NOTE | 2023-03-21 12:12 | WPDURCON ---
Assessment and Plan Assessment and plan (1) Renal failure: Code(s): N19 - Unspecified kidney failure Status: Acute Assessment and Plan: No obstruction noted on CT scan, no need for surgical intervention. (2) Gross hematuria: Code(s): R31.0 - Gross hematuria Status: Acute Assessment and Plan: CBI off, urine is clear with cooley draining to gravity at the bedside. (3) Urinary tract infection: Code(s): N39.0 - Urinary tract infection, site not specified Status: Acute Assessment and Plan: Urine culture is pending, she remains on IV antibiotics, no urine culture was obtained at the last admission d/t starting antibiotics prior to obtaining one. She did have negative blood cultures from the last admission. (4) Metastatic cancer: Code(s): C79.9 - Secondary malignant neoplasm of unspecified site Status: Suspected Assessment and Plan: Unclear from what origin, but appears to be metastatic cancer from the endometrium of the uterus? Patient to see Oncology while here for further evaluation. The bladder and kidneys appear clear of masses or tumors. Gross hematuria appears to have been caused from anticoagulants versus infection? (5) Bilateral hydronephrosis: Code(s): N13.30 - Unspecified hydronephrosis Status: Acute Assessment and Plan: Keep cooley in for maximal drainage, pyelonephritis is noted on CT, no abscess, patient is afebrile, will continue antibiotics. Will repeat a REGGIE to see if any improvement in hydro since new cath was placed and clots were removed after CBI was started. The patient is not a candidate for a cystoscopy, d/t multiple co-morbidities at this time. If she should become more stable and ambulatory we could perform one in the office to further evaluate the gross hematuria. Keep cooley in place with monthly cath changes until she is well enough to f/u in the office for further testing. Failed voiding trail x 1. Urology Consult Note HPI Date Seen: 03/21/23 Time Seen: 09:55 Requesting Physician: Edouard Dimas MD Primary Care Provider: Magno PickardMD Consult Narrative Reason for consult: Pyelonephritis/UTI/Gross Hematuria Narrative: Flores Mora is a 67 year old female who presented to the ER via EMS yesterday from [facility] for evaluation of new onset of gross hematuria and urinary retention. She was previously hospitalized for 10 days for the same diagnosis including CKD. She had a cooley removal done prior to her discharge from the hospital but was unable to urinate, then developed gross hematuria and clots in her urine. SHe had [address] cooley placed with CBI started. A UA was obtained that is suggestive of a UTI, WBC is increased to 20 today up from 19.7 yesterday, creatinine is 5.50 which is neare her baseline. She had previous imaging and evaluation from Dr. Barker to rule out an obstruction that would cause her ELPIDIO/CKD. Her blood culture was negative from 03/15/23, a urine culture was not obtained at that time d/t starting antibiotics prior to one being obtained. A CT scan was repeated on 03/20/23 which shows no significant changes from the CT done on her previous admission but shows: 1. Retroperitoneal, subphrenic and pelvic lymphadenopathy suspicious for either lymphoma or metastatic disease. 2. Small bilateral pleural effusions and small amount of ascites. 3. Unchanged mild bilateral hydronephrosis. 4. unchanged asymmetric nonspecific left perirenal stranding and thickened tissue in the left pararenal space which is of indeterminate etiology or significance. 5. Enlarged uterus with lobular contours which could be due to uterine fibroids however ultrasound reportedly demonstrated thickening of the endometrial complex which raises concern for endometrial carcinoma. 6. Thickened bladder wall during part to partially decompressed state but with differential including cystitis either acute or chronic. 7. Choleli
[2023-03-21] MEDS: MORPHINE SULFATE (*CRX) 2 MG/ML INJ IV PUSH (14:07)
--- NOTE | 2023-03-21 14:25 | PM.IMPN ---
Progress Note: A&P Assessment and Plan (1) Gross hematuria: Code(s): R31.0 - Gross hematuria Status: Acute Assessment and Plan: The patient presented to the emergency department for evaluation of gross hematuria. Three-way Smith catheter will be inserted and she will be started on CBI. Urology has been consulted for their opinion. Recommended patient keep chronic Smith in place. H&H is stable. Continue to monitor. Per urology okay to restart Eliquis at this time. (2) Urinary tract infection: Code(s): N39.0 - Urinary tract infection, site not specified Status: Acute Assessment and Plan: Urine looks infected she has been started on ceftriaxone, pending urine culture. Adjust antibiotic therapy to culture results. Last UA also appeared infectious but culture came back negative. Would not be surprised if the same happened with this culture. Leukocytosis likely from patient receiving Procrit. (3) Renal failure: Code(s): N19 - Unspecified kidney failure Status: Acute Assessment and Plan: Patient receiving dialysis. Nephrology consulted. (4) Left leg DVT: Code(s): I82.402 - Acute embolism and thrombosis of unspecified deep veins of left lower extremity Status: Acute Assessment and Plan: Continue Eliquis. (5) Metastatic cancer: Code(s): C79.9 - Secondary malignant neoplasm of unspecified site Status: Suspected Assessment and Plan: CT of the abdomen and pelvis once again shows several abnormal findings including lymphadenopathy suspicious for either lymphoma or metastatic disease, enlarged uterus concerning for endometrial carcinoma, thickened bladder wall, and cholelithiasis and diffuse gallbladder wall calcification (porcelain gallbladder). Patient with inconclusive endometrial biopsy during her last stay. OBGYN recommended patient be seen by [facility] and that their office would set this up for the patient. Consulted Oncology Subjective Date/time seen: 03/21/23 14:25 Interval history: Patient resting in bed with no new complaints this time. She denies dizziness, lightheadedness, chest pain shortness a breath. She is not wanting to return to her fdc and have related this to the Care coordination Team. She has previously here for end-stage renal disease and treated with dialysis. Unsure if patient's renal failure is acute or chronic. She is set up with an outpatient dialysis center. Waiting for urine culture to return. Patient likely could be discharged once urine culture returns and she is appropriately treated for UTI. Exam Narrative: GENERAL: Comfortable, no acute distress, morbid obesity HENMT: moist mucous membranes EYES: EOM intact b/l NECK: no lymphadenopathy RESPIRATORY: clear to auscultation CARDIO: RRR GI: soft, nontender, bowel sounds present SKIN: no rashes EXTREMITIES: +4 pitting edema below the knee bilaterally, no redness or tenderness Objective Data Vital Signs Vital Signs: Vital Signs - 24 hr 03/20/23 14:31 03/20/23 14:45 03/20/23 14:46 Temperature Pulse Rate 101 H 100 99 Respiratory Rate 17 19 18 Blood Pressure 127/69 141/110 H Pulse Oximetry 94 89 L 90 Oxygen Delivery 03/20/23 15:00 03/20/23 15:01 03/20/23 15:15 Temperature Pulse Rate 98 100 101 H Respiratory Rate 19 18 18 Blood Pressure 150/97 H Pulse Oximetry 91 91 90 Oxygen Delivery 03/20/23 15:16 03/20/23 15:17 03/20/23 15:30 Temperature Pulse Rate 100 101 H 102 H Respiratory Rate 18 18 20 Blood Pressure 147/88 H Pulse Oximetry 91 91 93 Oxygen Delivery 03/20/23 15:33 03/20/23 15:57 03/20/23 15:58 Temperature Pulse Rate 102 H 100 99 Respiratory Rate 19 19 20 Blood Pressure 145/66 H 130/80 Pulse Oximetry 91 Oxygen Delivery 03/20/23 16:00 03/20/23 16:01 03/20/23 16:15 Temperature Pulse Rate 102 H 99 99 Respirat
[2023-03-21] MEDS: ALBUTEROL SULFATE (*SP) AEROSOL 1 PUFF 2 PUFF INHALATION (14:44)
--- NOTE | 2023-03-21 16:55 | PC.NURSE ---
1530 Liya MCKEON notified of pt on tele and has been sinus tach 114.
[2023-03-21] MEDS: EPOETIN ALFA 10,000 UNITS/ML VIAL 10000 UNITS IV PUSH (17:20)
--- NOTE | 2023-03-21 17:30 | PM.CNNEP ---
Assessment and Plan Assessment and plan (1) ELPIDIO (acute kidney injury): Code(s): N17.9 - Acute kidney failure, unspecified Status: Acute Assessment and Plan: apparently secondary to ATN RENAL BIOPSY: acute kidney injury with ~ 10% interstitial fibrosis and tubular atrophy what caused the ATN remains unclear however, theoretically, it is possible her renal function could recover still with rising BUN and creatinine between dialysis treatments in association with significant LE edema HD today and continue T/T/S outpatient dialysis schedule follow trend of labs and UOP for the potential renal recovery (2) Urinary tract infection: Code(s): N39.0 - Urinary tract infection, site not specified Status: Acute Assessment and Plan: admission UA suggestive follow culture results/data on antibiotics (3) Bilateral hydronephrosis: Code(s): N13.30 - Unspecified hydronephrosis Status: Acute Assessment and Plan: as noted by CT and ultrasound imaging cooley catheter in place (new catheter in place) Urology following (4) Gross hematuria: Code(s): R31.0 - Gross hematuria Status: Acute Assessment and Plan: secondary to cooley catheter, anticoagulation, and/or recent renal biopsy initiated on CBI on admission with improvement noted (currently off CBI) urine appears to be clear at this time Urology consultation/recommendations noted anticoagulation on hold (5) Metastatic cancer: Code(s): C79.9 - Secondary malignant neoplasm of unspecified site Status: Suspected Assessment and Plan: unclear on source but findings once again noted on imaging will likely need Oncology referral and definite tissue diagnosis I will continue to follow the patient with you while she remains hospitalized and make further recommendation as needed. Thank you for allowing me to participate in the care of this patient. History of Present Illness Reason for Consult Consult date: 03/21/23 Reason for consult: acute renal failure (dialysis dependent) Chief Complaint Chief complaint: UTI History of Present Illness Narrative: Most of the history that I have obtained is from review of the electronic medical record and discussion with the physician/nurses involved in the patient's care as somewhat difficult to get a full and complete history from the patient as she tends to jump from 1 topic to the next without elaborating on the specific questions that are asked. The patient is a 67-year-old female with a past medical history as outlined below who presented to [facility] Emergency room via EMS from her nursing facility for further evaluation of hematuria. It should be noted that the patient was just recently discharged from [facility] after being treated renal failure in association with volume overload. She responded well to aggressive fluid removal with dialysis and was eventually discharged to a nursing facility for ongoing PT/OT as well as outpatient dialysis. She is originally from this area but stent several months in [place] just prior to returning to this area. Prior to her return to this area, she was hospitalized in [place] for acute kidney failure requiring renal replacement therapy / dialysis. The specifics are not very clear but she eventually left from that area to return back to this area but her ex- dropped her off here at [facility] due to significant swelling/ edema / anasarca. Subsequent further workup and evaluation during that hospital stay demonstrated a left lower extremity DVT with initiation of anticoagulation as well as findings on imaging studies concerning for possible metastatic cancer/malignancy. As part of her evaluation of her kidney injury, she had a renal biopsy done but the results were pending by the time of her discharge. Following discharge from this hospital, she reports increasing difficul
--- NOTE | 2023-03-21 17:54 | PC.NURSE ---
Dr Dimas notified of e coli in urine resulted.
--- NOTE | 2023-03-21 17:57 | PDONCCN ---
HPI - Date of Consult Date/Time: 03/21/23 17:57 Requesting Physician: Edouard Dimas MD Primary Care Provider: Magno Pickard, - Consult Narrative Reason for consult: Concerns for metastatic endometrial cancer Narrative: Flores Mora is a 67 year old female whom I saw as inpatient for concerns of metastatic endometrial cancer. Patient was not interested in talking to me and asked for Dr. Kilgore and would like to have a follow up with him as outpatient. History is obtained from fellow physician's notes as well as review of the imaging and labs. 03/10/23-03/18/23 Patient was initially admitted 03/10/23-03/18/23 for acute renal failure. Her ex- drove her to this area from [place] on 03/10/23. Patient was treated with dialysis in [place] and had dialysis catheter when she presented on 03/10/23. She was found to be in renal failure with creatinine of 5.6 on 03/10/23. Nephrology was consulted and dialysis was initiated. On 03/11/23- CT chest/abd/pelvis W/O contrast was obtained which showed aortocaval, para-aortic, bilateral external iliac lymphadenopathy. 03/11/23- Pelvic ultrasound showed complex thickening in endometrium concerning for endometrial malignancy. 03/11/23- Bilateral LE ultrasound revealed Left greater saphenus vein thrombosis. 03/14/23- CA 125 is 183 03/15/23- Endometrial biopsy was performed but pathology was nondiagnostic 03/18/23- Gynecology recommendations were that patient see Dr. Clifton at [facility] as outpatient and patient was discharged 03/20/23-Present Patient presented to ER on 03/20/23 with suprapubic pain and creatinine was 5.5. Patient is admitted again for renal dysfunction. Oncology is consulted for further management of endometrial findings and abdominal lymphadenopathy. Review of Systems - Review of Systems unobtainable due to mental status PMFSH Medical History: Medical History (Last Updated 03/21/23 @ 15:10 by Baylee Weinstein PA-C) Abnormal endometrial ultrasound Endometrial biopsy nondiagnostic in February 2023. Acute kidney injury Renal biopsy in February 2023 showed acute tubular injury. Anxiety Deep vein thrombosis of left lower extremity Onset Date: 02/2023 Morbid obesity Porcelain gallbladder Psychosis Schizophrenia Surgical History: Surgical History (Last Updated 03/21/23 @ 15:10 by Baylee Weinstein PA-C) History of arthroscopy of left knee History of tonsillectomy Family History: Family History (Last Reviewed 03/21/23 @ 15:10 by Baylee Weinstein PA-C) Mother Cerebrovascular accident Sibling Hepatitis C Father Acute myocardial infarction - Social History Social History: Social History (Last Updated 03/21/23 @ 15:11 by Baylee Weinstein PA-C) Alcohol Use: Alcohol intake: never Alcohol use details: 1.5 glass of wine per day. Substance Use: Substance use: never Substance use type: other Other substance usage details: CBD Others: Spiritual care concerns: No Smoking Status: Smoking status: Never smoker Second hand tobacco smoke exposure: No Social Determinants of Health: Has the Lack of Transportation Kept You From Medical Appointments or From Getting Medications?: No Within the Past 12 Months, Were You Worried Whether Your Food Would Run Out Before You Got Money to Buy More?: Never True What is Your Housing Situation Today?: I Have Housing Are You Worried That in the Next 2 Months, You May Not Have Your Own Housing to Live In?: No Do You Have Trouble Paying Your Heating Or Electricity Bill?: No Do You Have Trouble Paying For Medicines?: No Are You Currently Unemployed and Looking for Work?: No Highest Level of Education Completed: Grade School Do You Have Trouble With Childcare or the Care of a Family Member?: No Exam - General Patient refused physical examination - Vital Signs Vital Signs - 24 hr 03/20/23 18:00 03/20/23 18:01 03/20/23 18:
[2023-03-21] MEDS: FUROSEMIDE 80 MG TABLET PO (20:59)
[2023-03-21] MEDS: APIXABAN 5 MG TABLET PO (20:59)
[2023-03-21] MEDS: MIDODRINE HCL 10 MG TABLET PO (21:00)
[2023-03-21] MEDS: DOCUSATE SODIUM 100 MG CAPSULE PO (21:00)
[2023-03-22] VITALS (10 sets, daily range): BP systolic 97–113; BP diastolic 49–61; PULSE 94–114; RESP 18; TEMP 35.7–36.7; O2SAT 90–95
[2023-03-22] MEDS: MORPHINE SULFATE (*CRX) 2 MG/ML INJ IV PUSH ×2 (00:25→07:02)
[2023-03-22 06:10] LABS: Basophils Absolute Auto 0.2 K/mm3 (0.0-0.1); Basophils Percent Auto 0.7 % (0.2-1.2); Eosinophils Absolute Auto 0.2 K/mm3 (0-0.3); Eosinophils Percent Auto 0.6 % (0-4.4); Hematocrit 28.8 % (37.0-47.0); Hemoglobin 8.2 g/dL (12.0-15.0); Immature Granulocyte Absolute 1.13 K/mm3 (0.00-0.031); Immature Granulocyte Percent A 4.9 % (0-0.5); Lymphocytes Absolute Auto 1.88 K/mm3 (0.9-3.2); Lymphocytes Percent Auto 8.1 % (18.3-44.2); Mean Corpuscular HGB Conc 28.5 g/dl (32-36); Mean Corpuscular Hemoglobin 28.4 pg (26-34); Mean Corpuscular Volume 99.7 fl (80-100); Mean Platelet Volume 9.8 fl (7.4-10.4); Monocytes Absolute Auto 1.3 K/mm3 (0.1-0.6); Monocytes Percent Auto 5.5 % (2.6-8.5); Neutrophils Absolute Auto 18.6 K/mm3 (1.3-6.7); Neutrophils Percent Auto 80.2 % (45.5-73.1); Nucleated Red Blood Cells Perc 0.2 % (0.0-0.2); Platelet Count Result 312 k/mm3 (150-375); Red Blood Count 2.89 M/mm3 (4.2-5.4); Red Cell Distribution Width 33.4 % (11.5-14.5); White Blood Count 23.2 K/mm3 (4.5-10.0)
[2023-03-22] MEDS: HYDROcodone/acetaminophen (*CRX) 5-325 MG TABLET 1 TAB PO ×4 (06:37→20:16)
[2023-03-22] MEDS: LEVOTHYROXINE SODIUM 50 MCG TABLET PO (06:37)
[2023-03-22 06:39] LABS: Alanine Aminotransferase 21 U/L (6-35); Albumin Level 3.6 g/dL (3.5-5.1); Alkaline Phosphatase 1086 U/L (38-126); Anion Gap 12 mmol/L (8-16); Aspartate Amino Transferase 137 U/L (14-36); Bilirubin,Total 1.3 mg/dL (0.2-1.3); Blood Urea Nitrogen 23 mg/dL (7-17); Calcium 8.2 mg/dL (8.4-10.2); Carbon Dioxide 27 mmol/L (22-30); Chloride 97 mmol/L (98-107); Estimated CRCL calculation 17 ml/min; Estimated Glomerular Filt Rate 11; Glucose 107 mg/dL (65-110); Potassium 4.3 mmol/L (3.4-5.0); Sodium 136 mmol/L (137-145)
[2023-03-22 07:11] LABS: Hypersegmented Neutrophils Present; Hypochromasia 1+ (NORMAL); Platelet Clumps Present; Platelet Estimate Adequate (Adequate)
[2023-03-22 07:12] LABS: Anisocytosis 2+ (NORMAL); Schistocytes None Seen (NORMAL); Stomatocytes 1+ (NORMAL); Target Cells 1+ (NORMAL)
--- NOTE | 2023-03-22 08:56 | PCOTNOTE ---
Attempted to see pt. for occupational therapy evaluation. Pt. currently increased emotional response and stated she would be willing to get out of bed at 1pm. Nursing aware. Following.
--- NOTE | 2023-03-22 08:59 | PCPTNOTE ---
attempted PT evaluation, pt refused. Will follow.
[2023-03-22] MEDS: PANTOPRAZOLE 40 MG TABLET PO (09:01)
[2023-03-22] MEDS: MIDODRINE HCL 10 MG TABLET PO ×3 (09:01→16:18)
[2023-03-22] MEDS: FUROSEMIDE 80 MG TABLET PO ×2 (09:01→16:16)
[2023-03-22] MEDS: APIXABAN 5 MG TABLET PO ×2 (09:03→16:16)
[2023-03-22] MEDS: DOCUSATE SODIUM 100 MG CAPSULE PO ×2 (09:03→20:15)
--- NOTE | 2023-03-22 12:00 | PM.IMPN ---
Progress Note: A&P Assessment and Plan (1) Gross hematuria: Code(s): R31.0 - Gross hematuria Status: Acute Assessment and Plan: Presented to the emergency department for evaluation of gross hematuria. Three-way Smith catheter inserted CBI DC'd per urology. Urology has been consulted for their opinion. Recommended patient keep chronic Smith in place.? H&H is stable at 8.2/28.8.? Per urology okay to restart Eliquis at this time. No further hematuria noted Trend labs (2) Urinary tract infection: Qualifiers: Urinary tract infection type: acute cystitis Hematuria presence: with hematuria Qualified Code(s): N30.01 - Acute cystitis with hematuria Code(s): N39.0 - Urinary tract infection, site not specified Status: Acute Assessment and Plan: Urine looks infected she has been started on ceftriaxone urine culture grew ECOLI Adjust antibiotic therapy to culture results.? Meropenem started Sensitivities show a very limited antibiotic choice Leukocytosis continues to rise currently at 23.2 (3) Renal failure: Qualifiers: Renal failure chronicity: unspecified chronicity Qualified Code(s): N19 - Unspecified kidney failure Code(s): N19 - Unspecified kidney failure Status: Acute Assessment and Plan: ESRD with HD 3 times weekly Currently BUN/Cr 23/3.90 Nephrology on board Continue dialysis per nephrology Trend urine output adjust therapy as indicated (4) Left leg DVT: Qualifiers: Affected thrombotic vein of extremity: unspecified lower extremity distal vein Chronicity: acute Qualified Code(s): I82.4Z2 - Acute embolism and thrombosis of unspecified deep veins of left distal lower extremity Code(s): I82.402 - Acute embolism and thrombosis of unspecified deep veins of left lower extremity Status: Acute Assessment and Plan: Currently on Eliquis Found last visit Legs still swollen Bleeding precautions (5) Chronic anticoagulation: Code(s): Z79.01 - MCFP (current) use of anticoagulants Status: Acute Assessment and Plan: Recently found DVT Continue Eliquis Time Spent With Patient Time: 48 minutes Time with patient: Greater than 35 minutes Subjective Date/time seen: 03/22/23 12:00 Interval history: Patient is 67-year-old female with past medical history of DVT who presented to the ED with complaints hematuria. Patient has several complaints including wanting the CBI turned back on generalized pain and anxiety. Patient seems to be very all over the place at this time. She does jump from 1 topic to the next. She is more concerned about where she is going to go in the end. Currently she is denying any chest pain shortness a breath, nausea, vomiting, diarrhea or constipation. She did complain of suprapubic pain stated that she feels is a clot there still. Will continue to trend urine output. Review of Systems Review of Systems: All systems reviewed & are unremarkable except as noted in HPI and below Objective Data Vital Signs Vital Signs: Vital Signs - 24 hr 03/21/23 16:00 03/21/23 18:43 03/21/23 17:00 Temperature 98.4 F Pulse Rate 114 H 120 H 70 Respiratory Rate 20 Blood Pressure 150/39 H 96/69 L Pulse Oximetry Oxygen Delivery 03/21/23 17:00 03/21/23 17:20 03/21/23 17:40 Temperature Pulse Rate 111 H 118 H 116 H Respiratory Rate Blood Pressure 117/64 117/55 L 124/77 Pulse Oximetry Oxygen Delivery 03/21/23 18:00 03/21/23 18:21 03/21/23 19:01 Temperature Pulse Rate 116 H 120 H 118 H Respiratory Rate Blood Pressure 181/70 H 104/50 L 105/53 L Pulse Oximetry Oxygen Delivery 03/21/23 19:21 03/21/23 19:41 03/21/23 20:00 Temperature Pulse Rate 114 H 117 H 117 H Respiratory Rate Blood Pressure 118/56 L 163/43 H Pulse Oximetry O
--- NOTE | 2023-03-22 12:00 | P.PNIM_ITS ---
Progress Note: A&P Assessment and Plan (1) Gross hematuria: Code(s): R31.0 - Gross hematuria Status: Acute Assessment and Plan: * Presented to the emergency department for evaluation of gross hematuria. * Three-way Smith catheter inserted * CBI DC'd per urology. * Urology has been consulted for their opinion. * Recommended patient keep chronic Smith in place.? * H&H is stable at 8.2/28.8.? * Per urology okay to restart Eliquis at this time. * No further hematuria noted * Trend labs (2) Urinary tract infection: Qualifiers: Urinary tract infection type: acute cystitis Hematuria presence: with hematuria Qualified Code(s): N30.01 - Acute cystitis with hematuria Code(s): N39.0 - Urinary tract infection, site not specified Status: Acute Assessment and Plan: * Urine looks infected she has been started on ceftriaxone * urine culture grew ECOLI * Adjust antibiotic therapy to culture results.? * Meropenem started * Sensitivities show a very limited antibiotic choice * Leukocytosis continues to rise currently at 23.2 (3) Renal failure: Qualifiers: Renal failure chronicity: unspecified chronicity Qualified Code(s): N19 - Unspecified kidney failure Code(s): N19 - Unspecified kidney failure Status: Acute Assessment and Plan: * ESRD with HD 3 times weekly * Currently BUN/Cr 23/3.90 * Nephrology on board * Continue dialysis per nephrology * Trend urine output * adjust therapy as indicated (4) Left leg DVT: Qualifiers: Affected thrombotic vein of extremity: unspecified lower extremity distal vein Chronicity: acute Qualified Code(s): I82.4Z2 - Acute embolism and thrombosis of unspecified deep veins of left distal lower extremity Code(s): I82.402 - Acute embolism and thrombosis of unspecified deep veins of left lower extremity Status: Acute Assessment and Plan: * Currently on Eliquis * Found last visit * Legs still swollen * Bleeding precautions (5) Chronic anticoagulation: Code(s): Z79.01 - health physicist (current) use of anticoagulants Status: Acute Assessment and Plan: * Recently found DVT * Continue Eliquis Time Spent With Patient Time: 48 minutes Time with patient: Greater than 35 minutes Subjective Date/time seen: 03/22/23 12:00 Interval history: Patient is 67-year-old female with past medical history of DVT who presented to the ED with complaints hematuria. Patient has several complaints including wanting the CBI turned back on generalized pain and anxiety. Patient seems to be very all over the place at this time. She does jump from 1 topic to the next. She is more concerned about where she is going to go in the end. Currently she is denying any chest pain shortness a breath, nausea, vomiting, diarrhea or constipation. She did complain of suprapubic pain stated that she feels is a clot there still. Will continue to trend urine output. Review of Systems Review of Systems: All systems reviewed & are unremarkable except as noted in HPI and below Objective Data Vital Signs Vital Signs: Vital Signs - 24 hr 03/21/23 16:00 03/21/23 18:43 03/21/23 17:00 Temperature 98.4 F Pulse Rate 114 H 120 H 70 Respiratory Rate 20 Blood Pressu
--- NOTE | 2023-03-22 14:00 | PM.PNNEP ---
Progress Note: A&P Assessment and Plan (1) ELPIDIO (acute kidney injury): Code(s): N17.9 - Acute kidney failure, unspecified Status: Acute Assessment and Plan: apparently secondary to ATN RENAL BIOPSY: acute kidney injury with ~ 10% interstitial fibrosis and tubular atrophy what caused ATN remains unclear however, theoretically, it is possible her renal function could recovery still with rising BUN and creatinine between dialysis treatments in association with significant LE edema HD tomorrow and continue T/T/S outpatient dialysis schedule follow trend of labs and UOP for potential renal recovery (2) Urinary tract infection: Qualifiers: Hematuria presence: with hematuria Urinary tract infection type: acute cystitis Qualified Code(s): N30.01 - Acute cystitis with hematuria Code(s): N39.0 - Urinary tract infection, site not specified Status: Acute Assessment and Plan: admission UA suggestive E. coli by urine cultre on antibiotics (3) Bilateral hydronephrosis: Code(s): N13.30 - Unspecified hydronephrosis Status: Acute Assessment and Plan: as noted by CT and ultrasound imaging cooley catheter in place (new catheter in place) Urology following (4) Gross hematuria: Code(s): R31.0 - Gross hematuria Status: Acute Assessment and Plan: secondary to cooley catheter, anticoagulation, and/or recent renal biopsy initiated on CBI on admission with improvement noted (currently off CBI) urine appears to be clear at this time Urology consultation/recommendations noted anticoagulation to be resumed (5) Metastatic cancer: Code(s): C79.9 - Secondary malignant neoplasm of unspecified site Status: Suspected Assessment and Plan: unclear on source but findings once again noted on imaging Oncology recommendations noted Will continue to follow. Subjective Date/time seen: 03/22/23 14:00 Interval history: Follow-up on acute kidney injury/acute renal failure (biopsy proven) requiring hemodialysis. Tolerated hemodialysis treatment yesterday afternoon without any issue or problems; no further hematuria noted off CBI; hard to keep patient focused one topic when conversing with her; no apparent distress noted; no issues/events overnight; not making much urine output. Exam Narrative: General: large female in NAD Heart: normal S1 and S2; no rub Lungs: clear anteriorly but decreased at bases Abdomen: obse but soft, nondistended; +TTP in lower abdomen; positive bowel sounds Extremities: no cyanosis or clubbing; 2 - 3+ edema Skin: warm and dry Objective Data Vital Signs Vital Signs: Vital Signs Temp Pulse Resp BP Pulse Ox O2 Del Method 03/22/23 12:00 111 H 03/22/23 08:00 111 H 03/22/23 14:00 98.1 F 110 H 18 102/61 90 03/22/23 08:06 95 Room Air 03/22/23 06:00 98.1 F 110 H 18 97/49 L 92 03/22/23 04:00 99 03/22/23 00:00 109 H 03/21/23 22:00 98.9 F 117 H 12 92/61 L 92 03/21/23 20:34 118 H 118/53 L 03/21/23 20:20 117 H 105/57 L 03/21/23 20:00 110 H 99/31 L 03/21/23 22:22 98.1 F 113 H 18 118/62 03/21/23 20:00 117 H Intake/Output Intake/Output: Intake & Output 03/19/23 03/20/23 03/21/23 03/22/23 23:59 23:59 23:59 23:59 Intake Total 1094 1508 Output Total 1999 1999 50 Awzvews -1999 -194 9817 Meds/Results Medications: Active Medications Generic Name Dose Route Start Last Admin Trade Name Diogenesq PRN Reason Stop Dose Admin Acetaminophen 650 mg 03/20/23 23:49 Acetaminophen 325 Mg Tablet PO Q6H PRN Mild Pain (1-3) or Fever Hydrocodone Bitart/Acetaminophen 1 tab 03/21/23 14:05 03/22/23 16:17 Hydrocodone/Acetaminophen (*Crx) 5-325 Mg Tablet PO 1 tab Q4H PRN Administration Pain Rated 4-6 Albuterol 2 puff 03/21/23 14:06 03/21/23 14:44 Albuterol Sulfa
--- NOTE | 2023-03-22 14:00 | P.PNNP_ITS ---
Progress Note: A&P Assessment and Plan (1) ELPIDIO (acute kidney injury): Code(s): N17.9 - Acute kidney failure, unspecified Status: Acute Assessment and Plan: * apparently secondary to ATN * RENAL BIOPSY: acute kidney injury with ~ 10% interstitial fibrosis and tubular atrophy * what caused ATN remains unclear * however, theoretically, it is possible her renal function could recovery * still with rising BUN and creatinine between dialysis treatments in associatio n with significant LE edema * HD tomorrow and continue T/T/S outpatient dialysis schedule * follow trend of labs and UOP for potential renal recovery (2) Urinary tract infection: Qualifiers: Hematuria presence: with hematuria Urinary tract infection type: acute cystitis Qualified Code(s): N30.01 - Acute cystitis with hematuria Code(s): N39.0 - Urinary tract infection, site not specified Status: Acute Assessment and Plan: * admission UA suggestive * E. coli by urine cultre * on antibiotics (3) Bilateral hydronephrosis: Code(s): N13.30 - Unspecified hydronephrosis Status: Acute Assessment and Plan: * as noted by CT and ultrasound imaging * cooley catheter in place (new catheter in place) * Urology following (4) Gross hematuria: Code(s): R31.0 - Gross hematuria Status: Acute Assessment and Plan: * secondary to cooley catheter, anticoagulation, and/or recent renal biopsy * initiated on CBI on admission with improvement noted (currently off CBI) * urine appears to be clear at this time * Urology consultation/recommendations noted * anticoagulation to be resumed (5) Metastatic cancer: Code(s): C79.9 - Secondary malignant neoplasm of unspecified site Status: Suspected Assessment and Plan: * unclear on source but findings once again noted on imaging * Oncology recommendations noted Will continue to follow. Subjective Date/time seen: 03/22/23 14:00 Interval history: Follow-up on acute kidney injury/acute renal failure (biopsy proven) requiring hemodialysis. Tolerated hemodialysis treatment yesterday afternoon without any issue or problems; no further hematuria noted off CBI; hard to keep patient focused one topic when conversing with her; no apparent distress noted; no issues/events overnight; not making much urine output. Exam Narrative: General: large female in NAD Heart: normal S1 and S2; no rub Lungs: clear anteriorly but decreased at bases Abdomen: obse but soft, nondistended; +TTP in lower abdomen; positive bowel sounds Extremities: no cyanosis or clubbing; 2 - 3+ edema Skin: warm and dry Objective Data Vital Signs Vital Signs: Vital Signs Temp Pulse Resp BP Pulse Ox O2 Del Method 03/22/23 12:00 111 H 03/22/23 08:00 111 H 03/22/23 14:00 98.1 F 110 H 18 102/61 90 03/22/23 08:06 95 Room Air 03/22/23 06:00 98.1 F 110 H 18 97/49 L 92 03/22/23 04:00 99 03/22/23 00:00 109 H 03/21/23 22:00 98.9 F 117 H 12 92/61 L 92 03/21/23 20:34 118 H 118/53 L 03/21/23 20:20 117 H 105/57 L 03/21/23 20:00 110 H 99/31 L 03/21/23 22:22 98.1 F 113 H 18 118/62 03/21/23 20:00 117 H Intake/Output Intake/Output:
--- NOTE | 2023-03-22 16:21 | WPDUROPN2 ---
Progress Note: A&P Assessment and Plan (1) ELPIDIO (acute kidney injury): Code(s): N17.9 - Acute kidney failure, unspecified Status: Acute Assessment and Plan: IMproved s/p cath placement, continue to monitor. (2) Bilateral hydronephrosis: Code(s): N13.30 - Unspecified hydronephrosis Status: Acute Assessment and Plan: Bilateral stents would only need to be placed if creatinine rises persistently per Dr. Alcala. No obstruction noted on CT scan. Keep cooley in place, failed void trial x1. Change cooley monthly and PRN at IL. (3) Urinary tract infection: Qualifiers: Hematuria presence: with hematuria Urinary tract infection type: acute cystitis Qualified Code(s): N30.01 - Acute cystitis with hematuria Code(s): N39.0 - Urinary tract infection, site not specified Status: Acute Assessment and Plan: E-Coli growing on culture, tailor antibiotics to sensitivity. Patient to continue Ceftriaxone. (4) Gross hematuria: Code(s): R31.0 - Gross hematuria Status: Acute Assessment and Plan: Resolved, CBI off. Subjective Subjective Date/Time Seen: 03/22/23 16:21 Principal diagnosis: CKD/Retention/UTI Interval history: Creatinine improved today s/p cath insertion and clot removal. CBI off, urine is dark but no blood or clots present. E-Coli growing on culture, no sensitivity. Patient remains on IV ceftriaxone. Afebrile but tachycardic. WBC is increased today to 23.3. REGGIE shows mild bilateral hydro, no change. Review of Systems Cardiovascular: Cardiovascular: Denies chest pain Respiratory: Respiratory: Reports no additional respiratory complaints Gastrointestinal: Gastrointestinal: Denies abdominal pain, Denies nausea and Denies vomiting Genitourinary: Genitourinary: Denies hematuria, Denies nocturia, Denies dysuria, Denies pelvic pain, Denies flank pain, Denies urinary incontinence, Reports urinary hesitancy and Denies urinary urgency Exam Const: General: cooperative and comfortable Resp: Effort & Inspection: normal respiratory effort Cardio: Rate: tachycardic GI: GI Palp: Yes Soft to palpation and No Tenderness to palpation present (GI) : General: Yes no CVA tenderness Urinary Catheter: Urinary Catheter: patent and draining, urine clear and urine dark Extrem: Right lower extremity: no edema Left lower extremity: no edema Objective Data Vital Signs Vital Signs: Vital Signs - 24 hr 03/21/23 18:43 03/21/23 17:00 03/21/23 17:00 Temperature 98.4 F Pulse Rate 120 H 70 111 H Respiratory Rate 20 Blood Pressure 150/39 H 96/69 L 117/64 Pulse Oximetry Oxygen Delivery 03/21/23 17:20 03/21/23 17:40 03/21/23 18:00 Temperature Pulse Rate 118 H 116 H 116 H Respiratory Rate Blood Pressure 117/55 L 124/77 181/70 H Pulse Oximetry Oxygen Delivery 03/21/23 18:21 03/21/23 19:01 03/21/23 19:21 Temperature Pulse Rate 120 H 118 H 114 H Respiratory Rate Blood Pressure 104/50 L 105/53 L 118/56 L Pulse Oximetry Oxygen Delivery 03/21/23 19:41 03/21/23 20:00 03/21/23 22:22 Temperature 98.1 F Pulse Rate 117 H 117 H 113 H Respiratory Rate 18 Blood Pressure 163/43 H 118/62 Pulse Oximetry Oxygen Delivery 03/21/23 20:00 03/21/23 20:20 03/21/23 20:34 Temperature Pulse Rate 110 H 117 H 118 H Respiratory Rate Blood Pressure 99/31 L 105/57 L 118/53 L Pulse Oximetry Oxygen Delivery 03/21/23 22:00 03/22/23 00:00 03/22/23 04:00 Temperature 98.9 F Pulse Rate 117 H 109 H 99 Respiratory Rate 12 Blood Pressure 92/61 L Pulse Oximetry 92 Oxygen Delivery 03/22/23 06:00 03/22/23 08:06 03/22/23 14:00 Temperature 98.1 F 98.1 F Pulse Rate 110 H 110 H Respiratory Rate 18 18 Blood Pressure 97/49 L 102/61 Pulse Oximetry 92 95 90 Oxygen Delivery Room Air 03/22/23 08:00 03/22/23 12:00 Temperature Pulse Rate 111 H 111 H Respiratory Rate
[2023-03-22] MEDS: MEROPENEM 500 MG in SODIUM CHLORIDE 0.9% IV 100 ML 200 ML IVPB (16:27)
[2023-03-23] VITALS (24 sets, daily range): BP systolic 85–132; BP diastolic 41–66; PULSE 76–112; RESP 14–16; TEMP 35.8–36.8; O2SAT 90–94
[2023-03-23] MEDS: HYDROcodone/acetaminophen (*CRX) 5-325 MG TABLET 1 TAB PO ×4 (04:10→20:15)
[2023-03-23] MEDS: LEVOTHYROXINE SODIUM 50 MCG TABLET PO (04:10)
[2023-03-23 06:45] LABS: Basophils Absolute Auto 0.2 K/mm3 (0.0-0.1); Basophils Percent Auto 0.6 % (0.2-1.2); Eosinophils Absolute Auto 0.2 K/mm3 (0-0.3); Eosinophils Percent Auto 0.8 % (0-4.4); Hematocrit 29.5 % (37.0-47.0); Hemoglobin 8.4 g/dL (12.0-15.0); Immature Granulocyte Absolute 1.08 K/mm3 (0.00-0.031); Immature Granulocyte Percent A 4.5 % (0-0.5); Lymphocytes Absolute Auto 1.47 K/mm3 (0.9-3.2); Lymphocytes Percent Auto 6.1 % (18.3-44.2); Mean Corpuscular HGB Conc 28.5 g/dl (32-36); Mean Corpuscular Hemoglobin 28.7 pg (26-34); Mean Corpuscular Volume 100.7 fl (80-100); Mean Platelet Volume 9.9 fl (7.4-10.4); Monocytes Absolute Auto 1.4 K/mm3 (0.1-0.6); Monocytes Percent Auto 5.9 % (2.6-8.5); Neutrophils Absolute Auto 19.7 K/mm3 (1.3-6.7); Neutrophils Percent Auto 82.1 % (45.5-73.1); Nucleated Red Blood Cells Perc 0.2 % (0.0-0.2); Platelet Count Result 332 k/mm3 (150-375); Red Blood Count 2.93 M/mm3 (4.2-5.4); Red Cell Distribution Width 32.9 % (11.5-14.5)
[2023-03-23 06:52] LABS: Alanine Aminotransferase 23 U/L (6-35); Albumin Level 3.5 g/dL (3.5-5.1); Alkaline Phosphatase 972 U/L (38-126); Anion Gap 17 mmol/L (8-16); Aspartate Amino Transferase 154 U/L (14-36); Bilirubin,Total 1.6 mg/dL (0.2-1.3); Blood Urea Nitrogen 32 mg/dL (7-17); Calcium 8.4 mg/dL (8.4-10.2); Carbon Dioxide 24 mmol/L (22-30); Chloride 96 mmol/L (98-107); Estimated CRCL calculation 15 ml/min; Estimated Glomerular Filt Rate 10; Glucose 111 mg/dL (65-110); Magnesium 2.1 mg/dL (1.6-2.3); Potassium 5.1 mmol/L (3.4-5.0); Sodium 137 mmol/L (137-145)
[2023-03-23 07:20] LABS: Anisocytosis 3+ (NORMAL); Hypochromasia 2+ (NORMAL); Platelet Estimate Adequate (Adequate)
[2023-03-23 07:21] LABS: Schistocytes None Seen (NORMAL); Stomatocytes 1+ (NORMAL)
[2023-03-23] MEDS: ALBUTEROL SULFATE (*SP) AEROSOL 1 PUFF 2 PUFF INHALATION (07:38)
[2023-03-23] MEDS: FUROSEMIDE 80 MG TABLET PO (08:03)
[2023-03-23] MEDS: ESCITALOPRAM OXALATE 5 MG TABLET PO (08:03)
[2023-03-23] MEDS: PANTOPRAZOLE 40 MG TABLET PO (08:03)
[2023-03-23] MEDS: MIDODRINE HCL 10 MG TABLET PO ×3 (08:03→16:49)
[2023-03-23] MEDS: APIXABAN 5 MG TABLET PO ×2 (08:05→16:49)
[2023-03-23] MEDS: DOCUSATE SODIUM 100 MG CAPSULE PO ×2 (08:05→20:14)
--- NOTE | 2023-03-23 08:10 | PCPTNOTE ---
Attempted PT evaluation, Pt in dialysis. Will follow.
--- NOTE | 2023-03-23 08:32 | PCOTNOTE ---
Patient out of the room at this time. Patient is in dialysis.
[2023-03-23] MEDS: SODIUM CHLORIDE 0.9% IV 1,000 ML 999 ML IV CONT (09:25)
[2023-03-23] MEDS: ALBUMIN HUMAN 25% 12.5 GM/50ML 50 ML IVPB (09:25)
[2023-03-23] MEDS: EPOETIN ALFA 10,000 UNITS/ML VIAL 10000 UNITS IV PUSH (09:25)
[2023-03-23 11:05] LABS: Hepatitis B Surface Antigen Negative (Negative)
[2023-03-23 11:11] LABS: HAV RESULT Negative (Negative); Hepatitis B Core IgM Result Negative (Negative)
[2023-03-23 11:22] LABS: Hepatitis C Virus Antibody Negative (Negative)
--- NOTE | 2023-03-23 11:50 | PM.PNNEP ---
Progress Note: A&P Assessment and Plan (1) ELPIDIO (acute kidney injury): Code(s): N17.9 - Acute kidney failure, unspecified Status: Acute Assessment and Plan: apparently secondary to ATN RENAL BIOPSY: acute kidney injury with ~ 10% interstitial fibrosis and tubular atrophy what caused ATN remains unclear however, theoretically, it is possible her renal function could recovery still with rising BUN and creatinine between dialysis treatments in association with significant LE edema HD tomorrow and continue T/T/S outpatient dialysis schedule follow trend of labs and UOP for potential renal recovery (2) Urinary tract infection: Qualifiers: Hematuria presence: with hematuria Urinary tract infection type: acute cystitis Qualified Code(s): N30.01 - Acute cystitis with hematuria Code(s): N39.0 - Urinary tract infection, site not specified Status: Acute Assessment and Plan: admission UA suggestive E. coli by urine cultre on antibiotics (3) Bilateral hydronephrosis: Code(s): N13.30 - Unspecified hydronephrosis Status: Acute Assessment and Plan: as noted by CT and ultrasound imaging cooley catheter in place (new catheter in place) Urology following (4) Gross hematuria: Code(s): R31.0 - Gross hematuria Status: Acute Assessment and Plan: secondary to cooley catheter, anticoagulation, and/or recent renal biopsy initiated on CBI on admission with improvement noted (currently off CBI) urine appears to be clear at this time Urology consultation/recommendations noted anticoagulation to be resumed (5) Metastatic cancer: Code(s): C79.9 - Secondary malignant neoplasm of unspecified site Status: Suspected Assessment and Plan: unclear on source but findings once again noted on imaging Oncology recommendations noted Will continue to follow. Subjective Date/time seen: 03/23/23 11:50 Interval history: Follow-up for acute kidney injury/acute renal failure with dialysis dependence/on hemodialysis. Tolerating hemodialysis treatment at the time of my visit (seen on HD at 11:40AM); fluid removal limited by fluctuating hemodynamics; not much urine output in the last 24 hours with AM labs noted; no acute distress noted but has many complaints but difficult to elaborate since she fails to stay on topics during conversation with her. Exam Narrative: General: large female in NAD Heart: normal S1 and S2; no rub Lungs: clear anteriorly but decreased at bases Abdomen: obse but soft, nondistended; +TTP in lower abdomen; positive bowel sounds Extremities: no cyanosis or clubbing; 2 - 3+ edema Skin: warm and dry Objective Data Vital Signs Vital Signs: Vital Signs Temp Pulse Resp BP Pulse Ox O2 Del Method 03/23/23 11:40 110 H 122/57 L 03/23/23 11:20 106 H 94/48 L 03/23/23 11:00 111 H 93/50 L 03/23/23 10:40 110 H 101/52 L 03/23/23 08:40 105 H 95/50 L 03/23/23 10:20 99 102/59 L 03/23/23 10:00 108 H 85/48 L 03/23/23 09:40 108 H 89/41 L 03/23/23 09:20 109 H 94/47 L 03/23/23 09:00 109 H 91/41 L 03/23/23 08:23 102 H 102/60 03/23/23 08:11 98.3 F 103 H 16 132/55 L 03/23/23 06:00 96.5 F L 100 14 104/52 L 94 03/23/23 04:00 93 03/23/23 00:00 102 H 03/22/23 20:00 94 03/22/23 21:57 96.2 F L 99 18 113/51 L 91 03/22/23 20:00 114 H 18 90 Room Air 03/22/23 16:00 114 H 03/22/23 14:00 98.1 F 110 H 18 102/61 90 Intake/Output Intake/Output: Intake & Output 03/20/23 03/21/23 03/22/23 03/23/23 23:59 23:59 23:59 23:59 Intake Total 1094 1508 444 Output Total 1999 1999 50 1999 Balance -1999 -906 3388 -0158 Meds/Results Medications: Active Medications Generic Name Dose Route Start Last Admin Trade Name Stefanie PRN Reason Stop Dose Admin Acetaminophen 650 m
--- NOTE | 2023-03-23 11:50 | P.PNNP_ITS ---
Progress Note: A&P Assessment and Plan (1) ELIPDIO (acute kidney injury): Code(s): N17.9 - Acute kidney failure, unspecified Status: Acute Assessment and Plan: * apparently secondary to ATN * RENAL BIOPSY: acute kidney injury with ~ 10% interstitial fibrosis and tubular atrophy * what caused ATN remains unclear * however, theoretically, it is possible her renal function could recovery * still with rising BUN and creatinine between dialysis treatments in associatio n with significant LE edema * HD tomorrow and continue T/T/S outpatient dialysis schedule * follow trend of labs and UOP for potential renal recovery (2) Urinary tract infection: Qualifiers: Hematuria presence: with hematuria Urinary tract infection type: acute cystitis Qualified Code(s): N30.01 - Acute cystitis with hematuria Code(s): N39.0 - Urinary tract infection, site not specified Status: Acute Assessment and Plan: * admission UA suggestive * E. coli by urine cultre * on antibiotics (3) Bilateral hydronephrosis: Code(s): N13.30 - Unspecified hydronephrosis Status: Acute Assessment and Plan: * as noted by CT and ultrasound imaging * cooley catheter in place (new catheter in place) * Urology following (4) Gross hematuria: Code(s): R31.0 - Gross hematuria Status: Acute Assessment and Plan: * secondary to cooley catheter, anticoagulation, and/or recent renal biopsy * initiated on CBI on admission with improvement noted (currently off CBI) * urine appears to be clear at this time * Urology consultation/recommendations noted * anticoagulation to be resumed (5) Metastatic cancer: Code(s): C79.9 - Secondary malignant neoplasm of unspecified site Status: Suspected Assessment and Plan: * unclear on source but findings once again noted on imaging * Oncology recommendations noted Will continue to follow. Subjective Date/time seen: 03/23/23 11:50 Interval history: Follow-up for acute kidney injury/acute renal failure with dialysis dependence/on hemodialysis. Tolerating hemodialysis treatment at the time of my visit (seen on HD at 11:40AM); fluid removal limited by fluctuating hemodynamics; not much urine output in the last 24 hours with AM labs noted; no acute distress noted but has many complaints but difficult to elaborate since she fails to stay on topics during conversation with her. Exam Narrative: General: large female in NAD Heart: normal S1 and S2; no rub Lungs: clear anteriorly but decreased at bases Abdomen: obse but soft, nondistended; +TTP in lower abdomen; positive bowel sounds Extremities: no cyanosis or clubbing; 2 - 3+ edema Skin: warm and dry Objective Data Vital Signs Vital Signs: Vital Signs Temp Pulse Resp BP Pulse Ox O2 Del Method 03/23/23 11:40 110 H 122/57 L 03/23/23 11:20 106 H 94/48 L 03/23/23 11:00 111 H 93/50 L 03/23/23 10:40 110 H 101/52 L 03/23/23 08:40 105 H 95/50 L 03/23/23 10:20 99 102/59 L 03/23/23 10:00 108 H 85/48 L 03/23/23 09:40 108 H 89/41 L 03/23/23 09:20 109 H 94/47 L 03/23/23 09:00 109 H 91/41 L 03/23/23 08:23 102 H 102/60 03/23/23 08:11 98.3 F 103 H 16 132/55 L 03/23/23 06:00 96.5 F L 100 14
--- NOTE | 2023-03-23 12:45 | PM.IMPN ---
Progress Note: A&P Assessment and Plan (1) Gross hematuria: Code(s): R31.0 - Gross hematuria Status: Acute Assessment and Plan: Presented to the emergency department for evaluation of gross hematuria. Three-way Smith catheter inserted CBI DC'd per urology. Urology has been consulted Recommended patient keep chronic Smith in place.? H&H is stable at 8.4/29.5? Per urology okay to restart Eliquis at this time. No further hematuria noted Trend labs (2) Urinary tract infection: Qualifiers: Hematuria presence: with hematuria Urinary tract infection type: acute cystitis Qualified Code(s): N30.01 - Acute cystitis with hematuria Code(s): N39.0 - Urinary tract infection, site not specified Status: Acute Assessment and Plan: Urine looks infected she has been started on ceftriaxone urine culture grew ECOLI Adjust antibiotic therapy to culture results.? Meropenem continued Sensitivities show a very limited antibiotic choice Leukocytosis continues to rise currently at 23.2 (3) Renal failure: Qualifiers: Renal failure chronicity: unspecified chronicity Qualified Code(s): N19 - Unspecified kidney failure Code(s): N19 - Unspecified kidney failure Status: Acute Assessment and Plan: ESRD with HD 3 times weekly Currently BUN/Cr 32/4.50 Nephrology on board Continue dialysis per nephrology Trend urine output adjust therapy as indicated (4) Left leg DVT: Qualifiers: Affected thrombotic vein of extremity: unspecified lower extremity distal vein Chronicity: acute Qualified Code(s): I82.4Z2 - Acute embolism and thrombosis of unspecified deep veins of left distal lower extremity Code(s): I82.402 - Acute embolism and thrombosis of unspecified deep veins of left lower extremity Status: Acute Assessment and Plan: Currently on Eliquis Found last visit Legs still swollen Bleeding precautions (5) Chronic anticoagulation: Code(s): Z79.01 - longterm (current) use of anticoagulants Status: Acute Assessment and Plan: Recently found DVT Continue Eliquis Time Spent With Patient Time: 43 minutes Time with patient: Greater than 35 minutes Subjective Date/time seen: 03/23/23 1245 Interval history: 03/23/231244 Patient is laying in bed. She stated that she is in pain, about a 7. He denied any chest pain, shortness of breath, nausea, vomiting, diarrhea, constipation, sweats, fevers, and chills. Spoke with her and her ex- Hector, about the plan of care. She has agreed with the current plan at this time. However, she did seem to be a disgruntle about having to go to rehab. She stated that she would go as long as she had a private room. Also, talked to her about not wanting to be bed bound as that is not appropriate. She did agree at that point. 03/22/23 Patient is 67-year-old female with past medical history of DVT who presented to the ED with complaints hematuria. Patient has several complaints including wanting the CBI turned back on generalized pain and anxiety. Patient seems to be very all over the place at this time. She does jump from 1 topic to the next. She is more concerned about where she is going to go in the end. Currently she is denying any chest pain shortness a breath, nausea, vomiting, diarrhea or constipation. She did complain of suprapubic pain stated that she feels is a clot there still. Will continue to trend urine output. Review of Systems Review of Systems: All systems reviewed & are unremarkable except as noted in HPI and below Exam Narrative: General: well-nourished, obese-appearing 67-year-old female, laying in bed, uncomfortable, NARD Neuro: awake, alert and oriented x4, speech clear, no focal neuro deficits noted HEENMT: normocephalic, atraumatic, EOMI, sclerae anicteric, yusef
--- NOTE | 2023-03-23 12:45 | P.PNIM_ITS ---
Progress Note: A&P Assessment and Plan (1) Gross hematuria: Code(s): R31.0 - Gross hematuria Status: Acute Assessment and Plan: * Presented to the emergency department for evaluation of gross hematuria. * Three-way Smith catheter inserted * CBI DC'd per urology. * Urology has been consulted * Recommended patient keep chronic Smith in place.? * H&H is stable at 8.4/29.5? * Per urology okay to restart Eliquis at this time. * No further hematuria noted * Trend labs (2) Urinary tract infection: Qualifiers: Hematuria presence: with hematuria Urinary tract infection type: acute cystitis Qualified Code(s): N30.01 - Acute cystitis with hematuria Code(s): N39.0 - Urinary tract infection, site not specified Status: Acute Assessment and Plan: * Urine looks infected she has been started on ceftriaxone * urine culture grew ECOLI * Adjust antibiotic therapy to culture results.? * Meropenem continued * Sensitivities show a very limited antibiotic choice * Leukocytosis continues to rise currently at 23.2 (3) Renal failure: Qualifiers: Renal failure chronicity: unspecified chronicity Qualified Code(s): N19 - Unspecified kidney failure Code(s): N19 - Unspecified kidney failure Status: Acute Assessment and Plan: * ESRD with HD 3 times weekly * Currently BUN/Cr 32/4.50 * Nephrology on board * Continue dialysis per nephrology * Trend urine output * adjust therapy as indicated (4) Left leg DVT: Qualifiers: Affected thrombotic vein of extremity: unspecified lower extremity distal vein Chronicity: acute Qualified Code(s): I82.4Z2 - Acute embolism and thrombosis of unspecified deep veins of left distal lower extremity Code(s): I82.402 - Acute embolism and thrombosis of unspecified deep veins of left lower extremity Status: Acute Assessment and Plan: * Currently on Eliquis * Found last visit * Legs still swollen * Bleeding precautions (5) Chronic anticoagulation: Code(s): Z79.01 - halfway (current) use of anticoagulants Status: Acute Assessment and Plan: * Recently found DVT * Continue Eliquis Time Spent With Patient Time: 43 minutes Time with patient: Greater than 35 minutes Subjective Date/time seen: 03/23/23 1245 Interval history: 03/23/23 1245 Patient is laying in bed. She stated that she is in pain, about a 7. He denied any chest pain, shortness of breath, nausea, vomiting, diarrhea, constipation, sweats, fevers, and chills. Spoke with her and her ex- Hector, about the plan of care. She has agreed with the current plan at this time. However, she did seem to be a disgruntle about having to go to rehab. She stated that she would go as long as she had a private room. Also, talked to her about not wanting to be bed bound as that is not appropriate. She did agree at that point. 03/22/23 Patient is 67-year-old female with past medical history of DVT who presented to the ED with complaints hematuria. Patient has several complaints including wanting the CBI turned back on generalized pain and anxiety. Patient seems to be very all over the place at this time. She does jump from 1 topic to the next. She is more concerned about where she is going to go in the end. Currently she is denying any chest pain shortness a breath, nausea, vomiting, diarrhea or constip
--- NOTE | 2023-03-23 14:15 | PCOTNOTE ---
Patient out of the room. Patient had gotten back from dialysis but is not having an ultrasound of her ankles at this time. Patient unavailable for treatment.
[2023-03-23] MEDS: MEROPENEM 500 MG in SODIUM CHLORIDE 0.9% IV 100 ML 200 ML IVPB (16:50)
[2023-03-24] VITALS (10 sets, daily range): BP systolic 105–112; BP diastolic 57–65; PULSE 93–101; RESP 12–16; TEMP 35.7–36.7; O2SAT 90–94
[2023-03-24] MEDS: MORPHINE SULFATE (*CRX) 2 MG/ML INJ IV PUSH ×2 (02:18→19:17)
--- NOTE | 2023-03-24 02:19 | PC.NURSE ---
while pt was being cleaned up and turned on her side, pt became bradycardic according to tele monitor. Pt reported feeling SOB. Pt returned to supine position and HR immediately returned to 100s, where pt's HR normally runs
[2023-03-24] MEDS: HYDROcodone/acetaminophen (*CRX) 5-325 MG TABLET 1 TAB PO ×3 (02:51→21:19)
[2023-03-24] MEDS: LEVOTHYROXINE SODIUM 50 MCG TABLET PO (05:41)
[2023-03-24 06:46] LABS: Basophils Absolute Auto 0.2 K/mm3 (0.0-0.1); Eosinophils Absolute Auto 0.2 K/mm3 (0-0.3); Eosinophils Percent Auto 0.7 % (0-4.4); Hematocrit 30.7 % (37.0-47.0); Hemoglobin 8.6 g/dL (12.0-15.0); Immature Granulocyte Absolute 1.14 K/mm3 (0.00-0.031); Immature Granulocyte Percent A 5.3 % (0-0.5); Lymphocytes Absolute Auto 1.75 K/mm3 (0.9-3.2); Lymphocytes Percent Auto 8.1 % (18.3-44.2); Mean Corpuscular Hemoglobin 28.8 pg (26-34); Mean Corpuscular Volume 102.7 fl (80-100); Mean Platelet Volume 9.9 fl (7.4-10.4); Monocytes Absolute Auto 1.2 K/mm3 (0.1-0.6); Monocytes Percent Auto 5.6 % (2.6-8.5); Neutrophils Absolute Auto 17.1 K/mm3 (1.3-6.7); Neutrophils Percent Auto 79.3 % (45.5-73.1); Nucleated Red Blood Cells Absolute Auto 0.1 K/mm3 (0.0-0.012); Nucleated Red Blood Cells Perc 0.4 % (0.0-0.2); Platelet Count Result 323 k/mm3 (150-375); Red Blood Count 2.99 M/mm3 (4.2-5.4); Red Cell Distribution Width 32.7 % (11.5-14.5); White Blood Count 21.6 K/mm3 (4.5-10.0)
[2023-03-24 07:11] LABS: Alanine Aminotransferase 24 U/L (6-35); Albumin Level 3.6 g/dL (3.5-5.1); Alkaline Phosphatase 1067 U/L (38-126); Anion Gap 13 mmol/L (8-16); Aspartate Amino Transferase 161 U/L (14-36); Bilirubin,Total 2.1 mg/dL (0.2-1.3); Blood Urea Nitrogen 23 mg/dL (7-17); Calcium 8.4 mg/dL (8.4-10.2); Carbon Dioxide 25 mmol/L (22-30); Chloride 97 mmol/L (98-107); Estimated CRCL calculation 20 ml/min; Estimated Glomerular Filt Rate 13; Glucose 121 mg/dL (65-110); Potassium 4.4 mmol/L (3.4-5.0); Sodium 135 mmol/L (137-145)
[2023-03-24 07:33] LABS: Glucose Point of Care 104 mg/dl (65-105)
[2023-03-24] MEDS: ALBUTEROL SULFATE (*SP) AEROSOL 1 PUFF 2 PUFF INHALATION ×2 (07:41→20:05)
[2023-03-24 07:58] LABS: Anisocytosis 2+ (NORMAL); Hypochromasia 1+ (NORMAL); Macrocytosis 1+ (NORMAL); Platelet Estimate Adequate (Adequate); Schistocytes None Seen (NORMAL)
[2023-03-24] MEDS: PANTOPRAZOLE 40 MG TABLET PO (08:35)
[2023-03-24] MEDS: MIDODRINE HCL 10 MG TABLET PO ×3 (08:35→18:28)
[2023-03-24] MEDS: ESCITALOPRAM OXALATE 5 MG TABLET PO (08:35)
[2023-03-24] MEDS: APIXABAN 5 MG TABLET PO (08:35)
[2023-03-24] MEDS: DOCUSATE SODIUM 100 MG CAPSULE PO ×2 (08:37→21:17)
--- NOTE | 2023-03-24 10:30 | PM.IMPN ---
Progress Note: A&P Assessment and Plan (1) Gross hematuria: Code(s): R31.0 - Gross hematuria Status: Acute Assessment and Plan: Presented to the emergency department for evaluation of gross hematuria. Three-way Smith catheter inserted CBI restarted. Urology has been consulted Recommended patient keep chronic Smith in place.? H&H is stable at 8.6/30.7? Will hold Eliquis for now No further hematuria noted Trend labs (2) Urinary tract infection: Qualifiers: Hematuria presence: with hematuria Urinary tract infection type: acute cystitis Qualified Code(s): N30.01 - Acute cystitis with hematuria Code(s): N39.0 - Urinary tract infection, site not specified Status: Acute Assessment and Plan: Urine looks infected she has been started on ceftriaxone urine culture grew ECOLI Adjust antibiotic therapy to culture results.? Meropenem continued Sensitivities show a very limited antibiotic choice Leukocytosis continues to rise currently at 21.6 (3) Renal failure: Qualifiers: Renal failure chronicity: unspecified chronicity Qualified Code(s): N19 - Unspecified kidney failure Code(s): N19 - Unspecified kidney failure Status: Acute Assessment and Plan: ESRD with HD 3 times weekly Currently BUN/Cr 23/3.40 Nephrology on board Continue dialysis per nephrology Trend urine output adjust therapy as indicated (4) Left leg DVT: Qualifiers: Affected thrombotic vein of extremity: unspecified lower extremity distal vein Chronicity: acute Qualified Code(s): I82.4Z2 - Acute embolism and thrombosis of unspecified deep veins of left distal lower extremity Code(s): I82.402 - Acute embolism and thrombosis of unspecified deep veins of left lower extremity Status: Acute Assessment and Plan: Currently on Eliquis Found last visit Legs still swollen Bleeding precautions (5) Chronic anticoagulation: Code(s): Z79.01 - watermelon harvesting supervisor (current) use of anticoagulants Status: Acute Assessment and Plan: Recently found DVT Continue Eliquis Time Spent With Patient Time: 48 minutes Time with patient: Greater than 35 minutes Subjective Date/time seen: 03/24/23 1030 Interval history: 03/24/23 103 Patient seemed a bit lethargic. Nausea and vomiting came on abruptly. She denies any current chest pain, shortness of breath, fevers, sweats, or chills. She is having some bloody urine. Urology instructed for the patient to be restarted on CBI. she is still complaining of feeling that she has a blood clot in her pelvis. 03/23/23 1245 Patient is laying in bed. She stated that she is in pain, about a 7. He denied any chest pain, shortness of breath, nausea, vomiting, diarrhea, constipation, sweats, fevers, and chills. Spoke with her and her ex- Hector, about the plan of care. She has agreed with the current plan at this time. However, she did seem to be a disgruntle about having to go to rehab. She stated that she would go as long as she had a private room. Also, talked to her about not wanting to be bed bound as that is not appropriate. She did agree at that point. 03/22/23 Patient is 67-year-old female with past medical history of DVT who presented to the ED with complaints hematuria. Patient has several complaints including wanting the CBI turned back on generalized pain and anxiety. Patient seems to be very all over the place at this time. She does jump from 1 topic to the next. She is more concerned about where she is going to go in the end. Currently she is denying any chest pain shortness a breath, nausea, vomiting, diarrhea or constipation. She did complain of suprapubic pain stated that she feels is a clot there still. Will continue to trend urine output. Review of Systems Review of Systems: All systems reviewed &
--- NOTE | 2023-03-24 10:30 | P.PNIM_ITS ---
Progress Note: A&P Assessment and Plan (1) Gross hematuria: Code(s): R31.0 - Gross hematuria Status: Acute Assessment and Plan: * Presented to the emergency department for evaluation of gross hematuria. * Three-way Smith catheter inserted * CBI restarted. * Urology has been consulted * Recommended patient keep chronic Smith in place.? * H&H is stable at 8.6/30.7? * Will hold Eliquis for now * No further hematuria noted * Trend labs (2) Urinary tract infection: Qualifiers: Hematuria presence: with hematuria Urinary tract infection type: acute cystitis Qualified Code(s): N30.01 - Acute cystitis with hematuria Code(s): N39.0 - Urinary tract infection, site not specified Status: Acute Assessment and Plan: * Urine looks infected she has been started on ceftriaxone * urine culture grew ECOLI * Adjust antibiotic therapy to culture results.? * Meropenem continued * Sensitivities show a very limited antibiotic choice * Leukocytosis continues to rise currently at 21.6 (3) Renal failure: Qualifiers: Renal failure chronicity: unspecified chronicity Qualified Code(s): N19 - Unspecified kidney failure Code(s): N19 - Unspecified kidney failure Status: Acute Assessment and Plan: * ESRD with HD 3 times weekly * Currently BUN/Cr 23/3.40 * Nephrology on board * Continue dialysis per nephrology * Trend urine output * adjust therapy as indicated (4) Left leg DVT: Qualifiers: Affected thrombotic vein of extremity: unspecified lower extremity distal vein Chronicity: acute Qualified Code(s): I82.4Z2 - Acute embolism and thrombosis of unspecified deep veins of left distal lower extremity Code(s): I82.402 - Acute embolism and thrombosis of unspecified deep veins of left lower extremity Status: Acute Assessment and Plan: * Currently on Eliquis * Found last visit * Legs still swollen * Bleeding precautions (5) Chronic anticoagulation: Code(s): Z79.01 - residential (current) use of anticoagulants Status: Acute Assessment and Plan: * Recently found DVT * Continue Eliquis Time Spent With Patient Time: 48 minutes Time with patient: Greater than 35 minutes Subjective Date/time seen: 03/24/23 1030 Interval history: 03/24/23 103 Patient seemed a bit lethargic. Nausea and vomiting came on abruptly. She denies any current chest pain, shortness of breath, fevers, sweats, or chills. She is having some bloody urine. Urology instructed for the patient to be restarted on CBI. she is still complaining of feeling that she has a blood clot in her pelvis. 03/23/23 1245 Patient is laying in bed. She stated that she is in pain, about a 7. He denied any chest pain, shortness of breath, nausea, vomiting, diarrhea, constipation, sweats, fevers, and chills. Spoke with her and her ex- Hector, about the plan of care. She has agreed with the current plan at this time. However, she did seem to be a disgruntle about having to go to rehab. She stated that she would go as long as she had a private room. Also, talked to her about not wanting to be bed bound as that is not appropriate. She did agree at that point. 03/22/23 Patient is 67-year-old female with past medical history of DVT who presented to the ED with complaints hematuria. Patient has several complaints includi
[2023-03-24] MEDS: ONDANSETRON INJ 4 MG/2 ML VIAL IV PUSH (11:25)
--- NOTE | 2023-03-24 11:59 | P.PNNP_ITS ---
Progress Note: A&P Assessment and Plan (1) ELPIDIO (acute kidney injury): Code(s): N17.9 - Acute kidney failure, unspecified Status: Acute Assessment and Plan: * apparently secondary to ATN * RENAL BIOPSY: acute kidney injury with ~ 10% interstitial fibrosis and tubular atrophy * what caused the ATN remains unclear * however, theoretically, it is possible her renal function could recovery * still with rising BUN and creatinine between dialysis treatments in associ ation with significant LE edema * HD tomorrow and continue T/T/S outpatient dialysis schedule * follow trend of labs and UOP for potential renal recovery (2) Urinary tract infection: Qualifiers: Hematuria presence: with hematuria Urinary tract infection type: acute cystitis Qualified Code(s): N30.01 - Acute cystitis with hematuria Code(s): N39.0 - Urinary tract infection, site not specified Status: Acute Assessment and Plan: * admission UA suggestive * E. coli by urine cultre * on antibiotics (3) Bilateral hydronephrosis: Code(s): N13.30 - Unspecified hydronephrosis Status: Acute Assessment and Plan: * as noted by CT and ultrasound imaging * cooley catheter in place (new catheter in place) * Urology following (4) Gross hematuria: Code(s): R31.0 - Gross hematuria Status: Acute Assessment and Plan: * secondary to cooley catheter, anticoagulation, and/or recent renal biopsy * initiated on CBI on admission with improvement noted * recurrence of hematuria so back on CBI * urine appears to be clear at this time * Urology consultation/recommendations noted * on anticoagulation (5) Metastatic cancer: Code(s): C79.9 - Secondary malignant neoplasm of unspecified site Status: Suspected Assessment and Plan: * unclear on source but findings once again noted on imaging * Oncology recommendations noted Will continue to follow. Subjective Date/time seen: 03/24/23 11:59 Interval history: Follow-up for acute kidney injury/acute renal failure with dialysis dependence/on hemodialysis. Tolerated dialysis treatment yesterday without any issue; seemed a bit more sleepy at the time of my visit and some issues with nausea/vomiting earlier as well; back on CBI due to fluctuating hematuria. Exam Narrative: General: large female in NAD Heart: normal S1 and S2; no rub Lungs: clear anteriorly but decreased at bases Abdomen: obse but soft, nondistended; +TTP in lower abdomen; positive bowel sounds Extremities: no cyanosis or clubbing; 2 - 3+ edema Skin: warm and intact Objective Data Vital Signs Vital Signs: Vital Signs Temp Pulse Resp BP Pulse Ox O2 Del Method 03/24/23 11:50 93 03/24/23 08:00 99 03/24/23 08:40 Room Air 03/24/23 14:00 98.0 F 96 12 105/65 91 03/24/23 08:46 Room Air 03/24/23 07:43 90 Room Air 03/24/23 06:00 96.3 F L 97 16 112/57 L 92 03/24/23 04:00 101 H Intake/Output Intake/Output: Intake & Output 03/21/23 03/22/23 03/23/23 03/24/23 23:59 23:59 23:59 23:59 Intake Total 1094 1508 1708 722 Output Total 1999 50 1999 0 Balance -906 1459 -667 722 Meds/Results Medications:
--- NOTE | 2023-03-24 11:59 | PM.PNNEP ---
Progress Note: A&P Assessment and Plan (1) ELPIDIO (acute kidney injury): Code(s): N17.9 - Acute kidney failure, unspecified Status: Acute Assessment and Plan: apparently secondary to ATN RENAL BIOPSY: acute kidney injury with ~ 10% interstitial fibrosis and tubular atrophy what caused the ATN remains unclear however, theoretically, it is possible her renal function could recovery still with rising BUN and creatinine between dialysis treatments in association with significant LE edema HD tomorrow and continue T/T/S outpatient dialysis schedule follow trend of labs and UOP for potential renal recovery (2) Urinary tract infection: Qualifiers: Hematuria presence: with hematuria Urinary tract infection type: acute cystitis Qualified Code(s): N30.01 - Acute cystitis with hematuria Code(s): N39.0 - Urinary tract infection, site not specified Status: Acute Assessment and Plan: admission UA suggestive E. coli by urine cultre on antibiotics (3) Bilateral hydronephrosis: Code(s): N13.30 - Unspecified hydronephrosis Status: Acute Assessment and Plan: as noted by CT and ultrasound imaging cooley catheter in place (new catheter in place) Urology following (4) Gross hematuria: Code(s): R31.0 - Gross hematuria Status: Acute Assessment and Plan: secondary to cooley catheter, anticoagulation, and/or recent renal biopsy initiated on CBI on admission with improvement noted recurrence of hematuria so back on CBI urine appears to be clear at this time Urology consultation/recommendations noted on anticoagulation (5) Metastatic cancer: Code(s): C79.9 - Secondary malignant neoplasm of unspecified site Status: Suspected Assessment and Plan: unclear on source but findings once again noted on imaging Oncology recommendations noted Will continue to follow. Subjective Date/time seen: 03/24/23 11:59 Interval history: Follow-up for acute kidney injury/acute renal failure with dialysis dependence/on hemodialysis. Tolerated dialysis treatment yesterday without any issue; seemed a bit more sleepy at the time of my visit and some issues with nausea/vomiting earlier as well; back on CBI due to fluctuating hematuria. Exam Narrative: General: large female in NAD Heart: normal S1 and S2; no rub Lungs: clear anteriorly but decreased at bases Abdomen: obse but soft, nondistended; +TTP in lower abdomen; positive bowel sounds Extremities: no cyanosis or clubbing; 2 - 3+ edema Skin: warm and intact Objective Data Vital Signs Vital Signs: Vital Signs Temp Pulse Resp BP Pulse Ox O2 Del Method 03/24/23 11:50 93 03/24/23 08:00 99 03/24/23 08:40 Room Air 03/24/23 14:00 98.0 F 96 12 105/65 91 03/24/23 08:46 Room Air 03/24/23 07:43 90 Room Air 03/24/23 06:00 96.3 F L 97 16 112/57 L 92 03/24/23 04:00 101 H Intake/Output Intake/Output: Intake & Output 03/21/23 03/22/23 03/23/23 03/24/23 23:59 23:59 23:59 23:59 Intake Total 1094 1508 1708 722 Output Total 1999 50 1999 0 Balance -906 1455 -151 722 Meds/Results Medications: Active Medications Generic Name Dose Route Start Last Admin Trade Name Freq PRN Reason Stop Dose Admin Acetaminophen 650 mg 03/20/23 23:49 Acetaminophen 325 Mg Tablet PO Q6H PRN Mild Pain (1-3) or Fever Hydrocodone Bitart/Acetaminophen 1 tab 03/21/23 14:05 03/24/23 08:40 Hydrocodone/Acetaminophen (*Crx) 5-325 Mg Tablet PO 1 tab Q4H PRN Administration Pain Rated 4-6 Albuterol 2 puff 03/21/23 14:06 03/24/23 07:41 Albuterol Sulfate (*Sp) Aerosol 1 Puff INHALATION 2 puff Q6HRT PRN Administration Shortness Of Breath Apixaban 5 mg 03/21/23 17:00 03/24/23 08:35 Apixaban 5 Mg Tablet PO 04/20/23 16:59 5 mg BID LEX Administration Docusate Sodium 100
[2023-03-24] MEDS: MEROPENEM 500 MG in SODIUM CHLORIDE 0.9% IV 100 ML 200 ML IVPB (18:28)
[2023-03-25] VITALS (9 sets, daily range): BP systolic 103–135; BP diastolic 58–93; PULSE 90–100; RESP 17–18; TEMP 36.4; O2SAT 90–93
[2023-03-25] MEDS: HYDROcodone/acetaminophen (*CRX) 5-325 MG TABLET 1 TAB PO ×3 (01:31→21:53)
[2023-03-25] MEDS: ONDANSETRON INJ 4 MG/2 ML VIAL IV PUSH ×3 (01:32→09:20)
[2023-03-25] MEDS: MORPHINE SULFATE (*CRX) 2 MG/ML INJ IV PUSH ×3 (05:09→19:45)
[2023-03-25] MEDS: LEVOTHYROXINE SODIUM 50 MCG TABLET PO (05:42)
--- NOTE | 2023-03-25 05:52 | PC.NURSE ---
pt had 2 episodes of nausea with vomiting this shift. pt received zofran both times which did relieve symptoms. pt first stated that she thinks the IV morphine made her sick, then later stated she thinks the [place] made her sick.
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
[2023-03-25] MEDS: ESCITALOPRAM OXALATE 5 MG TABLET PO (09:21)
[2023-03-25] MEDS: DOCUSATE SODIUM 100 MG CAPSULE PO ×2 (09:22→19:45)
[2023-03-25] MEDS: PANTOPRAZOLE 40 MG TABLET PO (09:22)
[2023-03-25] MEDS: MIDODRINE HCL 10 MG TABLET PO ×3 (09:22→18:01)
[2023-03-25 09:47] LABS: Basophils Absolute Auto 0.1 K/mm3 (0.0-0.1); Basophils Percent Auto 0.7 % (0.2-1.2); Eosinophils Absolute Auto 0.1 K/mm3 (0-0.3); Eosinophils Percent Auto 0.6 % (0-4.4); Hematocrit 30.6 % (37.0-47.0); Hemoglobin 8.7 g/dL (12.0-15.0); Immature Granulocyte Absolute 0.88 K/mm3 (0.00-0.031); Immature Granulocyte Percent A 4.9 % (0-0.5); Lymphocytes Absolute Auto 1.28 K/mm3 (0.9-3.2); Lymphocytes Percent Auto 7.2 % (18.3-44.2); Mean Corpuscular HGB Conc 28.4 g/dl (32-36); Mean Platelet Volume 9.4 fl (7.4-10.4); Monocytes Percent Auto 5.5 % (2.6-8.5); Neutrophils Absolute Auto 14.4 K/mm3 (1.3-6.7); Neutrophils Percent Auto 81.1 % (45.5-73.1); Nucleated Red Blood Cells Absolute Auto 0.1 K/mm3 (0.0-0.012); Nucleated Red Blood Cells Perc 0.3 % (0.0-0.2); Platelet Count Result 305 k/mm3 (150-375); Red Cell Distribution Width 31.8 % (11.5-14.5); White Blood Count 17.8 K/mm3 (4.5-10.0)
[2023-03-25 10:03] LABS: Alanine Aminotransferase 25 U/L (6-35); Albumin Level 3.4 g/dL (3.5-5.1); Alkaline Phosphatase 1126 U/L (38-126); Anion Gap 13 mmol/L (8-16); Aspartate Amino Transferase 188 U/L (14-36); Bilirubin,Total 2.7 mg/dL (0.2-1.3); Blood Urea Nitrogen 31 mg/dL (7-17); Calcium 8.6 mg/dL (8.4-10.2); Carbon Dioxide 23 mmol/L (22-30); Chloride 94 mmol/L (98-107); Estimated CRCL calculation 16 ml/min; Estimated Glomerular Filt Rate 10; Glucose 96 mg/dL (65-110); Potassium 4.6 mmol/L (3.4-5.0); Sodium 130 mmol/L (137-145)
[2023-03-25 10:14] LABS: Anisocytosis 2+ (NORMAL); Hypochromasia 1+ (NORMAL); Macrocytosis 1+ (NORMAL); Platelet Estimate Adequate (Adequate); Schistocytes None Seen (NORMAL); Stomatocytes 1+ (NORMAL)
[2023-03-25] MEDS: MORPHINE SULFATE (*CRX) 2 MG/ML INJ 1 MG IV PUSH (12:51)
[2023-03-25] MEDS: PROCHLORPERAZINE EDISYLATE 10 MG/2 ML VIAL IV PUSH (12:51)
[2023-03-25] MEDS: oxyBUTYnin CHLORIDE 5 MG TABLET PO (12:59)
--- NOTE | 2023-03-25 14:00 | PM.PNNEP ---
Progress Note: A&P Assessment and Plan (1) ELPIDIO (acute kidney injury): Code(s): N17.9 - Acute kidney failure, unspecified Status: Acute Assessment and Plan: apparently secondary to ATN RENAL BIOPSY: acute kidney injury with ~ 10% interstitial fibrosis and tubular atrophy what caused the ATN remains unclear however, theoretically, it is possible her renal function could recovery still with rising BUN and creatinine between dialysis treatments in association with significant LE edema plan HD tomorrow and then resume T/T/S outpatient dialysis schedule follow trend of labs and UOP for potential renal recovery (2) Urinary tract infection: Qualifiers: Hematuria presence: with hematuria Urinary tract infection type: acute cystitis Qualified Code(s): N30.01 - Acute cystitis with hematuria Code(s): N39.0 - Urinary tract infection, site not specified Status: Acute Assessment and Plan: admission UA suggestive E. coli by urine cultre on antibiotics (3) Bilateral hydronephrosis: Code(s): N13.30 - Unspecified hydronephrosis Status: Acute Assessment and Plan: as noted by CT and ultrasound imaging cooley catheter in place (new catheter in place) Urology following (4) Gross hematuria: Code(s): R31.0 - Gross hematuria Status: Acute Assessment and Plan: secondary to cooley catheter, anticoagulation, and/or recent renal biopsy initiated on CBI on admission with improvement noted recurrence of hematuria so back on CBI urine appears to be clear at this time Urology consultation/recommendations noted on anticoagulation (5) Metastatic cancer: Code(s): C79.9 - Secondary malignant neoplasm of unspecified site Status: Suspected Assessment and Plan: unclear on source but findings once again noted on imaging Oncology recommendations noted Will continue to follow. Subjective Date/time seen: 03/25/23 14:00 Interval history: Follow-up for acute kidney injury/acute renal failure with dialysis dependence/on hemodialysis. Major complaint is that of persistent lower abdominal pain in association with nausea although her initial response when I asked her what was wrong was everything -- she was scheduled for dialysis today but due to a more urgent ER patient needing emergent dialysis, she will get her treatment tomorrow. Exam Narrative: General: large female in NAD Heart: normal S1 and S2; no rub Lungs: clear anteriorly but decreased at bases Abdomen: obese but soft, nondistended; +TTP in lower abdomen; positive bowel sounds Extremities: no cyanosis or clubbing; 2 - 3+ edema Skin: no rash Objective Data Vital Signs Vital Signs: Vital Signs Temp Pulse Resp BP Pulse Ox O2 Del Method 03/25/23 13:13 97.6 F 100 18 109/58 L 91 03/25/23 04:00 90 03/25/23 05:31 97.6 F 97 17 103/69 93 03/25/23 00:00 91 03/24/23 20:00 95 03/24/23 20:00 Room Air 03/24/23 21:30 97.1 F L 97 14 107/58 L 94 03/24/23 20:08 92 Room Air Intake/Output Intake/Output: Intake & Output 03/22/23 03/23/23 03/24/23 03/25/23 23:59 23:59 23:59 23:59 Intake Total 1508 1708 822 860 Output Total 50 2000 0 2400 Balance 1458 -292 822 -1540 Meds/Results Medications: Active Medications Generic Name Dose Route Start Last Admin Trade Name Stefanie PRN Reason Stop Dose Admin Acetaminophen 650 mg 03/20/23 23:49 Acetaminophen 325 Mg Tablet PO Q6H PRN Mild Pain (1-3) or Fever Hydrocodone Bitart/Acetaminophen 1 tab 03/21/23 14:05 03/25/23 16:16 Hydrocodone/Acetaminophen (*Crx) 5-325 Mg Tablet PO 1 tab Q4H PRN Administration Pain Rated 4-6 Albuterol 2 puff 03/21/23 14:06 03/24/23 20:05 Albuterol Sulfate (*Sp) Aerosol 1 Puff INHALATION 2 puff Q6HRT PRN Administration Shortness Of Breath Apixaban 5 mg 03/21/23 17:
--- NOTE | 2023-03-25 14:00 | P.PNNP_ITS ---
Progress Note: A&P Assessment and Plan (1) ELPIDIO (acute kidney injury): Code(s): N17.9 - Acute kidney failure, unspecified Status: Acute Assessment and Plan: * apparently secondary to ATN * RENAL BIOPSY: acute kidney injury with ~ 10% interstitial fibrosis and tubular atrophy * what caused the ATN remains unclear * however, theoretically, it is possible her renal function could recovery * still with rising BUN and creatinine between dialysis treatments in associ ation with significant LE edema * plan HD tomorrow and then resume T/T/S outpatient dialysis schedule * follow trend of labs and UOP for potential renal recovery (2) Urinary tract infection: Qualifiers: Hematuria presence: with hematuria Urinary tract infection type: acute cystitis Qualified Code(s): N30.01 - Acute cystitis with hematuria Code(s): N39.0 - Urinary tract infection, site not specified Status: Acute Assessment and Plan: * admission UA suggestive * E. coli by urine cultre * on antibiotics (3) Bilateral hydronephrosis: Code(s): N13.30 - Unspecified hydronephrosis Status: Acute Assessment and Plan: * as noted by CT and ultrasound imaging * cooley catheter in place (new catheter in place) * Urology following (4) Gross hematuria: Code(s): R31.0 - Gross hematuria Status: Acute Assessment and Plan: * secondary to cooley catheter, anticoagulation, and/or recent renal biopsy * initiated on CBI on admission with improvement noted * recurrence of hematuria so back on CBI * urine appears to be clear at this time * Urology consultation/recommendations noted * on anticoagulation (5) Metastatic cancer: Code(s): C79.9 - Secondary malignant neoplasm of unspecified site Status: Suspected Assessment and Plan: * unclear on source but findings once again noted on imaging * Oncology recommendations noted Will continue to follow. Subjective Date/time seen: 03/25/23 14:00 Interval history: Follow-up for acute kidney injury/acute renal failure with dialysis dependence/on hemodialysis. Major complaint is that of persistent lower abdominal pain in association with nausea although her initial response when I asked her what was wrong was everything -- she was scheduled for dialysis today but due to a more urgent ER patient needing emergent dialysis, she will get her treatment tomorrow. Exam Narrative: General: large female in NAD Heart: normal S1 and S2; no rub Lungs: clear anteriorly but decreased at bases Abdomen: obese but soft, nondistended; +TTP in lower abdomen; positive bowel sounds Extremities: no cyanosis or clubbing; 2 - 3+ edema Skin: no rash Objective Data Vital Signs Vital Signs: Vital Signs Temp Pulse Resp BP Pulse Ox O2 Del Method 03/25/23 13:13 97.6 F 100 18 109/58 L 91 03/25/23 04:00 90 03/25/23 05:31 97.6 F 97 17 103/69 93 03/25/23 00:00 91 03/24/23 20:00 95 03/24/23 20:00 Room Air 03/24/23 21:30 97.1 F L 97 14 107/58 L 94 03/24/23 20:08 92 Room Air Intake/Output Intake/Output: Intake & Output 03/22/23 03/23/23 03/24/23 03/25/23 23:59 23:59 23:59 23:59 Intake Total 1508 1708 822 860 O
[2023-03-25] MEDS: ALBUTEROL SULFATE (*SP) AEROSOL 1 PUFF 2 PUFF INHALATION (17:12)
[2023-03-25] MEDS: MEROPENEM 500 MG in SODIUM CHLORIDE 0.9% IV 100 ML 200 ML IVPB (18:01)
[2023-03-26] VITALS (24 sets, daily range): BP systolic 80–124; BP diastolic 43–70; PULSE 88–113; RESP 14–20; TEMP 35.8–36.9; O2SAT 87–100
[2023-03-26] MEDS: MORPHINE SULFATE (*CRX) 2 MG/ML INJ IV PUSH ×3 (00:27→10:56)
[2023-03-26] MEDS: HYDROcodone/acetaminophen (*CRX) 5-325 MG TABLET 1 TAB PO (02:48)
[2023-03-26] MEDS: LEVOTHYROXINE SODIUM 50 MCG TABLET PO (05:29)
[2023-03-26 06:40] LABS: Basophils Absolute Auto 0.1 K/mm3 (0.0-0.1); Basophils Percent Auto 0.5 % (0.2-1.2); Eosinophils Absolute Auto 0.1 K/mm3 (0-0.3); Eosinophils Percent Auto 0.6 % (0-4.4); Hematocrit 28.8 % (37.0-47.0); Hemoglobin 8.2 g/dL (12.0-15.0); Immature Granulocyte Absolute 0.92 K/mm3 (0.00-0.031); Immature Granulocyte Percent A 5.5 % (0-0.5); Lymphocytes Absolute Auto 1.23 K/mm3 (0.9-3.2); Lymphocytes Percent Auto 7.3 % (18.3-44.2); Mean Corpuscular HGB Conc 28.5 g/dl (32-36); Mean Corpuscular Hemoglobin 28.8 pg (26-34); Mean Corpuscular Volume 101.1 fl (80-100); Mean Platelet Volume 9.6 fl (7.4-10.4); Monocytes Absolute Auto 0.9 K/mm3 (0.1-0.6); Monocytes Percent Auto 5.4 % (2.6-8.5); Neutrophils Absolute Auto 13.6 K/mm3 (1.3-6.7); Neutrophils Percent Auto 80.7 % (45.5-73.1); Nucleated Red Blood Cells Perc 0.2 % (0.0-0.2); Platelet Count Result 293 k/mm3 (150-375); Red Blood Count 2.85 M/mm3 (4.2-5.4); Red Cell Distribution Width 31.2 % (11.5-14.5); White Blood Count 16.8 K/mm3 (4.5-10.0)
[2023-03-26 06:56] LABS: INR 1.7; Prothrombin Time 20.9 Seconds (11.1-14.7)
[2023-03-26 06:58] LABS: Partial Thromboplastin Time 47.6 SECONDS (22.3-36.8)
[2023-03-26 07:20] LABS: Alanine Aminotransferase 25 U/L (6-35); Albumin Level 3.3 g/dL (3.5-5.1); Alkaline Phosphatase 1163 U/L (38-126); Anion Gap 12 mmol/L (8-16); Aspartate Amino Transferase 183 U/L (14-36); Bilirubin,Total 2.7 mg/dL (0.2-1.3); Blood Urea Nitrogen 38 mg/dL (7-17); Calcium 8.7 mg/dL (8.4-10.2); Carbon Dioxide 24 mmol/L (22-30); Chloride 94 mmol/L (98-107); Estimated CRCL calculation 15 ml/min; Estimated Glomerular Filt Rate 9; Glucose 91 mg/dL (65-110); Magnesium 2.2 mg/dL (1.6-2.3); Potassium 4.9 mmol/L (3.4-5.0); Sodium 130 mmol/L (137-145)
[2023-03-26 07:33] LABS: Anisocytosis 3+ (NORMAL); Hypochromasia 1+ (NORMAL); Platelet Estimate Adequate (Adequate); Schistocytes None Seen (NORMAL); Target Cells 1+ (NORMAL)
--- NOTE | 2023-03-26 09:07 | P.PNIM_ITS ---
Progress Note: A&P Assessment and Plan (1) Gross hematuria: Code(s): R31.0 - Gross hematuria Status: Acute Assessment and Plan: * Presented to the emergency department for evaluation of gross hematuria. * Three-way Smith catheter inserted * CBI remains hanging but is paused. * Urology has been consulted * Recommended patient keep chronic Smith in place.? * H&H is stable at 8.6/30.7? * Will hold Eliquis for now * No further hematuria noted * Trend labs (2) Urinary tract infection: Qualifiers: Hematuria presence: with hematuria Urinary tract infection type: acute cystitis Qualified Code(s): N30.01 - Acute cystitis with hematuria Code(s): N39.0 - Urinary tract infection, site not specified Status: Acute Assessment and Plan: * Urine looks infected she has been started on ceftriaxone * urine culture grew ECOLI * Adjust antibiotic therapy to culture results.? * Meropenem continued. Needs 14 days of IV abx. EOT 04/04. * [place] from nephrology to place midline * Sensitivities show a very limited antibiotic choice * Leukocytosis continues to rise currently at 21.6 (3) Renal failure: Qualifiers: Renal failure chronicity: unspecified chronicity Qualified Code(s): N19 - Unspecified kidney failure Code(s): N19 - Unspecified kidney failure Status: Acute Assessment and Plan: * ESRD with HD 3 times weekly * Currently BUN/Cr 23/3.40 * Nephrology on board * Continue dialysis per nephrology * Trend urine output * adjust therapy as indicated * Nephrology is okay with a midline placement if there is no other choice for access. (4) Left leg DVT: Qualifiers: Affected thrombotic vein of extremity: unspecified lower extremity distal vein Chronicity: acute Qualified Code(s): I82.4Z2 - Acute embolism and thrombosis of unspecified deep veins of left distal lower extremity Code(s): I82.402 - Acute embolism and thrombosis of unspecified deep veins of left lower extremity Status: Acute Assessment and Plan: * Currently on Eliquis * Found last visit * Legs still swollen * Bleeding precautions (5) Chronic anticoagulation: Code(s): Z79.01 - terminal press operator (current) use of anticoagulants Status: Acute Assessment and Plan: * Recently found DVT * Continue Eliquis Plan Added oxybutynin for bladder spasm Dialysis today Change pain medications to Oxy Awaiting midline placement Subjective Date/time seen: 03/26/23 09:07 Interval history: 03/26/29 1002 Resting in bed. Patient looks much more comfortable today. She says that she is still having pain but it is better. I asked her if the oxybutynin helped with pain, yesterday was concerned that may be part of her pain was from bladder spasms with the CBI. She said that it did so I will start a regimen with that while the Smith remains. A changed upper p.o. pain medication to include Oxy 5 or 10 mg every 4 hours p.r.n. I encouraged her to use the pain pills today if her nausea is controlled as these will last longer than the IV pain medication. She agrees that she will try. Dialysis did not happen yesterday she supposed to go today. Otherwise she has no new complaints. Order for midline was placed. 03/25/23 1148 Seen on a.m. rounds resting in bed and appears uncomfortable. She says she is having nausea. When I asked her h
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
[2023-03-26] MEDS: ESCITALOPRAM OXALATE 5 MG TABLET PO (09:22)
[2023-03-26] MEDS: PANTOPRAZOLE 40 MG TABLET PO (09:22)
[2023-03-26] MEDS: DOCUSATE SODIUM 100 MG CAPSULE PO ×2 (09:23→21:00)
[2023-03-26] MEDS: MIDODRINE HCL 10 MG TABLET PO ×3 (09:23→16:43)
[2023-03-26] MEDS: ALBUTEROL SULFATE (*SP) AEROSOL 1 PUFF 2 PUFF INHALATION (10:09)
[2023-03-26] MEDS: oxyBUTYnin CHLORIDE 5 MG TABLET PO ×3 (11:18→16:43)
[2023-03-26] MEDS: ALBUMIN HUMAN 25% 12.5 GM/50ML 100 ML 50 GM (11:31)
--- NOTE | 2023-03-26 12:40 | PM.PNNEP ---
Progress Note: A&P Assessment and Plan (1) ELPIDIO (acute kidney injury): Code(s): N17.9 - Acute kidney failure, unspecified Status: Acute Assessment and Plan: apparently secondary to ATN RENAL BIOPSY: acute kidney injury with ~ 10% interstitial fibrosis and tubular atrophy what caused the ATN remains unclear however, theoretically, it is possible her renal function could recovery still with rising BUN and creatinine between dialysis treatments in association with significant LE edema HD today and then continue T/T/S outpatient dialysis schedule follow trend of labs and UOP for potential renal recovery (2) Urinary tract infection: Qualifiers: Hematuria presence: with hematuria Urinary tract infection type: acute cystitis Qualified Code(s): N30.01 - Acute cystitis with hematuria Code(s): N39.0 - Urinary tract infection, site not specified Status: Acute Assessment and Plan: admission UA suggestive E. coli by urine cultre on antibiotics (3) Bilateral hydronephrosis: Code(s): N13.30 - Unspecified hydronephrosis Status: Acute Assessment and Plan: as noted by CT and ultrasound imaging cooley catheter in place (new catheter in place) Urology following (4) Gross hematuria: Code(s): R31.0 - Gross hematuria Status: Acute Assessment and Plan: secondary to cooley catheter, anticoagulation, and/or recent renal biopsy initiated on CBI on admission with improvement noted recurrence of hematuria so back on CBI urine appears to be clear at this time Urology consultation/recommendations noted on anticoagulation (5) Metastatic cancer: Code(s): C79.9 - Secondary malignant neoplasm of unspecified site Status: Suspected Assessment and Plan: unclear on source but findings once again noted on imaging Oncology recommendations noted Will continue to follow. Subjective Date/time seen: 03/26/23 12:40 Interval history: Follow-up for acute kidney injury/acute renal failure with dialysis dependence/on hemodialysis. Tolerating hemodialysis treatment at the time of my visit (seen on HD at 12:30PM); BP is a bit soft (due to pain medications?) so fluid removal may be limited; pain control seems adequate; difficult to assess UOP with CBI; no other acute issues voiced. Exam Narrative: General: large female in NAD Heart: normal S1 and S2; no rub Lungs: clear anteriorly but decreased at bases Abdomen: obese but soft, nondistended; +TTP in lower abdomen; positive bowel sounds Extremities: no cyanosis or clubbing; 2 - 3+ edema Skin: no nodules Objective Data Vital Signs Vital Signs: Vital Signs Temp Pulse Resp BP Pulse Ox O2 Del Method 03/26/23 12:40 101 H 91/44 L 03/26/23 12:20 104 H 85/45 L 03/26/23 12:00 100 80/45 L 03/26/23 11:40 99 97/55 L 03/26/23 11:25 97 97/43 L 03/26/23 11:15 97.7 F 97 16 90/50 L 03/26/23 08:00 103 H 03/26/23 06:39 118/70 03/26/23 05:22 96.5 F L 88 18 93/58 L 100 03/26/23 04:00 93 03/26/23 02:47 111/59 L 03/26/23 00:42 116/66 03/26/23 00:00 94 03/25/23 20:00 90 Room Air 03/25/23 20:00 97 03/25/23 19:47 97.5 F L 90 18 135/93 H 90 03/25/23 16:00 94 03/25/23 15:13 97.6 F 100 18 109/58 L 91 Intake/Output Intake/Output: Intake & Output 03/23/23 03/24/23 03/25/23 03/26/23 23:59 23:59 23:59 23:59 Intake Total 7658 770 9516 0 Output Total 2000 0 4150 1650 Balance -242 822 850 -1650 Meds/Results Medications: Active Medications Generic Name Dose Route Start Last Admin Trade Name Freq PRN Reason Stop Dose Admin Acetaminophen 650 mg 03/20/23 23:49 Acetaminophen 325 Mg Tablet PO Q6H PRN Mild Pain (1-3) or Fever Albuterol 2 puff 03/21/23 14:06 03/26/23 10:09 Albuterol Sulfate (*Sp) Aerosol 1 Puff INHAL
--- NOTE | 2023-03-26 12:40 | P.PNNP_ITS ---
Progress Note: A&P Assessment and Plan (1) ELPIDIO (acute kidney injury): Code(s): N17.9 - Acute kidney failure, unspecified Status: Acute Assessment and Plan: * apparently secondary to ATN * RENAL BIOPSY: acute kidney injury with ~ 10% interstitial fibrosis and tubular atrophy * what caused the ATN remains unclear * however, theoretically, it is possible her renal function could recovery * still with rising BUN and creatinine between dialysis treatments in associ ation with significant LE edema * HD today and then continue T/T/S outpatient dialysis schedule * follow trend of labs and UOP for potential renal recovery (2) Urinary tract infection: Qualifiers: Hematuria presence: with hematuria Urinary tract infection type: acute cystitis Qualified Code(s): N30.01 - Acute cystitis with hematuria Code(s): N39.0 - Urinary tract infection, site not specified Status: Acute Assessment and Plan: * admission UA suggestive * E. coli by urine cultre * on antibiotics (3) Bilateral hydronephrosis: Code(s): N13.30 - Unspecified hydronephrosis Status: Acute Assessment and Plan: * as noted by CT and ultrasound imaging * cooley catheter in place (new catheter in place) * Urology following (4) Gross hematuria: Code(s): R31.0 - Gross hematuria Status: Acute Assessment and Plan: * secondary to cooley catheter, anticoagulation, and/or recent renal biopsy * initiated on CBI on admission with improvement noted * recurrence of hematuria so back on CBI * urine appears to be clear at this time * Urology consultation/recommendations noted * on anticoagulation (5) Metastatic cancer: Code(s): C79.9 - Secondary malignant neoplasm of unspecified site Status: Suspected Assessment and Plan: * unclear on source but findings once again noted on imaging * Oncology recommendations noted Will continue to follow. Subjective Date/time seen: 03/26/23 12:40 Interval history: Follow-up for acute kidney injury/acute renal failure with dialysis dependence/on hemodialysis. Tolerating hemodialysis treatment at the time of my visit (seen on HD at 12:30PM); BP is a bit soft (due to pain medications?) so fluid removal may be limited; pain control seems adequate; difficult to assess UOP with CBI; no other acute issues voiced. Exam Narrative: General: large female in NAD Heart: normal S1 and S2; no rub Lungs: clear anteriorly but decreased at bases Abdomen: obese but soft, nondistended; +TTP in lower abdomen; positive bowel sounds Extremities: no cyanosis or clubbing; 2 - 3+ edema Skin: no nodules Objective Data Vital Signs Vital Signs: Vital Signs Temp Pulse Resp BP Pulse Ox O2 Del Method 03/26/23 12:40 101 H 91/44 L 03/26/23 12:20 104 H 85/45 L 03/26/23 12:00 100 80/45 L 03/26/23 11:40 99 97/55 L 03/26/23 11:25 97 97/43 L 03/26/23 11:15 97.7 F 97 16 90/50 L 03/26/23 08:00 103 H 03/26/23 06:39 118/70 03/26/23 05:22 96.5 F L 88 18 93/58 L 100 03/26/23 04:00 93 03/26/23 02:47 111/59 L 03/26/23 00:42 116/66 03/26/23 00:00 94 03/25/23 20:00 90 Room Air 03/25/23 20:00 97 03/25/23 19:47
--- NOTE | 2023-03-26 13:14 | PCOTNOTE ---
Attempted to see pt for Occupational Therapy treatment. Pt is currently out of room for dialysis. Will continue per POC duration/frequency tomorrow.
[2023-03-26] MEDS: ALBUMIN HUMAN 25% 12.5 GM/50ML 50 ML IVPB (13:45)
[2023-03-26] MEDS: EPOETIN ALFA 20,000 UNITS/ML VIAL 20000 UNITS IV PUSH (13:47)
[2023-03-26] MEDS: oxyCODONE HCL (*CRX) 5 MG TAB IR PO (15:45)
[2023-03-26] MEDS: MEROPENEM 500 MG in SODIUM CHLORIDE 0.9% IV 100 ML 200 ML IVPB (16:43)
[2023-03-26] MEDS: oxyCODONE HCL (*CRX) 5 MG TAB IR 10 MG PO ×2 (19:27→23:52)
[2023-03-26] MEDS: ACETAMINOPHEN 325 MG TABLET 650 MG PO (23:52)
[2023-03-27] VITALS (10 sets, daily range): BP systolic 108–140; BP diastolic 62–88; PULSE 78–105; RESP 12–20; TEMP 36.1–36.4; O2SAT 91–97; BMI 10.0
[2023-03-27] MEDS: oxyCODONE HCL (*CRX) 5 MG TAB IR 10 MG PO ×2 (04:00→11:02)
[2023-03-27] MEDS: ACETAMINOPHEN 325 MG TABLET 650 MG PO (05:39)
[2023-03-27] MEDS: LEVOTHYROXINE SODIUM 50 MCG TABLET PO (05:40)
[2023-03-27 07:00] LABS: Hematocrit 30.2 % (37.0-47.0); Hemoglobin 8.3 g/dL (12.0-15.0); Mean Corpuscular HGB Conc 27.5 g/dl (32-36); Mean Corpuscular Volume 105.6 fl (80-100); Mean Platelet Volume 9.7 fl (7.4-10.4); Platelet Count Result 251 k/mm3 (150-375); Red Blood Count 2.86 M/mm3 (4.2-5.4); Red Cell Distribution Width 31.4 % (11.5-14.5); White Blood Count 16.5 K/mm3 (4.5-10.0)
[2023-03-27 07:20] LABS: Alanine Aminotransferase 28 U/L (6-35); Albumin Level 3.6 g/dL (3.5-5.1); Alkaline Phosphatase 1259 U/L (38-126); Anion Gap 15 mmol/L (8-16); Aspartate Amino Transferase 217 U/L (14-36); Bilirubin,Total 2.8 mg/dL (0.2-1.3); Blood Urea Nitrogen 25 mg/dL (7-17); Calcium 8.5 mg/dL (8.4-10.2); Carbon Dioxide 23 mmol/L (22-30); Chloride 98 mmol/L (98-107); Estimated CRCL calculation 19 ml/min; Estimated Glomerular Filt Rate 13; Glucose 100 mg/dL (65-110); Sodium 136 mmol/L (137-145)
--- NOTE | 2023-03-27 08:02 | P.PNIM_ITS ---
Progress Note: A&P Assessment and Plan (1) Gross hematuria: Code(s): R31.0 - Gross hematuria Status: Acute Assessment and Plan: * Presented to the emergency department for evaluation of gross hematuria. * Three-way Cooley catheter replaced due to leaking around cooley * Blood clots present, will restart CBI * Urology has been consulted * Recommended patient keep chronic Cooley in place.? * H&H is stable at 8.6/30.7? * Will hold Eliquis for now * No further hematuria noted * Trend labs (2) Urinary tract infection: Qualifiers: Hematuria presence: with hematuria Urinary tract infection type: acute cystitis Qualified Code(s): N30.01 - Acute cystitis with hematuria Code(s): N39.0 - Urinary tract infection, site not specified Status: Acute Assessment and Plan: * Urine looks infected she has been started on ceftriaxone * urine culture grew ECOLI * Adjust antibiotic therapy to culture results.? * Meropenem continued. Needs 14 days of IV abx. EOT 04/04. * [place] from nephrology to place midline * Sensitivities show a very limited antibiotic choice * Leukocytosis improving (3) Renal failure: Qualifiers: Renal failure chronicity: unspecified chronicity Qualified Code(s): N19 - Unspecified kidney failure Code(s): N19 - Unspecified kidney failure Status: Acute Assessment and Plan: * ESRD with HD 3 times weekly * Currently BUN/Cr 23/3.40 * Nephrology on board * Continue dialysis per nephrology * Trend urine output * adjust therapy as indicated * Nephrology is okay with a midline placement if there is no other choice for access. (4) Left leg DVT: Qualifiers: Affected thrombotic vein of extremity: unspecified lower extremity distal vein Chronicity: acute Qualified Code(s): I82.4Z2 - Acute embolism and thrombosis of unspecified deep veins of left distal lower extremity Code(s): I82.402 - Acute embolism and thrombosis of unspecified deep veins of left lower extremity Status: Acute Assessment and Plan: * Currently on Eliquis * Found last visit * Legs still swollen * Bleeding precautions (5) Chronic anticoagulation: Code(s): Z79.01 - intermediate accountant (current) use of anticoagulants Status: Acute Assessment and Plan: * Recently found DVT * Continue Eliquis at d/c Plan Added oxybutynin for bladder spasm Change pain medications to Oxy Awaiting midline placement Replace [address] catheter Restart CBI Subjective Date/time seen: 03/27/23 08:02 Interval history: 03/27/23 1222 Seen on rounds this morning resting in bed she appears comfortable. she says that her pain is better controlled with oxycodone and oxybutynin. Besides her pain she does not have any concerns. Peer to peer was completed today with insurance improved for fdc through 04/02. I also spoke with Dr. Rogel, vascular nurse, who is going to place midline today. Her urine appears dark red. I had concerns that she needed irrigation. I attempted to manually irrigate her Cooley but the solution kept leaking back out. the balloon only had 10 ml on it so I added 20 mL, But still the solution leaked around the catheter. replaced 3 way catheter with nurses assistance. Small return of blood-tinged urine. Again then tried to manually irrigate the Cooley but the solution continues to leak back out around the cathet
--- NOTE | 2023-03-27 08:02 | PM.IMPN ---
Progress Note: A&P Assessment and Plan (1) Gross hematuria: Code(s): R31.0 - Gross hematuria Status: Acute Assessment and Plan: Presented to the emergency department for evaluation of gross hematuria. Three-way Cooley catheter replaced due to leaking around cooley Blood clots present, will restart CBI Urology has been consulted Recommended patient keep chronic Cooley in place.? H&H is stable at 8.6/30.7? Will hold Eliquis for now No further hematuria noted Trend labs (2) Urinary tract infection: Qualifiers: Hematuria presence: with hematuria Urinary tract infection type: acute cystitis Qualified Code(s): N30.01 - Acute cystitis with hematuria Code(s): N39.0 - Urinary tract infection, site not specified Status: Acute Assessment and Plan: Urine looks infected she has been started on ceftriaxone urine culture grew ECOLI Adjust antibiotic therapy to culture results.? Meropenem continued. Needs 14 days of IV abx. EOT 04/04. [place] from nephrology to place midline Sensitivities show a very limited antibiotic choice Leukocytosis improving (3) Renal failure: Qualifiers: Renal failure chronicity: unspecified chronicity Qualified Code(s): N19 - Unspecified kidney failure Code(s): N19 - Unspecified kidney failure Status: Acute Assessment and Plan: ESRD with HD 3 times weekly Currently BUN/Cr 23/3.40 Nephrology on board Continue dialysis per nephrology Trend urine output adjust therapy as indicated Nephrology is okay with a midline placement if there is no other choice for access. (4) Left leg DVT: Qualifiers: Affected thrombotic vein of extremity: unspecified lower extremity distal vein Chronicity: acute Qualified Code(s): I82.4Z2 - Acute embolism and thrombosis of unspecified deep veins of left distal lower extremity Code(s): I82.402 - Acute embolism and thrombosis of unspecified deep veins of left lower extremity Status: Acute Assessment and Plan: Currently on Eliquis Found last visit Legs still swollen Bleeding precautions (5) Chronic anticoagulation: Code(s): Z79.01 - [facility] (current) use of anticoagulants Status: Acute Assessment and Plan: Recently found DVT Continue Eliquis at d/c Plan Added oxybutynin for bladder spasm Change pain medications to Oxy Awaiting midline placement Replace 3 way catheter Restart CBI Subjective Date/time seen: 03/27/23 08:02 Interval history: 03/27/23 1222 Seen on rounds this morning resting in bed she appears comfortable. she says that her pain is better controlled with oxycodone and oxybutynin. Besides her pain she does not have any concerns. Peer to peer was completed today with insurance improved for intermediate through 04/02. I also spoke with Dr. Rogel, vascular nurse, who is going to place midline today. Her urine appears dark red. I had concerns that she needed irrigation. I attempted to manually irrigate her Cooley but the solution kept leaking back out. the balloon only had 10 ml on it so I added 20 mL, But still the solution leaked around the catheter. replaced 3 way catheter with nurses assistance. Small return of blood-tinged urine. Again then tried to manually irrigate the Cooley but the solution continues to leak back out around the catheter. I have reached out to Urology to see the recommendation. Wrote for CBI to be restarted. Patient tolerated procedure well. 03/26/29 1002 Resting in bed. Patient looks much more comfortable today. She says that she is still having pain but it is better. I asked her if the oxybutynin helped with pain, yesterday was concerned that may be part of her pain was from bladder spasms with the CBI. She said that it did so I will start a regimen with that while the Cooley remains. A changed uppe
[2023-03-27] MEDS: MIDODRINE HCL 10 MG TABLET PO ×3 (09:22→18:09)
[2023-03-27] MEDS: oxyBUTYnin CHLORIDE 5 MG TABLET PO ×3 (09:22→18:09)
[2023-03-27] MEDS: DOCUSATE SODIUM 100 MG CAPSULE PO ×2 (09:22→21:35)
[2023-03-27] MEDS: PANTOPRAZOLE 40 MG TABLET PO (09:22)
[2023-03-27] MEDS: ESCITALOPRAM OXALATE 5 MG TABLET PO (09:23)
[2023-03-27] MEDS: ALBUTEROL SULFATE (*SP) AEROSOL 1 PUFF 2 PUFF INHALATION (11:25)
--- NOTE | 2023-03-27 11:34 | PM.PNNEP ---
Progress Note: A&P Assessment and Plan (1) ELPIDIO (acute kidney injury): Code(s): N17.9 - Acute kidney failure, unspecified Status: Acute Assessment and Plan: apparently secondary to ATN RENAL BIOPSY: acute kidney injury with ~ 10% interstitial fibrosis and tubular atrophy what caused the ATN remains unclear however, theoretically, it is possible her renal function could recovery still with rising BUN and creatinine between dialysis treatments in association with significant LE edema HD tomorrow and continue T/T/S outpatient dialysis schedule follow trend of labs and UOP for potential renal recovery (2) Urinary tract infection: Qualifiers: Hematuria presence: with hematuria Urinary tract infection type: acute cystitis Qualified Code(s): N30.01 - Acute cystitis with hematuria Code(s): N39.0 - Urinary tract infection, site not specified Status: Acute Assessment and Plan: admission UA suggestive E. coli by urine cultre on antibiotics (3) Bilateral hydronephrosis: Code(s): N13.30 - Unspecified hydronephrosis Status: Acute Assessment and Plan: as noted by CT and ultrasound imaging cooley catheter in place (new catheter in place) Urology following (4) Gross hematuria: Code(s): R31.0 - Gross hematuria Status: Acute Assessment and Plan: secondary to cooley catheter, anticoagulation, and/or recent renal biopsy initiated on CBI on admission with improvement noted on/off recurrence of hematuria urine appears to be clear at this time Urology consultation/recommendations noted on anticoagulation (5) Metastatic cancer: Code(s): C79.9 - Secondary malignant neoplasm of unspecified site Status: Suspected Assessment and Plan: unclear on source but findings once again noted on imaging Oncology recommendations noted Okay to place midline from renal perspective. Will continue to follow. Subjective Date/time seen: 03/27/23 11:34 Interval history: Follow-up for acute kidney injury/acute renal failure with dialysis dependence/on hemodialysis. Tolerated dialysis yesterday without any issues or problems; pain control seems reasonable at the time of my visit; still with on/off hematuria requiring on/off CBI; no other issues/events overnight or earlier this morning. Exam Narrative: General: large female in NAD Heart: normal S1 and S2; no rub Lungs: clear anteriorly but decreased at bases Abdomen: obese but soft, nondistended; mild TTP in lower abdomen; positive bowel sounds Extremities: no cyanosis or clubbing; 2+ edema Skin: warm and dry Objective Data Vital Signs Vital Signs: Vital Signs Temp Pulse Resp BP Pulse Ox O2 Del Method O2 Flow Rate 03/27/23 08:00 92 Nasal Cannula 2 03/27/23 08:00 94 03/27/23 07:41 91 Room Air 03/27/23 04:00 101 H 03/27/23 04:03 97.0 F L 105 H 20 91 03/27/23 04:03 108/62 03/27/23 00:00 103 H 03/26/23 20:00 113 H 03/26/23 20:00 106 H 20 87 L Room Air 03/26/23 22:00 98.1 F 106 H 20 116/62 87 L 03/26/23 16:00 103 H Intake/Output Intake/Output: Intake & Output 03/24/23 03/25/23 03/26/23 03/27/23 23:59 23:59 23:59 23:59 Intake Total 822 5100 1340 600 Output Total 0 4150 4200 Balance 822 950 -2860 600 Meds/Results Medications: Active Medications Generic Name Dose Route Start Last Admin Trade Name Freq PRN Reason Stop Dose Admin Acetaminophen 650 mg 03/20/23 23:49 03/27/23 05:39 Acetaminophen 325 Mg Tablet PO 650 mg Q6H PRN Administration Mild Pain (1-3) or Fever Albuterol 2 puff 03/21/23 14:06 03/27/23 11:25 Albuterol Sulfate (*Sp) Aerosol 1 Puff INHALATION 2 puff Q6HRT PRN Administration Shortness Of Breath Apixaban 5 mg 03/21/23 17:00 03/24/23 08:35 Apixaban 5 Mg Tablet PO 04/20/23 16:59 5 mg B
--- NOTE | 2023-03-27 11:34 | P.PNNP_ITS ---
Progress Note: A&P Assessment and Plan (1) ELPIDIO (acute kidney injury): Code(s): N17.9 - Acute kidney failure, unspecified Status: Acute Assessment and Plan: * apparently secondary to ATN * RENAL BIOPSY: acute kidney injury with ~ 10% interstitial fibrosis and tubular atrophy * what caused the ATN remains unclear * however, theoretically, it is possible her renal function could recovery * still with rising BUN and creatinine between dialysis treatments in associ ation with significant LE edema * HD tomorrow and continue T/T/S outpatient dialysis schedule * follow trend of labs and UOP for potential renal recovery (2) Urinary tract infection: Qualifiers: Hematuria presence: with hematuria Urinary tract infection type: acute cystitis Qualified Code(s): N30.01 - Acute cystitis with hematuria Code(s): N39.0 - Urinary tract infection, site not specified Status: Acute Assessment and Plan: * admission UA suggestive * E. coli by urine cultre * on antibiotics (3) Bilateral hydronephrosis: Code(s): N13.30 - Unspecified hydronephrosis Status: Acute Assessment and Plan: * as noted by CT and ultrasound imaging * cooley catheter in place (new catheter in place) * Urology following (4) Gross hematuria: Code(s): R31.0 - Gross hematuria Status: Acute Assessment and Plan: * secondary to cooley catheter, anticoagulation, and/or recent renal biopsy * initiated on CBI on admission with improvement noted * on/off recurrence of hematuria * urine appears to be clear at this time * Urology consultation/recommendations noted * on anticoagulation (5) Metastatic cancer: Code(s): C79.9 - Secondary malignant neoplasm of unspecified site Status: Suspected Assessment and Plan: * unclear on source but findings once again noted on imaging * Oncology recommendations noted Okay to place midline from renal perspective. Will continue to follow. Subjective Date/time seen: 03/27/23 11:34 Interval history: Follow-up for acute kidney injury/acute renal failure with dialysis dependence/on hemodialysis. Tolerated dialysis yesterday without any issues or problems; pain control seems reasonable at the time of my visit; still with on/off hematuria requiring on/off CBI; no other issues/events overnight or earlier this morning. Exam Narrative: General: large female in NAD Heart: normal S1 and S2; no rub Lungs: clear anteriorly but decreased at bases Abdomen: obese but soft, nondistended; mild TTP in lower abdomen; positive bowel sounds Extremities: no cyanosis or clubbing; 2+ edema Skin: warm and dry Objective Data Vital Signs Vital Signs: Vital Signs Temp Pulse Resp BP Pulse Ox O2 Del Method O2 Flow Rate 03/27/23 08:00 92 Nasal Cannula 2 03/27/23 08:00 94 03/27/23 07:41 91 Room Air 03/27/23 04:00 101 H 03/27/23 04:03 97.0 F L 105 H 20 91 03/27/23 04:03 108/62 03/27/23 00:00 103 H 03/26/23 20:00 113 H 03/26/23 20:00 106 H 20 87 L Room Air 03/26/23 22:00 98.1 F 106 H 20 116/62 87 L 03/26/23 16:00 103 H Intake/Output Intake/Output: Intake & Output 03/24/23 07
--- NOTE | 2023-03-27 12:10 | PCPTNOTE ---
Patient refused treatment this session stating she does not feel well.
[2023-03-27] MEDS: MORPHINE SULFATE (*CRX) 2 MG/ML INJ 1 MG IV PUSH (13:45)
[2023-03-27] MEDS: LIDOCAINE HCL 1% LOCAL INJ 2 ML AMPUL 5 ML INFILTRATE (15:15)
--- NOTE | 2023-03-27 16:36 | WPDUROPN2 ---
Progress Note: A&P Assessment and Plan (1) Morbid obesity: Code(s): E66.01 - Morbid (severe) obesity due to excess calories Status: Acute (2) ELPIDIO (acute kidney injury): Code(s): N17.9 - Acute kidney failure, unspecified Status: Acute Assessment and Plan: Creatinine is stable for her at 3.50. (3) Renal failure: Code(s): N19 - Unspecified kidney failure Status: Acute (4) Gross hematuria: Code(s): R31.0 - Gross hematuria Status: Acute Assessment and Plan: Unable to irrigate, CBI will not flow. Cooley was removed and replaced, when irrigant is instilled, it immediately flows out around the cooley and I am unable to irrigate the bladder or pull back to ensure there are no clots present. There is obvious blood from the meatus. (5) Urinary tract infection: Qualifiers: Hematuria presence: with hematuria Urinary tract infection type: acute cystitis Qualified Code(s): N30.01 - Acute cystitis with hematuria Code(s): N39.0 - Urinary tract infection, site not specified Status: Acute Assessment and Plan: E-Coli grown on culture from 03/20/23 (6) Retention of urine: Code(s): R33.9 - Retention of urine, unspecified Status: Acute Subjective Subjective Date/Time Seen: 03/27/23 16:36 The patient had gross hematuria return last Monday, CBI was restarted and urine cleared over the weekend. CBI was stopped, however today her catheter stopped draining and nursing re-positioned her cooley, but was still unable to irrigate her cooley or get it to drain. Urine Culture on 03/20/23 grew E-Coli Review of Systems Constitutional: Constitutional: Reports fatigue, Reports malaise and Reports weakness Cardiovascular: Cardiovascular: Denies chest pain Respiratory: Respiratory: Reports no additional respiratory complaints Gastrointestinal: Gastrointestinal: Reports abdominal pain, Denies nausea and Denies vomiting Genitourinary: Genitourinary: Reports hematuria, Denies dysuria, Reports pelvic pain, Denies flank pain, Denies urinary incontinence, Denies urinary hesitancy and Denies urinary urgency Exam Const: General: in distress and lethargic Nutritional Appearance: obese Resp: Effort & Inspection: normal respiratory effort Cardio: Rate: regular rate GI: GI Palp: Yes Soft to palpation and Yes Tenderness to palpation present (GI) (suprapubic area) : General: Yes no CVA tenderness Urinary Catheter: Urinary Catheter: patent and draining (no draining, urine leaking around catheter when irrigating, otherwise not draining), urine red and urine with clots Extrem: Right lower extremity: edema Left lower extremity: edema Objective Data Vital Signs Vital Signs: Vital Signs - 24 hr 03/26/23 22:00 03/26/23 20:00 03/26/23 20:00 Temperature 98.1 F Pulse Rate 106 H 106 H 113 H Respiratory Rate 20 20 Blood Pressure 116/62 Pulse Oximetry 87 L 87 L Oxygen Delivery Room Air Oxygen Flow Rate 03/27/23 00:00 03/27/23 04:03 03/27/23 04:03 Temperature 97.0 F L Pulse Rate 103 H 105 H Respiratory Rate 20 Blood Pressure 108/62 Pulse Oximetry 91 Oxygen Delivery Oxygen Flow Rate 03/27/23 04:00 03/27/23 07:41 03/27/23 08:00 Temperature Pulse Rate 101 H 94 Respiratory Rate Blood Pressure Pulse Oximetry 91 Oxygen Delivery Room Air Oxygen Flow Rate 03/27/23 08:00 03/27/23 12:00 03/27/23 14:00 Temperature 97.5 F L Pulse Rate 95 78 Respiratory Rate 20 Blood Pressure 138/82 Pulse Oximetry 92 97 Oxygen Delivery Nasal Cannula Oxygen Flow Rate 2 Intake/Output Intake/Output: Intake & Output 03/24/23 03/25/23 03/26/23 03/27/23 23:59 23:59 23:59 23:59 Intake Total 822 5100 1340 600 Output Total 0 4150 4200 Balance 822 950 -2860 600 Meds/Results Medications: Active Medications Generic Name Dose Route Start Last Admin Trade Name Freq PRN Reason Stop D
[2023-03-27] MEDS: MEROPENEM 500 MG in SODIUM CHLORIDE 0.9% IV 100 ML 200 ML IVPB (18:09)
--- NOTE | 2023-03-27 18:56 | PC.NURSE ---
This nurse spoke with gas station cashier urologist Dr. Grace about this pt. Pt got a stat ct scan of abdomen and pelvis to figure out why pt having little urine output and hematuria. This nurse helped uLisa Faust and Juli romero repair armature winder helper to irrigate and change out the 3 way cooley catheter. With irrigation we noticed the catheter was leaking and blood clots were shown in the syringe while irrigating. pt complains of deep pelvic pain. This nurse was told by Dr. Grace that the scan showed possible clot in bladder, bladder empty and correct placement of catheter. At this time states no surgery needed. This nurse was told that we could monitor urine output over night and reeavulate in the morning. If hospitalist wants CBI then a 22 kiswahili cooley needs to be placed. This nurse gave report to night auditor and informed charge nurse. Monitoring at this time.
[2023-03-27] MEDS: SALINE LOCK FLUSH 10 ML IV PUSH (21:36)
[2023-03-28] VITALS (30 sets, daily range): BP systolic 77–117; BP diastolic 40–68; PULSE 80–116; RESP 14–24; TEMP 35.7–36.6; O2SAT 86–100; BMI 51.8
[2023-03-28] MEDS: ONDANSETRON INJ 4 MG/2 ML VIAL IV PUSH (01:00)
[2023-03-28] MEDS: LEVOTHYROXINE SODIUM 50 MCG TABLET PO (06:00)
[2023-03-28] MEDS: SALINE LOCK FLUSH 10 ML IV PUSH ×2 (06:01→13:53)
--- NOTE | 2023-03-28 06:24 | PC.NURSE ---
pt BP 86/50 taken manually. call placed to Dr. Gonzalez who stated it is okay to give pt her 0900 dose of midodrine early
[2023-03-28] MEDS: MIDODRINE HCL 10 MG TABLET PO ×2 (06:29→17:00)
--- NOTE | 2023-03-28 08:13 | P.PNIM_ITS ---
Progress Note: A&P Assessment and Plan (1) Gross hematuria: Code(s): R31.0 - Gross hematuria Status: Acute Assessment and Plan: * Presented to the emergency department for evaluation of gross hematuria. * Three-way Cooley catheter replaced due to leaking around cooley * Blood clots present, will restart CBI * Urology has been consulted * Going back to OR today for clot evacuation 03/28 * Recommended patient keep chronic Cooley in place.? * H&H is stable at 8.6/30.7? * Will hold Eliquis for now * No further hematuria noted * Trend labs (2) Urinary tract infection: Qualifiers: Hematuria presence: with hematuria Urinary tract infection type: acute cystitis Qualified Code(s): N30.01 - Acute cystitis with hematuria Code(s): N39.0 - Urinary tract infection, site not specified Status: Acute Assessment and Plan: * Urine looks infected she has been started on ceftriaxone * urine culture grew ECOLI * Adjust antibiotic therapy to culture results.? * Meropenem continued. Needs 14 days of IV abx. EOT 04/04. * Midline placed 03/27 * Wilson from nephrology to place midline * Sensitivities show a very limited antibiotic choice * Leukocytosis improving (3) Renal failure: Qualifiers: Renal failure chronicity: unspecified chronicity Qualified Code(s): N19 - Unspecified kidney failure Code(s): N19 - Unspecified kidney failure Status: Acute Assessment and Plan: * ESRD with HD 3 times weekly * Currently BUN/Cr 23/3.40 * Nephrology on board * Continue dialysis per nephrology * Trend urine output * adjust therapy as indicated * Nephrology is okay with a midline placement if there is no other choice for access. (4) Left leg DVT: Qualifiers: Affected thrombotic vein of extremity: unspecified lower extremity distal vein Chronicity: acute Qualified Code(s): I82.4Z2 - Acute embolism and thrombosis of unspecified deep veins of left distal lower extremity Code(s): I82.402 - Acute embolism and thrombosis of unspecified deep veins of left lower extremity Status: Acute Assessment and Plan: * Currently on Eliquis * Found last visit * Legs still swollen * Bleeding precautions (5) Chronic anticoagulation: Code(s): Z79.01 - long-term (current) use of anticoagulants Status: Acute Assessment and Plan: * Recently found DVT * Continue Eliquis at d/c * SCDs for DVT prophylaxis Plan Added oxybutynin for bladder spasm Change pain medications to Oxy Midline placed Replaced 3 way catheter To OR with Dr Cedillo today for clot evacuation Subjective Date/time seen: 03/28/23 08:13 Interval history: 03/28/23 0915 Urine output minimal overnight still appears dark red. Overnight urology cover recommended placement of a 22 [place]ian rather than [address] CBI. I along with bedside nurse replace catheter this morning. Still unable to irrigate, fluid is coming around the catheter, and patient with severe pain. [place] with Urology contacted us and says she has patient will go to OR today with Dr. Cedillo for clot evacuation. Lane is having nausea this morning and the pain associated with her bladder. I gave her a 1 time dose of morphine 2 mg now. She is supposed to have dialysis today will coordinate with OR timing. 03/27/23 1222 Seen on rounds this morning resting in bed s
--- NOTE | 2023-03-28 08:13 | PM.IMPN ---
Progress Note: A&P Assessment and Plan (1) Gross hematuria: Code(s): R31.0 - Gross hematuria Status: Acute Assessment and Plan: Presented to the emergency department for evaluation of gross hematuria. Three-way Cooley catheter replaced due to leaking around cooley Blood clots present, will restart CBI Urology has been consulted Going back to OR today for clot evacuation 03/28 Recommended patient keep chronic Cooley in place.? H&H is stable at 8.6/30.7? Will hold Eliquis for now No further hematuria noted Trend labs (2) Urinary tract infection: Qualifiers: Hematuria presence: with hematuria Urinary tract infection type: acute cystitis Qualified Code(s): N30.01 - Acute cystitis with hematuria Code(s): N39.0 - Urinary tract infection, site not specified Status: Acute Assessment and Plan: Urine looks infected she has been started on ceftriaxone urine culture grew ECOLI Adjust antibiotic therapy to culture results.? Meropenem continued. Needs 14 days of IV abx. EOT 04/04. Midline placed 03/27 Rosamond from nephrology to place midline Sensitivities show a very limited antibiotic choice Leukocytosis improving (3) Renal failure: Qualifiers: Renal failure chronicity: unspecified chronicity Qualified Code(s): N19 - Unspecified kidney failure Code(s): N19 - Unspecified kidney failure Status: Acute Assessment and Plan: ESRD with HD 3 times weekly Currently BUN/Cr 23/3.40 Nephrology on board Continue dialysis per nephrology Trend urine output adjust therapy as indicated Nephrology is okay with a midline placement if there is no other choice for access. (4) Left leg DVT: Qualifiers: Affected thrombotic vein of extremity: unspecified lower extremity distal vein Chronicity: acute Qualified Code(s): I82.4Z2 - Acute embolism and thrombosis of unspecified deep veins of left distal lower extremity Code(s): I82.402 - Acute embolism and thrombosis of unspecified deep veins of left lower extremity Status: Acute Assessment and Plan: Currently on Eliquis Found last visit Legs still swollen Bleeding precautions (5) Chronic anticoagulation: Code(s): Z79.01 - truck terminal manager (current) use of anticoagulants Status: Acute Assessment and Plan: Recently found DVT Continue Eliquis at d/c SCDs for DVT prophylaxis Plan Added oxybutynin for bladder spasm Change pain medications to Oxy Midline placed Replaced 3 way catheter To OR with Dr Cedillo today for clot evacuation Subjective Date/time seen: 03/28/23 08:13 Interval history: 03/28/23 0915 Urine output minimal overnight still appears dark red. Overnight urology cover recommended placement of a 22 [place] rather than [address] for CBI. I along with bedside nurse replace catheter this morning. Still unable to irrigate, fluid is coming around the catheter, and patient with severe pain. [place] with Urology contacted us and says she has patient will go to OR today with Dr. Cedillo for clot evacuation. Lane is having nausea this morning and the pain associated with her bladder. I gave her a 1 time dose of morphine 2 mg now. She is supposed to have dialysis today will coordinate with OR timing. 03/27/23 1222 Seen on rounds this morning resting in bed she appears comfortable. she says that her pain is better controlled with oxycodone and oxybutynin. Besides her pain she does not have any concerns. Peer to peer was completed today with insurance improved for intermediate through 04/02. I also spoke with Dr. Rogel, vascular nurse, who is going to place midline today. Her urine appears dark red. I had concerns that she needed irrigation. I attempted to manually irrigate her Cooley but the solution kept leaking back out. the balloon only had 10 ml on it so I adde
[2023-03-28] MEDS: ACETAMINOPHEN 325 MG TABLET 650 MG PO ×2 (08:37→20:00)
[2023-03-28] MEDS: ESCITALOPRAM OXALATE 5 MG TABLET PO (08:42)
[2023-03-28] MEDS: PANTOPRAZOLE 40 MG TABLET PO (08:42)
[2023-03-28] MEDS: oxyBUTYnin CHLORIDE 5 MG TABLET PO ×2 (08:42→17:00)
[2023-03-28] MEDS: DOCUSATE SODIUM 100 MG CAPSULE PO ×2 (08:43→20:09)
[2023-03-28] MEDS: MORPHINE SULFATE (*CRX) 2 MG/ML INJ IV PUSH (09:33)
--- NOTE | 2023-03-28 10:40 | P.PNNP_ITS ---
Progress Note: A&P Assessment and Plan (1) ELPIDIO (acute kidney injury): Code(s): N17.9 - Acute kidney failure, unspecified Status: Acute Assessment and Plan: * apparently secondary to ATN * RENAL BIOPSY: acute kidney injury with ~ 10% interstitial fibrosis and tubular atrophy * what caused the ATN remains unclear * however, theoretically, it is possible her renal function could recovery * still with rising BUN and creatinine between dialysis treatments in associ ation with fluid retention issues * HD today and continue T/T/S outpatient dialysis schedule * follow trend of labs and UOP for potential renal recovery (2) Urinary tract infection: Qualifiers: Hematuria presence: with hematuria Urinary tract infection type: acute cystitis Qualified Code(s): N30.01 - Acute cystitis with hematuria Code(s): N39.0 - Urinary tract infection, site not specified Status: Acute Assessment and Plan: * admission UA suggestive * E. coli by urine cultre * on antibiotics (3) Bilateral hydronephrosis: Code(s): N13.30 - Unspecified hydronephrosis Status: Acute Assessment and Plan: * as noted by CT and ultrasound imaging * cooley catheter in place (although noted recent CT scan results) * Urology following (4) Gross hematuria: Code(s): R31.0 - Gross hematuria Status: Acute Assessment and Plan: * secondary to cooley catheter, anticoagulation, and/or recent renal biopsy * initiated on CBI on admission with improvement noted * still with on/off hematuria * urine appears to be clear at this time * Urology following * noted plan for clot evacuation in OR (5) Metastatic cancer: Code(s): C79.9 - Secondary malignant neoplasm of unspecified site Status: Suspected Assessment and Plan: * unclear on source but findings once again noted on imaging * Oncology recommendations noted Will continue to follow. Subjective Date/time seen: 03/28/23 10:40 Interval history: Follow-up for acute kidney injury/acute renal failure with dialysis dependence/on hemodialysis. Tolerating dialysis at the time of my visit (seen on HD at ~ 10:30AM); issues with hematuria and leakage around cooley catheter yesterday with inability to flush catheter as noted by events yesterday afternoon; still with significant abdominal pain and CT scan of abdomen/pelvis done yesterday afternoon for further evaluation with results noted; tentatively scheduled for OR today by Urology for clot evacuation. Exam Narrative: General: large female in NAD Heart: normal S1 and S2; no rub Lungs: clear anteriorly but decreased at bases Abdomen: obese but soft, nondistended; mild TTP in lower abdomen; positive bowel sounds Extremities: no cyanosis or clubbing; 2+ edema Skin: warm and intact Objective Data Vital Signs Vital Signs: Vital Signs Temp Pulse Resp BP Pulse Ox O2 Del Method O2 Flow Rate 03/28/23 08:00 93 Nasal Cannula 1 03/28/23 08:00 90 03/28/23 08:08 96.6 F L 91 16 114/68 94 03/28/23 06:00 96.9 F L 94 16 86/50 L 94 03/28/23 04:00 85 03/28/23 00:00 95 03/27/23 22:00 96.9 F L 92 12 140/88 96 03/27/23 20:00 95 03/27/23 20:00 93 Nasal Cannula 1 03/27/23 16:00 98 03/27/23 14:00 97.5 F L
--- NOTE | 2023-03-28 10:40 | PM.PNNEP ---
Progress Note: A&P Assessment and Plan (1) ELPIDIO (acute kidney injury): Code(s): N17.9 - Acute kidney failure, unspecified Status: Acute Assessment and Plan: apparently secondary to ATN RENAL BIOPSY: acute kidney injury with ~ 10% interstitial fibrosis and tubular atrophy what caused the ATN remains unclear however, theoretically, it is possible her renal function could recovery still with rising BUN and creatinine between dialysis treatments in association with fluid retention issues HD today and continue T/T/S outpatient dialysis schedule follow trend of labs and UOP for potential renal recovery (2) Urinary tract infection: Qualifiers: Hematuria presence: with hematuria Urinary tract infection type: acute cystitis Qualified Code(s): N30.01 - Acute cystitis with hematuria Code(s): N39.0 - Urinary tract infection, site not specified Status: Acute Assessment and Plan: admission UA suggestive E. coli by urine cultre on antibiotics (3) Bilateral hydronephrosis: Code(s): N13.30 - Unspecified hydronephrosis Status: Acute Assessment and Plan: as noted by CT and ultrasound imaging cooley catheter in place (although noted recent CT scan results) Urology following (4) Gross hematuria: Code(s): R31.0 - Gross hematuria Status: Acute Assessment and Plan: secondary to cooley catheter, anticoagulation, and/or recent renal biopsy initiated on CBI on admission with improvement noted still with on/off hematuria urine appears to be clear at this time Urology following noted plan for clot evacuation in OR (5) Metastatic cancer: Code(s): C79.9 - Secondary malignant neoplasm of unspecified site Status: Suspected Assessment and Plan: unclear on source but findings once again noted on imaging Oncology recommendations noted Will continue to follow. Subjective Date/time seen: 03/28/23 10:40 Interval history: Follow-up for acute kidney injury/acute renal failure with dialysis dependence/on hemodialysis. Tolerating dialysis at the time of my visit (seen on HD at ~ 10:30AM); issues with hematuria and leakage around cooley catheter yesterday with inability to flush catheter as noted by events yesterday afternoon; still with significant abdominal pain and CT scan of abdomen/pelvis done yesterday afternoon for further evaluation with results noted; tentatively scheduled for OR today by Urology for clot evacuation. Exam Narrative: General: large female in NAD Heart: normal S1 and S2; no rub Lungs: clear anteriorly but decreased at bases Abdomen: obese but soft, nondistended; mild TTP in lower abdomen; positive bowel sounds Extremities: no cyanosis or clubbing; 2+ edema Skin: warm and intact Objective Data Vital Signs Vital Signs: Vital Signs Temp Pulse Resp BP Pulse Ox O2 Del Method O2 Flow Rate 03/28/23 08:00 93 Nasal Cannula 1 03/28/23 08:00 90 03/28/23 08:08 96.6 F L 91 16 114/68 94 03/28/23 06:00 96.9 F L 94 16 86/50 L 94 03/28/23 04:00 85 03/28/23 00:00 95 03/27/23 22:00 96.9 F L 92 12 140/88 96 03/27/23 20:00 95 03/27/23 20:00 93 Nasal Cannula 1 03/27/23 16:00 98 03/27/23 14:00 97.5 F L 78 20 138/82 97 03/27/23 12:00 95 Intake/Output Intake/Output: Intake & Output 03/25/23 03/26/23 03/27/23 03/28/23 23:59 23:59 23:59 23:59 Intake Total 5100 1340 1100 100 Output Total 4150 4200 15 Balance 950 -2860 1100 85 Meds/Results Medications: Active Medications Generic Name Dose Route Start Last Admin Trade Name Freq PRN Reason Stop Dose Admin Acetaminophen 650 mg 03/20/23 23:49 03/28/23 08:37 Acetaminophen 325 Mg Tablet PO 650 mg Q6H PRN Administration Mild Pain (1-3) or Fever Albuterol 2 puff 03/21/23 14:06 03/27/23 11:25 Albuterol Sulfate (*Sp)
[2023-03-28] MEDS: EPOETIN ALFA 10,000 UNITS/ML VIAL 20000 UNITS IV PUSH (11:19)
--- NOTE | 2023-03-28 11:48 | PCPTNOTE ---
The patient treatment was not able to be completed due to patient in dialysis. Will plan to continue treatment per plan of care.
--- NOTE | 2023-03-28 12:05 | PCOTNOTE ---
Patient out of the room at this time. Patient is in dialysis and then has a procedure scheduled for this afternoon.
--- NOTE | 2023-03-28 12:49 | WPDUROPN2 ---
Progress Note: A&P Assessment and Plan (1) Retention of urine: Code(s): R33.9 - Retention of urine, unspecified Status: Acute Assessment and Plan: Patient to go to the OR this afternoon: Cystoscopy with clot evacuation, possible bilateral stent placement, possible bilateral retrograde pyelogram with Dr. Alcala. Keep NPO. Obtain consent. (2) ELPIDIO (acute kidney injury): Code(s): N17.9 - Acute kidney failure, unspecified Status: Acute (3) Bilateral hydronephrosis: Code(s): N13.30 - Unspecified hydronephrosis Status: Acute (4) Gross hematuria: Code(s): R31.0 - Gross hematuria Status: Acute Assessment and Plan: Keep CBI turned off. (5) Urinary tract infection: Qualifiers: Hematuria presence: with hematuria Urinary tract infection type: acute cystitis Qualified Code(s): N30.01 - Acute cystitis with hematuria Code(s): N39.0 - Urinary tract infection, site not specified Status: Acute Plan Cutlure grew E-Coli, continue IV antibiotics. Subjective Subjective Date/Time Seen: 03/28/23 12:49 Principal diagnosis: ELPIDIO/Bilateral Hydronephrosis/Bladder Clot/Gross Hematuria Interval history: Patient had a CT last night d/t catheter that was not draining. CT shows The bladder is decompressed by a Smith catheter and therefore is poorly evaluated. Hyperdense intraluminal material may represent blood/clot as noted in the given history. A 22fr [address] was placed today in an attempt to restart CBI, but nursing was still unable to irrigate or get CBI to flow. Patient was seen in dialysis at the bedside. Review of Systems Constitutional: Constitutional: Reports lethargy and Reports malaise Cardiovascular: Cardiovascular: Denies chest pain Respiratory: Respiratory: Reports dyspnea Gastrointestinal: Gastrointestinal: Denies nausea and Denies vomiting Exam Const: General: in distress and lethargic Resp: Effort & Inspection: normal respiratory effort Cardio: Rate: regular rate GI: GI Palp: Yes Soft to palpation and No Tenderness to palpation present (GI) : General: Yes no CVA tenderness Urinary Catheter: Urinary Catheter: urine dark and other (not draining) Extrem: Right lower extremity: edema Left lower extremity: edema Objective Data Vital Signs Vital Signs: Vital Signs - 24 hr 03/27/23 14:00 03/27/23 16:00 03/27/23 20:00 Temperature 97.5 F L Pulse Rate 78 98 Respiratory Rate 20 Blood Pressure 138/82 Pulse Oximetry 97 93 Oxygen Delivery Nasal Cannula Oxygen Flow Rate 1 03/27/23 20:00 03/27/23 22:00 03/28/23 00:00 Temperature 96.9 F L Pulse Rate 95 92 95 Respiratory Rate 12 Blood Pressure 140/88 Pulse Oximetry 96 Oxygen Delivery Oxygen Flow Rate 03/28/23 04:00 03/28/23 06:00 03/28/23 08:08 Temperature 96.9 F L 96.6 F L Pulse Rate 85 94 91 Respiratory Rate 16 16 Blood Pressure 86/50 L 114/68 Pulse Oximetry 94 94 Oxygen Delivery Oxygen Flow Rate 03/28/23 08:00 03/28/23 08:00 03/28/23 10:21 Temperature Pulse Rate 90 80 Respiratory Rate Blood Pressure 83/54 L Pulse Oximetry 93 Oxygen Delivery Nasal Cannula Oxygen Flow Rate 1 03/28/23 10:21 03/28/23 10:21 03/28/23 10:40 Temperature 97.6 F Pulse Rate 92 92 Respiratory Rate 24 H Blood Pressure 95/44 L 84/43 L Pulse Oximetry Oxygen Delivery Oxygen Flow Rate 1 03/28/23 11:00 03/28/23 11:20 03/28/23 11:40 Temperature Pulse Rate 92 96 92 Respiratory Rate Blood Pressure 115/55 L 98/46 L 117/63 Pulse Oximetry Oxygen Delivery Oxygen Flow Rate 03/28/23 12:00 Temperature Pulse Rate 93 Respiratory Rate Blood Pressure 83/41 L Pulse Oximetry Oxygen Delivery Oxygen Flow Rate Intake/Output Intake/Output: Intake & Output 03/25/23 03/26/23 03/27/23 03/28/23 23:59 23:59 23:59 23:59 Intake Total 5100 1340 1100 100 Output Total 4150 4200 15 Ba
--- NOTE | 2023-03-28 13:08 | WPDHPUPDATE1 ---
History and Physical Update Update Date/Time: 03/28/23 13:08 History and Physical has been reviewed, including an updated exam of the patient. There are NO changes in the patient's condition. Risks, benefits, and alternatives have been discussed and questions answered. Patient agrees to proceed with procedure. Proceed with cystoscopy, clot evacuation, possible bilateral retrogrades with stent placement
--- NOTE | 2023-03-28 14:17 | PC.NURSE ---
To OR per [ ], IV [midline L upper arm single lumen]. Report given to [constance]. 1415 left
--- NOTE | 2023-03-28 14:26 | WPDANESEPPF ---
Anes - Initial Pre Proc Eval Procedure: Operation Date: 03/28/23 15:00 Proposed Procedures p Cystoscopy, Evacuation Bladder Clots; Possible Bilateral Stent Placement, Bilateral Retrograde Pyelogram - Lenny Alcala MD Date/Time: 03/28/23 14:26 Surgeon: Edouard Dimas MD Pre Op Diagnosis: UTI Patient Data Age: 67 Gender: F Height: 1.63 m Weight: 137 kg Last Vital Signs Temp 36.4 C 03/28/23 10:21 Pulse 94 03/28/23 13:00 Resp 24 H 03/28/23 10:21 BP 89/46 L 03/28/23 13:00 Pulse Ox 94 03/28/23 08:08 O2 Del Method Nasal Cannula 03/28/23 08:00 O2 Flow Rate 1 03/28/23 10:21 Allergies Allergy/AdvReac Type Severity Reaction Status Date / Time povidone-iodine Allergy Intermediate Rash Verified 03/21/23 10:57 [From Betadine] ether Allergy Unknown Vomiting, Verified 03/27/23 08:09 Wheezing Anesthetics - Georgina Type- Allergy Nausea Verified 03/21/23 10:57 Parabens Iodinated Contrast Media Allergy Wheezing Verified 03/21/23 10:57 iohexol Allergy Anaphylaxis Verified 03/21/23 10:57 [From contrast - CT, X-RAY] Home Medications Medication Instructions Recorded Confirmed Type Eliquis 5 mg PO BID 03/11/23 03/21/23 History calcium acetate 667 mg PO TID 03/11/23 03/21/23 History albuterol sulfate 90 mcg/actuation 2 puff inhalation Q6HRT PRN 03/18/23 03/21/23 Rx aerosol inhaler (Proventil HFA) Shortness Of Breath #1 g docusate sodium 100 mg capsule 100 mg PO Q12HR #60 caps 03/18/23 03/21/23 Rx furosemide 80 mg tablet 80 mg PO BID #30 tabs 03/18/23 03/21/23 Rx levothyroxine 50 mcg tablet 50 mcg PO DAILY@0630 #30 tabs 03/18/23 03/21/23 Rx (Synthroid) midodrine 10 mg tablet 10 mg PO TID #60 tabs 03/18/23 03/21/23 Rx pantoprazole 40 mg tablet,delayed 40 mg PO QAM #30 tabs 03/18/23 03/21/23 Rx release No Home Medications 03/21/23 03/21/23 History Patient hx anesthesia problems: none Family hx anesthesia problems: none Results Review: All pre-operative results and documents have been reviewed as part of the pre-operative evaluation. [facility] Past Medical History Medical History (Updated 03/27/23 @ 16:46 by Luisa Faust APRN) Abnormal endometrial ultrasound Endometrial biopsy nondiagnostic in February 2023. Acute kidney injury Renal biopsy in February 2023 showed acute tubular injury. Anxiety Deep vein thrombosis of left lower extremity (02/2023) Morbid obesity Porcelain gallbladder Psychosis Schizophrenia Surgical History Surgical History (Updated 03/21/23 @ 18:06 by Va Ramos MD) History of arthroscopy of left knee History of tonsillectomy Family History Family History Mother Cerebrovascular accident Sibling Hepatitis C Father Acute myocardial infarction Social History Social History (Updated 03/21/23 @ 15:11 by Baylee Weinstein PA-C) Social History: Surrogate medical decision maker: Hector Mora, ex-. Code status: Full code. Smoking status: Never smoker Second hand tobacco smoke exposure: No Alcohol intake: never Alcohol use details: 1.5 glass of wine per day. Substance use: never Substance use type: other Other substance usage details: CBD Lack of Transportation: No Lack of Food: Never True Current Housing: I Have Housing Concerned About Future Housing: No Difficulty Paying Gas/Electric Bills: No Difficulty Paying for Meds: No Currently Unemployed: No Education: Master's Degree or Higher Difficulty w/ Childcare or Family Care: No Additional living arrangements comments: Lives in [place]. Additional occupation/education comments: PhD in nursing. Spiritual care concerns: No Anes - Eval Final PreProcedure Day of Procedure 03/28/23 14:26 Patient weight: morbidly obese and super morbidly obese Heart: regular rate and rhythm Lungs: clear to auscultation Airway: Mallampati scale class III Neurological: al
[2023-03-28] MEDS: SODIUM CHLORIDE 0.9% IV 500 ML 30 ML IV CONT (14:30)
[2023-03-28] MEDS: LIDOCAINE HCL 2% GEL UROJET 10 ML PKG MUCOUS MEM (15:09)
--- NOTE | 2023-03-28 15:14 | P.OP_ITS ---
Procedure Note - Detailed Date of Procedure 03/28/23 Pre-op Diagnosis UTI, HEMATURIA, MILD BILATERAL HYDRONEPHROSIS Post-op Diagnosis Same Procedure Performed CYSTOSCOPY, CLOT EVACUATION, COMPLEX MESA CATHETER PLACEMENT Surgeon Lenny Alcala MD Anesthesia MAC Findings Necrotic urethra and bladder. Unable to visualize ureteral orifices. No acute bleeding noted. Extremely small capacity bladder Description of Procedure Patient is taken to the operative suite correctly identified. Once she is placed in dorsal lithotomy position she was prepped draped usual sterile fashion. Twenty-two Jamaican scope was inserted into the urethra. Her urethra is fixed and firm. It is necrotic appearing in the proximal urethra. Upon entering the bladder some clot is noted and evacuated. There was only approximately 25 cc of clot noted. Reinspection reveals extremely necrotic appearing tissue throughout. This is predominant at the trigonal floor area. No discrete bleeding was noted. Ureteral orifices were not visualized. At this point the procedure was terminated. 2% viscous lidocaine was inserted into the urethra. Twenty Jamaican [address] was placed with 10 cc in the balloon. This connected to continuous bladder irrigation. It may irrigate poorly due to the extremely small capacity of the bladder. If at some point she developed significant hydronephrosis then she will require bilateral nephrostomy tubes. She would most likely require a tertiary care center if her bladder continues to necrosis. Estimated Blood Loss 0 Urine Output 50 Drains Yes Packing No Pathology None sent Complications No immediate complications Condition Stable Disposition PACU
[2023-03-28 16:59] LABS: Hematocrit 26.9 % (37.0-47.0); Hemoglobin 7.6 g/dL (12.0-15.0); Mean Corpuscular HGB Conc 28.3 g/dl (32-36); Mean Corpuscular Hemoglobin 29.2 pg (26-34); Mean Corpuscular Volume 103.5 fl (80-100); Mean Platelet Volume 8.9 fl (7.4-10.4); Platelet Count Result 216 k/mm3 (150-375); Red Cell Distribution Width 29.9 % (11.5-14.5); White Blood Count 17.5 K/mm3 (4.5-10.0)
[2023-03-28] MEDS: MEROPENEM 500 MG in SODIUM CHLORIDE 0.9% IV 100 ML 200 ML IVPB (17:00)
[2023-03-28 17:08] LABS: Lactic Acid Reflex 1.9 mmol/L (0.7-2.0)
[2023-03-28 17:10] LABS: Alanine Aminotransferase 26 U/L (6-35); Albumin Level 3.4 g/dL (3.5-5.1); Alkaline Phosphatase 1157 U/L (38-126); Anion Gap 10 mmol/L (8-16); Aspartate Amino Transferase 243 U/L (14-36); Bilirubin,Total 2.8 mg/dL (0.2-1.3); Blood Urea Nitrogen 18 mg/dL (7-17); Calcium 8.4 mg/dL (8.4-10.2); Carbon Dioxide 29 mmol/L (22-30); Chloride 96 mmol/L (98-107); Estimated CRCL calculation 25 ml/min; Estimated Glomerular Filt Rate 17; Glucose 78 mg/dL (65-110); Potassium 3.8 mmol/L (3.4-5.0); Sodium 135 mmol/L (137-145)
[2023-03-28 17:22] LABS: Band Neutrophils Percent 11 % (0-6); Lymphocytes Absolute Manual 1.92 K/mm3 (1.1-4.5); Metamyelocytes Percent 3 %; Monocytes Absolute Manual 0.52 K/mm3 (0.1-0.90); Monocytes Percent Manual 3 % (3-9); Neutrophils Absolute Manual 14.52 K/mm3 (1.7-7.2); Neutrophils Percent Manual 72 % (46-73); Total Cells Counted 100
[2023-03-28 17:23] LABS: Anisocytosis 1+ (NORMAL); Platelet Estimate Adequate (Adequate); Schistocytes None Seen (NORMAL); Target Cells 1+ (NORMAL)
--- NOTE | 2023-03-28 20:39 | PC.NURSE ---
report called to Karen BLANC at [facility]
--- NOTE | 2023-04-05 09:08 | P.TS_ITS ---
Transfer Discharge Sum: Prov Provider Date of admission: 03/21/23 07:53 Primary care physician: Magno Pickard, MD Admitting clinician: Edouard Dimas MD Consults: 03/20/23 Consult to Physician Routine Comment: Left voicemail [phone] 03/21 (, ) Consulting Provider: Kodak Ingram call center specialist/MD group to consult: nephrology Reason for consultation: dialysis Has provider been notified: Yes Consult to Physician Routine Comment: call to exchange 03/21/23 @ 0627/DYLAN,RN Consulting Provider: Lenny Alcala call center specialist/MD group to consult: urology Reason for consultation: gross hematuria Has provider been notified: Yes 03/21/23 Consult to Physician Routine Comment: Spoke w/office [phone] 03/21 (, ) Consulting Provider: Va Ramos call center specialist/MD group to consult: oncology Reason for consultation: metastatic disease Has provider been notified: Yes DS: Admitting Diagnosis Discharge Date 03/29/23 Admitting Diagnosis ELPIDIO DS: Discharge Diagnosis Discharge Diagnosis (1) Gross hematuria: Code(s): R31.0 - Gross hematuria Status: Acute Assessment and Plan: * Presented to the emergency department for evaluation of gross hematuria. * Three-way Cooley catheter replaced due to leaking around cooley * Blood clots present, will restart CBI * Urology has been consulted * Going back to OR today for clot evacuation 03/28 * Recommended patient keep chronic Cooley in place.? * H&H is stable at 8.6/30.7? * Will hold Eliquis for now * No further hematuria noted * Trend labs (2) Urinary tract infection: Qualifiers: Hematuria presence: with hematuria Urinary tract infection type: acute cystitis Qualified Code(s): N30.01 - Acute cystitis with hematuria Code(s): N39.0 - Urinary tract infection, site not specified Status: Acute Assessment and Plan: * Urine looks infected she has been started on ceftriaxone * urine culture grew ECOLI * Adjust antibiotic therapy to culture results.? * Meropenem continued. Needs 14 days of IV abx. EOT 04/04. * Midline placed 03/27 * [place] from nephrology to place midline * Sensitivities show a very limited antibiotic choice * Leukocytosis improving (3) Renal failure: Qualifiers: Renal failure chronicity: unspecified chronicity Qualified Code(s): N19 - Unspecified kidney failure Code(s): N19 - Unspecified kidney failure Status: Acute Assessment and Plan: * ESRD with HD 3 times weekly * Currently BUN/Cr 23/3.40 * Nephrology on board * Continue dialysis per nephrology * Trend urine output * adjust therapy as indicated * Nephrology is okay with a midline placement if there is no other choice for access. (4) Left leg DVT: Qualifiers: Affected thrombotic vein of extremity: unspecified lower extremity distal vein Chronicity: acute Qualified Code(s): I82.4Z2 - Acute embolism and thrombosis of unspecified deep veins of left distal lower extremity Code(s): I82.402 - Acute embolism and thrombosis of unspecified deep veins of left lower extremity Status: Acute Assessment and Plan: * Currently on Eliquis * Found last visit * Legs still swollen * Bleeding precautions (5) Chronic anticoagulation: Code(s): Z79.01 - Long
--- NOTE | 2023-04-05 09:08 | PM.TDS ---
Transfer Discharge Sum: Prov Provider Date of admission: 03/21/23 07:53 Primary care physician: Magno Pickard, Admitting clinician: Edouard Dimas MD Consults: 03/20/23 Consult to Physician Routine Comment: Left voicemail [phone] 03/21 (, ) Consulting Provider: Kodak Ingram skull grinder/MD group to consult: nephrology Reason for consultation: dialysis Has provider been notified: Yes Consult to Physician Routine Comment: call to exchange 03/21/23 @ 0627/DYLANRN Consulting Provider: Lenny Alcala skull grinder/MD group to consult: urology Reason for consultation: gross hematuria Has provider been notified: Yes 03/21/23 Consult to Physician Routine Comment: Spoke w/office [phone] 03/21 (, ) Consulting Provider: Va Ramos skull grinder/MD group to consult: oncology Reason for consultation: metastatic disease Has provider been notified: Yes DS: Admitting Diagnosis Discharge Date 03/29/23 Admitting Diagnosis ELPIDIO DS: Discharge Diagnosis Discharge Diagnosis (1) Gross hematuria: Code(s): R31.0 - Gross hematuria Status: Acute Assessment and Plan: Presented to the emergency department for evaluation of gross hematuria. Three-way Cooley catheter replaced due to leaking around cooley Blood clots present, will restart CBI Urology has been consulted Going back to OR today for clot evacuation 03/28 Recommended patient keep chronic Cooley in place.? H&H is stable at 8.6/30.7? Will hold Eliquis for now No further hematuria noted Trend labs (2) Urinary tract infection: Qualifiers: Hematuria presence: with hematuria Urinary tract infection type: acute cystitis Qualified Code(s): N30.01 - Acute cystitis with hematuria Code(s): N39.0 - Urinary tract infection, site not specified Status: Acute Assessment and Plan: Urine looks infected she has been started on ceftriaxone urine culture grew ECOLI Adjust antibiotic therapy to culture results.? Meropenem continued. Needs 14 days of IV abx. EOT 04/04. Midline placed 03/[address] [place] [address] midline Sensitivities show a very limited antibiotic choice Leukocytosis improving (3) Renal failure: Qualifiers: Renal failure chronicity: unspecified chronicity Qualified Code(s): N19 - Unspecified kidney failure Code(s): N19 - Unspecified kidney failure Status: Acute Assessment and Plan: ESRD with HD 3 times weekly Currently BUN/Cr 17/11.40 Nephrology on board Continue dialysis per nephrology Trend urine output adjust therapy as indicated Nephrology is okay with a midline placement if there is no other choice for access. 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
== END 2023-03-29 01:00 | disposition short-term general hospital (02) | DRG 690 ==
LOC: ANHED 15:14 → ANH3MEDSUR 19:19
PROVIDERS: Emergency Medicine; Internal Medicine Critical Care Medicine; Nurse Practitioner; Nurse Practitioner Acute Care; Physician Assistant; Urology; Admitting Provider Family Medicine; Emergency Provider Emergency Medicine; PCP Family Medicine; Visit Provider Nurse Practitioner
PROC: 0TCB8ZZ Extirpation of Matter from Bladder, Via Natural or Artificial Opening Endoscopic (ICD-10-PCS; CPT 52001; principal; 2023-03-28 15:00)
DX: N13.6 Pyonephrosis (principal); Z68.43 Body mass index [BMI] 50.0-59.9, adult; C79.82 Secondary malignant neoplasm of genital organs; I82.492 Acute embolism and thrombosis of other specified deep vein of left lower extremity; N17.0 Acute kidney failure with tubular necrosis; B96.20 Unspecified Escherichia coli [E. coli] as the cause of diseases classified elsewhere; N18.6 End stage renal disease; R33.9 Retention of urine, unspecified; E66.01 Morbid (severe) obesity due to excess calories; F20.9 Schizophrenia, unspecified; F41.9 Anxiety disorder, unspecified; R31.0 Gross hematuria; R93.5 Abnormal findings on diagnostic imaging of other abdominal regions, including retroperitoneum; Z79.01 Long term (current) use of anticoagulants; Z99.2 Dependence on renal dialysis
CPT/HCPCS: 36415; 36569; 74176; 76775; 80053; 80074; 81001; 82948; 83605; 83735; 84439; 84443; 85025; 85027; 85610; 85730; 87077; 87086; 87186; 93922; 94640; 96365; 96372; 96375; 96376; 97110; 97162; 97166; 97530; 97535; 99199; 99285; A9270; C1751; G0257; G0378; J0696; J0780; J1644; J2185; J2250; J2270; J2371; J2405; J2704; J3010; J7030; J7040; P9047; Q4081